=== PATIENT | female | born 1965 | race Caucasian/White ===

== ENCOUNTER 2019-12-25 08:59 | Outpatient (REF) | payer OTHER, SELFPAY ==
[2019-12-25 11:34] LABS: Free T4 (Free Thyroxine) 1.26 ng/dL (0.71-1.85)
== END 2019-12-25 09:00 | disposition home or self-care (01) ==
LOC: HO.10HDL 08:59
PROVIDERS: Visit Provider Internal Medicine Endocrinology, Diabetes & Metabolism
DX: E03.8 Other specified hypothyroidism (principal)
CPT/HCPCS: 84439; 84443

== ENCOUNTER → 2020-01-19 13:59 | Outpatient (BNVA) | payer OTHER, SELFPAY | PROVIDERS: PCP Internal Medicine; Referring Provider Internal Medicine; Visit Provider Internal Medicine Cardiovascular Disease | DX: R00.2 Palpitations (principal) | CPT/HCPCS: 93005; 99212 ==

== ENCOUNTER → 2020-01-26 09:30 | Outpatient (BNVA) | payer OTHER, SELFPAY | PROVIDERS: PCP Internal Medicine; Visit Provider Internal Medicine Cardiovascular Disease | DX: Z76.89 Persons encountering health services in other specified circumstances (principal) ==

== ENCOUNTER → 2020-01-26 | Outpatient (REF) | payer OTHER, SELFPAY ==
--- NOTE | 2020-01-26 13:30 | ECG_ITS ---
Hook-up date: 2020-01-26 10:37:00 Duration: 47:59:00 Test Indications: PALPITATIONS Medications: [id number] QRS complexes * Ventricular ectopics which represent % of total QRS comp. * Supraventricular ectopics which represent % of total QRS comp. * Paced QRS complexs which represent % of total QRS comp. VENTRICULAR ECTOPY * Isolated * Bigeminal Cycles * Couplets * Runs * Beats in Runs * Beats LONGEST at * BPM at :: -- * Beats FASTEST at * BPM at :: -- SUPRAVENTRICULAR ECTOPY * Isolated * Couplets * Runs * Beats in Runs * Beats LONGEST at * BPM at :: -- * Beats FASTEST at * BPM at :: -- HEART RATES 47 MIN at 05:08:13 2020-01-27 65 AVG 131 MAX at 09:20:52 2020-01-27 LONGEST RR 1.3040 secs at 03:40:13 2020-01-28 S-T LEVELS Channel 1 - 128 mm at 10:37:00 2020-01-26 - 128 mm at 10:37:00 2020-01-26 Channel 2 - 128 mm at 10:37:00 2020-01-26 - 128 mm at 10:37:00 2020-01-26 Channel 3 - 128 mm at 02:95:61 -- - 128 mm at 02:95:61 Basic rhythm Normal sinus rhythm No long pause or profound bradycardia No dangerous dysrhythm periods No diary submitted Referred By: Brennon Millard Overread By: ROCIO MURO MD
== END ==
LOC: HO.CARD
PROVIDERS: Visit Provider Internal Medicine Cardiovascular Disease
DX: R00.2 Palpitations (principal)
CPT/HCPCS: 93226

== ENCOUNTER 2020-01-28 07:45 | Outpatient (REF) | payer OTHER, SELFPAY ==
--- NOTE | 2020-01-28 07:49 | MM_ITS ---
EXAMINATION: MM SCREENING DIGITAL MAMMOGRAPHY, BILATERAL CLINICAL INFORMATION: Screening. Asymptomatic. The lifetime risk of breast cancer based on the Tyrer-Cuzick Model is 6%. COMPARISON: Mammography: 01/15/2019, 01/01/2018 TECHNIQUE: Digital mammography is performed in craniocaudal and mediolateral oblique views along with computer-aided detection (CAD). Additional bilateral exaggerated CC views are provided. FINDINGS: The breasts are heterogeneously dense, which may obscure small masses (ACR BI-RADS breast composition Category c). There are no significant masses, abnormal calcifications, or other abnormalities. There are scattered calcifications central and outer breasts again noted. The left CC synthesized view has some digital processing artifact, not present on tomography or other 2 views. The axilla and skin contours are unremarkable. MM/MM screening mammo BI IMPRESSION: No significant changes from prior exams. ASSESSMENT: BI-RADS 2: Benign RECOMMENDATION: Routine annual mammography screening. This patient's information was entered into a reminder system with a target due date for their next mammogram.
== END 2020-01-28 07:46 | disposition home or self-care (01) ==
LOC: HO.MAMMO 07:45
PROVIDERS: PCP Internal Medicine; Visit Provider Internal Medicine
DX: Z12.31 Encounter for screening mammogram for malignant neoplasm of breast (principal)
CPT/HCPCS: 77067

== ENCOUNTER 2020-02-16 08:46 | Outpatient (REF) | payer OTHER, SELFPAY ==
[2020-02-16 11:14] LABS: Free T4 (Free Thyroxine) 1.08 ng/dL (0.71-1.85); Thyroid Stimulating Hormone 0.39 uIU/mL (0.32-4.0)
== END 2020-02-16 08:47 | disposition home or self-care (01) ==
LOC: HO.10HDL 08:46
PROVIDERS: Visit Provider Internal Medicine Endocrinology, Diabetes & Metabolism
DX: E03.8 Other specified hypothyroidism (principal)
CPT/HCPCS: 36415; 84439; 84443

== ENCOUNTER 2020-02-27 11:55 | Outpatient (REF) | payer OTHER, SELFPAY | END 2020-02-27 11:56 | disposition home or self-care (01) | LOC: HO.LNP 11:55 | PROVIDERS: Visit Provider Nurse Practitioner Family | DX: Z20.822 Contact with and (suspected) exposure to COVID-19 (principal) | CPT/HCPCS: U0003 ==

== ENCOUNTER 2020-05-10 11:11 | Outpatient (REF) | payer OTHER, SELFPAY ==
--- NOTE | ~2020-05-10 | XR_ITS ---
EXAMINATION: XR CLAVICLE, LEFT CLINICAL INFORMATION: Hypertrophy bone, left shoulder COMPARISON: Left shoulder 07/22/2009 TECHNIQUE: Two views of the left clavicle. FINDINGS: The clavicle is intact. The bones and soft tissues are normal. No fracture. Acromioclavicular joint alignment is anatomic. XR/XR clavicle LT IMPRESSION: Normal left clavicle. No change from 07/23/2019.
== END 2020-05-10 11:12 | disposition home or self-care (01) ==
LOC: HO.HMGCX 11:11
PROVIDERS: PCP Internal Medicine; Visit Provider Nurse Practitioner Family
DX: M89.312 Hypertrophy of bone, left shoulder (principal)
CPT/HCPCS: 73000

== ENCOUNTER 2020-05-12 10:23 | Outpatient (REF) | payer OTHER, SELFPAY ==
--- NOTE | ~2020-05-12 | US_ITS ---
EXAMINATION: US SOFT TISSUE NECK CLINICAL INFORMATION: Enlargement of clavicle, bump on the clavicle. COMPARISON: None. TECHNIQUE: Ultrasound of the neck soft tissues is performed with high- frequency crespo-scale imaging and color Doppler. FINDINGS: Limited imaging through the left medial collar bone reveals no swelling, mass. There are no lymph nodes seen in the area of palpable lump or medial clavicular bone. US/US soft tiss head and/or neck IMPRESSION: No focal lesion or mass seen along the left medial collar bone. No abnormal lymph nodes seen either.
== END 2020-05-12 10:24 | disposition home or self-care (01) ==
LOC: HO.HMGCX 10:23
PROVIDERS: PCP Internal Medicine; Visit Provider Nurse Practitioner Family
DX: M89.312 Hypertrophy of bone, left shoulder (principal)
CPT/HCPCS: 76536

== ENCOUNTER → 2020-06-08 08:22 | Outpatient (BNVA) | payer OTHER, SELFPAY | PROVIDERS: PCP Internal Medicine; Referring Provider Internal Medicine; Visit Provider Internal Medicine Endocrinology, Diabetes & Metabolism | DX: E03.8 Other specified hypothyroidism (principal); E06.3 Autoimmune thyroiditis | CPT/HCPCS: 99212 ==

== ENCOUNTER 2020-09-10 07:54 | Outpatient (REF) | payer OTHER, SELFPAY ==
[2020-09-10 11:09] LABS: MANUAL DIFF FLAG NO
[2020-09-10 11:23] LABS: Basophils Percent Auto 0.8 % (0-2); Eosinophils Absolute Auto 0.1 X10*3/uL (0.0-0.4); Eosinophils Percent Auto 1.5 % (0-4); Hematocrit 39.1 % (37-47); Hemoglobin 12.7 g/dl (12.0-16.0); Imm Gran Abs Auto 0.02 X10*3/uL (0.00-0.03); Imm Gran Pct Auto 0.4 % (0.0-0.4); Lymphocytes Absolute Auto 1.7 X10*3/uL (1.2-4.9); Lymphocytes Percent Auto 32.6 % (20-40); Mean Corpuscular HGB Conc 32.5 g/dl (31.0-35.0); Mean Corpuscular Hemoglobin 30.1 pg (27.0-33.0); Mean Corpuscular Volume 92.7 fL (80-98); Mean Platelet Volume 10.9 fL (9.4-12.3); Monocytes Absolute Auto 0.4 X10*3/uL (0.1-1.2); Monocytes Percent Auto 8.3 % (2-11); Neutrophils Percent Auto 56.4 % (45-73); Platelet Count 275 X10*3/uL (160-400); Red Blood Count 4.22 X10*6/uL (4.20-5.50); Red Cell Distribution Width 12.6 % (11.0-16.0); White Blood Count 5.3 X10*3/uL (4.8-10.8)
[2020-09-10 11:34] LABS: Alanine Aminotransferase 24 U/L (0-31); Albumin Level 4.4 g/dL (3.5-5.0); Alkaline Phosphatase 82 U/L (39-117); Anion Gap 11 (12-20); Aspartate Amino Transferase 25 U/L (5-31); Bilirubin Total 0.8 mg/dL (0.0-1.0); Blood Urea Nitrogen 11 mg/dL (9-16); Calcium 9.4 mg/dL (8.4-10.2); Carbon Dioxide 28 mmol/L (22-29); Chloride 105 mmol/L (96-108); Estimated Glomerular Filt Rate > 60; Glucose Random 88 mg/dL (60-115); Sodium 139 mmol/L (135-145); Total Protein 7.1 g/dL (6.5-8.0)
[2020-09-10 11:58] LABS: TSH reflex Free T4 1.03 uIU/mL (0.32-4.0)
[2020-09-10 11:59] LABS: Free T4 (Free Thyroxine) 1.06 ng/dL (0.71-1.85); Thyroid Stimulating Hormone 1.02 uIU/mL (0.32-4.0)
== END 2020-09-10 07:55 | disposition home or self-care (01) ==
LOC: HO.HMGCLDS 07:54
PROVIDERS: Internal Medicine Endocrinology, Diabetes & Metabolism; PCP Internal Medicine; Visit Provider Internal Medicine
DX: E03.8 Other specified hypothyroidism (principal); M54.2 Cervicalgia; R22.1 Localized swelling, mass and lump, neck; E06.3 Autoimmune thyroiditis
CPT/HCPCS: 36415; 80053; 84439; 84443; 85025

== ENCOUNTER 2020-09-21 11:23 | Outpatient (REF) | payer OTHER, SELFPAY ==
--- NOTE | ~2020-09-21 | US_ITS ---
EXAMINATION: US THYROID CLINICAL INFORMATION: Hypothyroidism. COMPARISON: Ultrasound soft tissue head and/or neck 05/12/2020. TECHNIQUE: Linear transducer grayscale and color Doppler examination with attention to the region of the thyroid. FINDINGS: SIZE: Measurements of the thyroid lobes and nodules are given in sagittal, anteroposterior and transverse dimensions respectively. Right Thyroid Lobe: 2.8 x 1.6 x 1.1 cm, volume 2.6 mL. Parenchyma: The gland echotexture is heterogeneous. Thyroid vascularity is increased. Left Thyroid Lobe: 3.6 x 1.2 x 1.5 cm, volume 3.4 mL. Parenchyma: The gland echotexture is heterogeneous. Thyroid vascularity is increased. Isthmus: 0.2 cm in maximum AP dimension. Estimated total number of nodules greater than or equal to 1 cm: 0. Motor Equipment Commanding Officer nodules are described as follows: 1. Location: Left medial upper. Size: 0.29 x 0.22 x 0.39 cm, volume 0.01 mL. Nodule characteristics: Composition: Cystic(0). ACR TI-RADS total points: 0 ACR TI-RADS category: 1 NODES: No lymphadenopathy is seen in the tissue surrounding the thyroid gland. US/US thyroid IMPRESSION: Heterogeneous vascular nonenlarged thyroid gland with punctate cluster of calcification midpole medially right lobe. Subcentimeter nonsuspicious nodule left lobe. Recommend continued ultrasound follow-up. ACR TI-RADS RECOMMENDATION REFERENCE: Ultrasound-guided fine-needle aspiration, followup ultrasound, no further follow up. * TR1 (0 point) and TR 2 (2 points): No FNA or follow up * TR3 (3 points): FNA if more than or equal to 2.5 cm in maximum dimension, followup ultrasound in 1, 3 and 5 years if 1.5 to 2.4 cm in maximum dimension. * TR4 (4-6 points): FNA if more than or equal to 1.5 cm in maximum dimension, followup ultrasound in 1, 2, 3 and 5 years if 1 to 1.4 cm in maximum dimension. * TR5 (more than or equal to 7 points): FNA if more than or equal to 1 cm in maximum dimension, followup ultrasound every year for 5 years if 0.5 to 0.9 cm in maximum dimension. * TR3, TR4 or TR5 nodules that are below the size threshold for follow up receive no follow up.
== END 2020-09-21 11:24 | disposition home or self-care (01) ==
LOC: HO.HMGCX 11:23
PROVIDERS: PCP Internal Medicine; Visit Provider Internal Medicine
DX: E03.8 Other specified hypothyroidism (principal); M54.2 Cervicalgia; R22.1 Localized swelling, mass and lump, neck
CPT/HCPCS: 76536

== ENCOUNTER 2020-10-09 13:24 | Outpatient (REF) | payer OTHER, SELFPAY | END 2020-10-09 13:25 | disposition home or self-care (01) | LOC: HO.LNP 13:24 | PROVIDERS: Visit Provider Hospitalist | DX: Z20.822 Contact with and (suspected) exposure to COVID-19 (principal) | CPT/HCPCS: U0003; U0005 ==

== ENCOUNTER 2021-03-07 07:55 | Outpatient (REF) | payer OTHER, SELFPAY ==
--- NOTE | ~2021-03-07 | MM_ITS ---
EXAMINATION: MM SCREENING DIGITAL BREAST TOMOSYNTHESIS, BILATERAL CLINICAL INFORMATION: Screening. Asymptomatic. The lifetime risk of breast cancer based on the Tyrer-Cuzick Model is 6%. COMPARISON: Mammography: 01/28/2020, 01/15/2019, 01/01/2018 TECHNIQUE: Digital breast tomosynthesis is performed in both the craniocaudal and mediolateral oblique views along with computer-aided detection (CAD). Synthesized 2D images are generated from the tomosynthesis. Additional bilateral MLO views are provided. FINDINGS: The breasts are heterogeneously dense, which may obscure small masses (ACR BI-RADS breast composition Category c). There are no significant masses, abnormal calcifications, or other abnormalities. Parenchymal pattern is similar to prior studies. There is no developing density or architectural abnormality. The axilla and skin contours are unremarkable. No significant changes. MM/MM tomosynthesis screening BI IMPRESSION: No mammographic evidence of malignancy. ASSESSMENT: BI-RADS 1: Negative RECOMMENDATION: Routine annual mammography screening. This patient's information was entered into a reminder system with a target due date for their next mammogram.
== END 2021-03-07 07:56 | disposition home or self-care (01) ==
LOC: HO.MAMMO 07:55
PROVIDERS: PCP Internal Medicine; Visit Provider Internal Medicine
DX: Z12.31 Encounter for screening mammogram for malignant neoplasm of breast (principal)
CPT/HCPCS: 77063; 77067

== ENCOUNTER 2021-05-31 07:58 | Outpatient (REF) | payer OTHER, SELFPAY ==
[2021-05-31 09:49] LABS: Thyroid Stimulating Hormone 1.78 uIU/mL (0.32-4.0)
== END 2021-05-31 07:59 | disposition home or self-care (01) ==
LOC: HO.LAB 07:58
PROVIDERS: PCP Internal Medicine; Visit Provider Internal Medicine Endocrinology, Diabetes & Metabolism
DX: E03.8 Other specified hypothyroidism (principal); E06.3 Autoimmune thyroiditis
CPT/HCPCS: 36415; 84439; 84443; 99212

== ENCOUNTER 2021-08-08 09:50 | Outpatient (REF) | payer OTHER, SELFPAY ==
[2021-08-08 12:35] LABS: TSH reflex Free T4 0.79 uIU/mL (0.32-4.0)
[2021-08-08 12:42] LABS: Alanine Aminotransferase 23 U/L (0-31); Albumin Level 4.4 g/dL (3.5-5.0); Alkaline Phosphatase 94 U/L (39-117); Anion Gap 11 (12-20); Aspartate Amino Transferase 23 U/L (5-31); Bilirubin Total 0.4 mg/dL (0.0-1.0); Blood Urea Nitrogen 15 mg/dL (9-16); Calcium 9.3 mg/dL (8.4-10.2); Carbon Dioxide 28 mmol/L (22-29); Chloride 106 mmol/L (96-108); Estimated Glomerular Filt Rate > 60; Glucose Random 101 mg/dL (60-115); Potassium 4.9 mmol/L (3.3-5.1); Sodium 140 mmol/L (135-145); Total Protein 7.1 g/dL (6.5-8.0)
== END 2021-08-08 09:51 | disposition home or self-care (01) ==
LOC: HO.HMGCLDS 09:50
PROVIDERS: Visit Provider Internal Medicine
DX: E03.9 Hypothyroidism, unspecified (principal); Z91.09 Other allergy status, other than to drugs and biological substances
CPT/HCPCS: 36415; 80053; 84443

== ENCOUNTER 2021-09-22 12:08 | Outpatient (REF) | payer OTHER, SELFPAY ==
[2021-09-22 12:57] LABS: Influenza A PCR NEGATIVE (Negative); Influenza B PCR NEGATIVE (Negative); Resp Syncy Virus RNA Qual PCR NEGATIVE (Negative); SARS COV2 PCR INHOUSE NEGATIVE (Negative)
== END 2021-09-22 12:09 | disposition home or self-care (01) ==
LOC: HO.LNP 12:08
PROVIDERS: Visit Provider Internal Medicine
DX: Z20.822 Contact with and (suspected) exposure to COVID-19 (principal); R09.89 Other specified symptoms and signs involving the circulatory and respiratory systems
CPT/HCPCS: 0241U

== ENCOUNTER 2022-01-27 00:21 | Emergency (ER) | payer OTHER, SELFPAY ==
[2022-01-27 00:23] VITALS: BP 130/91; PULSE 70; RESP 18; TEMP 36.4; O2SAT 100; BMI 22.3
[2022-01-27 00:35] LABS: MANUAL DIFF FLAG NO
[2022-01-27 00:44] LABS: Basophils Percent Auto 0.6 % (0-2); Eosinophils Absolute Auto 0.1 X10*3/uL (0.0-0.4); Eosinophils Percent Auto 0.9 % (0-4); Hematocrit 37.3 % (37.0-47.0); Hemoglobin 12.6 g/dl (12.0-16.0); Imm Gran Abs Auto 0.01 X10*3/uL (0.00-0.03); Imm Gran Pct Auto 0.1 % (0.0-0.4); Lymphocytes Absolute Auto 2.8 X10*3/uL (1.2-4.9); Lymphocytes Percent Auto 41.5 % (20-40); Mean Corpuscular HGB Conc 33.8 g/dl (31.0-35.0); Mean Corpuscular Hemoglobin 30.8 pg (27.0-33.0); Mean Corpuscular Volume 91.2 fL (80.0-98.0); Mean Platelet Volume 10.8 fL (9.4-12.3); Monocytes Absolute Auto 0.4 X10*3/uL (0.1-1.2); Neutrophils Absolute Auto 3.4 x10*3/uL (2.0-8.3); Neutrophils Percent Auto 50.9 % (45-73); Platelet Count 226 X10*3/uL (160-400); Red Blood Count 4.09 X10*6/uL (4.20-5.50); Red Cell Distribution Width 12.1 % (11.0-16.0); White Blood Count 6.7 X10*3/uL (4.8-10.8)
--- NOTE | 2022-01-27 00:59 | ED_ITS ---
HPI - GI Bleed General Chief complaint: GI Bleed Stated complaint: rectal bleeding Time Seen by Provider: 01/27/22 00:50 Source: patient Mode of arrival: ambulatory Limitations: no limitations History of Present Illness HPI Narrative: rectal bleeding tonight,denies abdominal pain,denies vomiting,hx of hemorroid complaint: blood streaked stool Onset (ago): hour(s) (3) Pain Consistency: intermittent Severity: mild Relieving factors: none Exacerbating factors: none Related Data Previous Rx's Medication Instructions Recorded levothyroxine 100 mcg tablet 100 mcg PO .COMPLEX 30 days #30 07/12/21 tabs doxycycline monohydrate 100 mg 100 mg PO BID #14 caps 12/17/21 capsule mupirocin 2 % topical ointment 1 appl topical BID #15 grams 12/17/21 fluconazole 150 mg tablet 150 mg PO .COMPLEX 2 doses #2 tabs 12/27/21 Allergies Allergy/AdvReac Type Severity Reaction Status Date / Time No Known Allergies Allergy Unknown Verified 12/17/21 09:13 Review of Systems Constitutional: Constitutional: Reports no additional constitutional complaints Eyes: Eyes: Reports no additional eye complaints Respiratory: Respiratory: Reports no additional respiratory complaints [facility] Past Medical History Attestation statement: The following information was validated with the patient. [facility] Narrative: hypothyroidism Medical History Hypothyroidism Surgical History H/O dilation and curettage History of partial hysterectomy Family History Family History Father Alzheimer disease Mother Lung cancer Social History Social History Housing: House Alcohol intake: current Alcohol intake frequency: a few times a month Patient Tobacco Use Status: Former Tobacco user Tobacco use type: Cigarette Cigarettes Per Day: 1 Years Smoked: 20 years Smoked in Last 30 Days: No e-Cigarette/Vaping Use: Never Used Use of substances other than those prescribed or required for medical reasons: No Advance Directives: No Advance Directives Information Provided: No Patient : No service: No Current occupational status: employed Cognitive needs: No Hearing needs: No Vision needs: No Physical Exam Vital Signs: Vital Signs: Last Vital Signs Temp 97.6 F 01/27/22 00:23 Pulse 70 01/27/22 00:23 Resp 18 01/27/22 00:23 BP 130/91 H 01/27/22 00:23 Pulse Ox 100 01/27/22 00:23 O2 Del Method 01/27/22 00:23 BMI result Body Mass Index 22.3 Const: General: cooperative, healthy appearing and comfortable Orientation/consciousness: oriented to person, oriented to place, oriented to time and patient oriented x3 HEENT: Head: Yes normal to inspection General nose exam: Normal external nose present Face and sinus: Yes normal facial exam Mouth: Normal oral and palatal mucosa present Throat: Yes posterior oropharynx normal Neck: Neck: Yes normal visual inspection and Yes full ROM Chest: Chest palpation & inspection: normal inspection of the chest Resp: Effort & Inspection: normal respiratory effort and able to speak in complete sentences Auscultation: clear to auscultation bilaterally Cardio: Rate: regular rate Rhythm: regular rhythm GI: Inspection: Yes normal to inspection Palpation (GI): Soft to palpation, not firm, nontender and no guarding Auscultation: normal bowel sounds Rectal Exam - Female: normal sphincter tone and External hemorrhoid(s) present (large hemorrhoid ) Neuro: General: oriented to person, oriented to place, oriented to time and patient oriented x3 Course Reevaluation(s) Reevaluation #1: I did a rectal exam she has a large external hemorrhoid, the etiology of the bleeding most likely is the hemorrhoid, she has a normal H&H, I think she can be discharged home with follow-up with a cable television installer. I discussed this with the patient she is very comfortable with the plan. Shared decision making done she agree with the plan of care. Time: 01:07 Medical Decision Making Differential Diagnosis divericular bleeding.colon ca Admission/Observation Consideration of admission/observation: Escalation of care including admission/observation considered Lab Data MDM Lab Attestation statement: I reviewed the patient's lab results. Result Diagrams: 01/27/22 00:31 01/27/22 00:31 Labs: Lab Results 01/27/22 01/27/22 01/27/22 Range/Units 00:31 00:31 01:11 WBC 6.7 (4.8-10.8) X10*3/uL RBC 4.09 L (4.20-5.50) X10*6/uL Hgb 12.6 (12.0-16.0) g/dl Hct 37.3 (37.0-47.0) % MCV 91.2 (80.0-98.0) fL MCH 30.8 (27.0-33.0) pg MCHC 33.8 (31.0-35.0) g/dl RDW 12.1 (11.0-16.0) % Plt Count 226 (160-400) X10*3/uL MPV 10.8 (9.4-12.3) fL Immature Gran % (Auto) 0.1 (0.0-0.4) % Neut % (Auto) 50.9 (45-73) % Lymph % (Auto) 41.5 H (20-40) % [place] % (Auto) 6.0 (2-11) % Eos % (Auto) 0.9 (0-4) % Baso % (Auto) 0.6 (0-2) % Lymph # (Auto) 2.8 (1.2-4.9) X10*3/uL [place] # (Auto) 0.4 (0.1-1.2) X10*3/uL Eos # (Auto) 0.1 (0.0-0.4) X10*3/uL Baso # (Auto) 0.0 (0.0-0.2) X10*3/uL Abs Immat Gran (auto) 0.01 (0.00-0.03) X10*3/uL Absolute Neuts (auto) 3.4 (2.0-8.3) x10*3/uL Absolute Nucleated RBC 0.000 (0.0-0.012) X10*3/uL Nucleated RBC % (auto) 0.0 (0.0-0.2) /100WBC Sodium 137 (135-145) mmol/L Potassium 3.8 D (3.3-5.1) mmol/L Chloride 102 (96-108) mmol/L Carbon Dioxide 28 (22-29) mmol/L Anion Gap 11 L (12-20) BUN 12 (9-16) mg/dL Creatinine 0.66 (0.5-1.4) mg/dL Estim Creat Clear Calc 83.1 Estimated GFR > 60 Random Glucose 95 (60-115) mg/dL Calcium 9.5 (8.4-10.2) mg/dL Total Bilirubin 0.4 (0.0-1.0) mg/dL AST 25 (5-31) U/L ALT 24 (0-31) U/L Alkaline Phosphatase 98 (39-117) U/L Total Protein 7.1 (6.5-8.0) g/dL Albumin 4.5 (3.5-5.0) g/dL Stool Occult Blood NEGATIVE (NEGATIVE) Discharge Plan Discharge Clinical Impression: Rectal bleeding, Hematochezia, Hemorrhoids Patient Disposition: Still a Patient Instructions: Hemorrhoids (ED), Rectal Bleeding (ED) Additional Instructions: Follow-up with gastroenterology call 09:00 o'clock and make an appointment return to the emergency department if you worse a few feeling dizzy if you have further blood from the rectum Prescriptions: No Action levothyroxine 100 mcg tablet 100 mcg PO .COMPLEX 30 Days Qty: 30 5RF Rx Instructions: 100 mcg PO see below; Take 1 tablet Sun and 1/2 Tablet on Sunday fluconazole 150 mg tablet 150 mg PO .COMPLEX Qty: 2 0RF Rx Instructions: 150 mg orally take one tab today; repeat in 2 days if needed; doxycycline monohydrate 100 mg capsule 100 mg PO BID Qty: 14 0RF mupirocin 2 % ointment 1 appl topical BID Qty: 15 0RF Referrals: Kiley Shea MD [Physician] - 3 days Interventions: ED Discharge Assessment Last Done: 01/27/22 01:56 Discharge Date/Time: 01/27/22 01:57
[2022-01-27 01:10] LABS: Alanine Aminotransferase 24 U/L (0-31); Albumin Level 4.5 g/dL (3.5-5.0); Alkaline Phosphatase 98 U/L (39-117); Anion Gap 11 (12-20); Aspartate Amino Transferase 25 U/L (5-31); Blood Urea Nitrogen 12 mg/dL (9-16); Calcium 9.5 mg/dL (8.4-10.2); Carbon Dioxide 28 mmol/L (22-29); Chloride 102 mmol/L (96-108); Creatinine Clr Calc Pharmacy 83.1; Estimated Glomerular Filt Rate > 60; Glucose Random 95 mg/dL (60-115); Potassium 3.8 mmol/L (3.3-5.1); Sodium 137 mmol/L (135-145); Total Protein 7.1 g/dL (6.5-8.0)
[2022-01-27 01:16] LABS: Bilirubin Total 0.4 mg/dL (0.0-1.0)
[2022-01-27 01:27] LABS: OBS Int Ctl Valid YES; OBS1 NEGATIVE (NEGATIVE)
== END 2022-01-27 01:57 | disposition still patient (30) ==
PROVIDERS: Emergency Provider Emergency Medicine; PCP Internal Medicine
DX: K64.4 Residual hemorrhoidal skin tags (principal); K92.2 Gastrointestinal hemorrhage, unspecified; K92.1 Melena
CPT/HCPCS: 36415; 80053; 82272; 85025; 99283; 99284

== ENCOUNTER 2022-02-13 09:38 | Emergency (ER) | payer OTHER, SELFPAY ==
[2022-02-13 10:03] VITALS: BP 148/58; PULSE 75; RESP 16; TEMP 36.6; O2SAT 97; BMI 22.3
--- NOTE | 2022-02-13 10:37 | ED_ITS ---
HPI - URI/Sore Throat General Chief Complaint: Upper Respiratory Symptoms Stated Complaint: body aches sore throat Time Seen by Provider: 02/13/22 10:17 Source: patient Mode of arrival: ambulatory Limitations: no limitations History of Present Illness HPI Narrative: 57-year-old female here with sore throat, body aches, headache or 2 days. Patient denies difficulty breathing, chest pain, fevers, abdominal pain, v omiting or diarrhea. Patient reports she had COVID in early 2019. Patient had 2 COVID vaccinations. Patient for she was recently exposed to someone with strep throat Related Data Previous Rx's Medication Instructions Recorded doxycycline monohydrate 100 mg 100 mg PO BID #14 caps 12/17/21 capsule mupirocin 2 % topical ointment 1 appl topical BID #15 grams 12/17/21 fluconazole 150 mg tablet 150 mg PO .COMPLEX 2 doses #2 tabs 12/27/21 levothyroxine 100 mcg tablet 100 mcg PO .COMPLEX 30 days #30 02/09/22 tabs Allergies Allergy/AdvReac Type Severity Reaction Status Date / Time No Known Allergies Allergy Unknown Verified 12/17/21 09:13 Review of Systems Review of Systems: Yes all other systems are reviewed and are negative Constitutional: Constitutional: Reports no additional constitutional complaints, Reports body ache(s), Denies chills, Denies fever(s), Denies headache(s) and Denies weakness Eyes: Eyes: Reports no additional eye complaints and Denies change in vision ENT: Reports system reviewed and no additional complaints, except as documented, Denies dizziness, Denies headache(s), Denies nasal congestion, Denies nasal discharge, Denies neck pain and Reports sore throat Cardiovascular: Cardiovascular: Reports no additional cardiovascular complaints, Denies chest pain, Denies leg edema and Denies dyspnea Respiratory: Respiratory: Reports no additional respiratory complaints, Denies cough and Denies dyspnea Gastrointestinal: Gastrointestinal: Reports no additional gastrointestinal complaints, Denies abdominal pain, Denies diarrhea, Denies nausea and Denies vomiting Genitourinary: Genitourinary: Reports no additional female genitourinary complaints and Denies urinary incontinence Musculoskeletal: Musculoskeletal: Reports no additional musculoskeletal complaints, Denies back pain, Denies arthralgias, Denies joint swelling, Denies neck pain, Denies numbness and Denies tingling Integumentary/Breasts: Skin/Breast: Reports system reviewed and no additional complaints, except as docu and Denies rash Neurologic: Reports system reviewed and no additional complaints, except as documented, Denies Abnormal speech present, Denies dizziness, Denies headache(s), Denies numbness, Denies tingling and Denies weakness PMFSH Past Medical History Attestation statement: The following information was validated with the patient. Source: old records reviewed and nursing notes reviewed Medical History Hypothyroidism Surgical History H/O dilation and curettage History of partial hysterectomy Family History Family History Father Alzheimer disease Mother Lung cancer Social History Social History Housing: House Alcohol intake: never Patient Tobacco Use Status: Former Tobacco user Tobacco use type: Cigarette Cigarettes Per Day: 1 Years Smoked: 20 years Smoked in Last 30 Days: No e-Cigarette/Vaping Use: Never Used Use of substances other than those prescribed or required for medical reasons: No Advance Directives: No Advance Directives Information Provided: Yes service: No Current occupational status: employed Cognitive needs: No Hearing needs: No Vision needs: No Physical Exam Vital Signs: Vital Signs: Last Vital Signs Temp 97.9 F 02/13/22 10:03 Pulse 75 02/13/22 10:03 Resp 16 02/13/22 10:03 BP 148/58 H 02/13/22 10:03 Pulse Ox 97 02/13/22 10:03 O2 Del Method 02/13/22 10:03 BMI result Body Mass Index 22.3 Const: General: cooperative, healthy appearing, comfortable and no acute distress Orientation/consciousness: patient oriented x3 Limitations: no limitations HEENT: Head: Yes normal to inspection Ears: hearing grossly normal bilaterally and TM's normal bilaterally General nose exam: Normal external nose present Face and sinus: Yes normal facial exam Mouth: Normal oral and palatal mucosa present Throat: Yes posterior oropharynx normal, Yes tonsils normal and Yes uvula midline Eyes: General: appearance normal, both eyes and all related structures Pupils: Equal, round and reactive pupils present Neck: Neck: Yes normal visual inspection Chest: Chest palpation & inspection: normal inspection of the chest Resp: Effort & Inspection: normal respiratory effort Auscultation: clear to auscultation bilaterally Cardio: Rate: regular rate Rhythm: regular rhythm Peripheral pulses: Peripheral pulses 2+ throughout GI: Inspection: Yes normal to inspection Palpation (GI): Soft to palpation and nontender Auscultation: normal bowel sounds Back/Spine/Pelvis: Thoracic/Lumbar Spine: thoracic and lumbar spine normal to inspection Skin: General skin exam: no rashes or lesions noted Neuro: General: patient oriented x3, no focal motor deficits and normal sensation to monofilament Cranial nerves: Yes Equal, round and reactive pupils present Cognition (Neuro): normal cognition Speech: No Abnormal speech present Gait exam (Neuro): Normal gait present Motor exam (neuro): 5/5 motor strength present throughout Extrem: General: Yes normal to inspection Medical Decision Making Medical Decision Making [facility] Narrative: 57-year-old female here with sore throat and body aches, headache for 2 days Exam is benign. Vitals stable. Will send testing for strep, flu, COVID Differential Diagnosis Differential Diagnoses: The differential diagnosis associated with the presentation includes Strep pharyngitis-exam not consistent with Influenza, viral syndrome Admission/Observation Consideration of admission/observation: Escalation of care including admission/observation considered No hypoxia necessitating admission. Patient overall well appearing. Lungs clear. Plan for discharge home with supportive care Lab Data [facility] Lab Attestation statement: I reviewed the patient's lab results. Labs: Lab Results 02/13/22 02/13/22 02/13/22 Range/Units 10:21 10:21 10:21 COVID-19 (ANITA) Positive A (Negative) COVID-19 Clin Com See Note Influenza Type A (LANA) Negative (Negative) Influenza Type B (LANA) Negative (Negative) Influenza A & B Note See Note S. pyogenes GrpA [facility]NA Negative (Negative) Prescription Management I considered prescription management with: Antiviral COVID screen is positive. We discussed Paxlovid which is the current treatment available for COVID. We discussed that there is only and EUA use for this and it is not FDA approved. Offered patient but she declined treatment Discharge Plan Discharge Clinical Impression: COVID-19 Patient Disposition: Home, Self-Care Instructions: COVID-19 (Coronavirus Disease 2019) (ED) Additional Instructions: Quarantine for 5 days Alternate Motrin or Tylenol for pain or fever Increase fluids, rest Return for worsening symptoms COVID screen is positive. Strep and flu screen are negative We did discuss the medication Paxlovid. At this time you declined treatment with the medication. Prescriptions: No Action fluconazole 150 mg tablet 150 mg PO .COMPLEX Qty: 2 0RF Rx Instructions: 150 mg orally take one tab today; repeat in 2 days if needed; levothyroxine 100 mcg tablet 100 mcg PO .COMPLEX 30 Days Qty: 30 5RF Rx Instructions: 100 mcg PO see below; Take 1 tablet Sun and 1/2 Tablet on Sunday doxycycline monohydrate 100 mg capsule 100 mg PO BID Qty: 14 0RF mupirocin 2 % ointment 1 appl topical BID Qty: 15 0RF Referrals: Theresa Mack MD [Primary Care Provider] - 1 week Interventions: ED Discharge Assessment Last Done: 02/13/22 11:05 Discharge Date/Time: 02/13/22 11:06
[2022-02-13 10:44] LABS: IDNOW Serial# 6674DD1D
[2022-02-13 10:45] LABS: Strep A Nucleic Acid Negative (Negative)
[2022-02-13 10:46] LABS: COVID-19 Test Positive (Negative); IDNOW Serial# 16C4AD1C
[2022-02-13 10:51] LABS: IDNOW Serial# BCCEAD1C; Influenza A Negative (Negative); Influenza B2 Negative (Negative)
== END 2022-02-13 11:06 | disposition home or self-care (01) ==
PROVIDERS: Emergency Provider Student in an Organized Health Care Education/Training Program; PCP Internal Medicine
DX: U07.1 COVID-19 (principal); J02.9 Acute pharyngitis, unspecified; Z87.891 Personal history of nicotine dependence
CPT/HCPCS: 87502; 87635; 87651; 99283

== ENCOUNTER → 2022-03-07 09:09 | Outpatient (BNVA) | payer OTHER, SELFPAY | PROVIDERS: PCP Internal Medicine; Visit Provider Internal Medicine | DX: K92.1 Melena (principal) | CPT/HCPCS: 99202 ==

== ENCOUNTER 2022-03-21 07:48 | Outpatient (REF) | payer OTHER, SELFPAY ==
--- NOTE | ~2022-03-21 | MM_ITS ---
EXAMINATION: MM SCREENING DIGITAL BREAST TOMOSYNTHESIS, BILATERAL CLINICAL INFORMATION: Screening. Asymptomatic. The lifetime risk of breast cancer based on the Tyrer-Cuzick Model is 5.1%. COMPARISON: Mammography: March 07, 2021 and studies dating back to May 04, 2015 TECHNIQUE: Digital breast tomosynthesis is performed in both the craniocaudal and mediolateral oblique views along with computer-aided detection (CAD). Synthesized 2D images are generated from the tomosynthesis. FINDINGS: The breasts are extremely dense, which lowers the sensitivity of mammography (ACR BI-RADS breast composition Category d). There are no significant masses, abnormal calcifications, or other abnormalities. MM/MM tomosynthesis screening BI IMPRESSION: No significant changes ASSESSMENT: BI-RADS 1: Negative RECOMMENDATION: Routine annual mammography screening. This patient's information was entered into a reminder system with a target due date for their next mammogram.
== END 2022-03-21 07:49 | disposition home or self-care (01) ==
LOC: HO.MAMMO 07:48
PROVIDERS: PCP Internal Medicine; Visit Provider Internal Medicine
DX: Z12.31 Encounter for screening mammogram for malignant neoplasm of breast (principal)
CPT/HCPCS: 77063; 77067

== ENCOUNTER 2022-05-23 08:42 | Day surgery (SDC) | payer OTHER, SELFPAY ==
[2022-04-13 15:09] VITALS: BMI 23.0
--- NOTE | 2022-04-17 13:30 | HO.ANESPROP2 ---
HPI - Anesthesia Eval Consult details Narrative: 57yo F for Colonoscopy PMFSH Active Problems Active Problems: All Active Problems (Updated 04/13/22 @ 15:07 by Carrie Chavira RN) Palpitations (Acute) Acute sinusitis (Acute) Enlarged clavicle (Acute) Cellulitis (Acute) Other specified hypothyroidism (Acute) Neck pain on right side (Acute) Lump in neck (Acute) Exposure to COVID-19 virus (Acute) Environmental allergies (Acute) Encounter for general adult medical examination with abnormal findings (Acute) Breast screening (Acute) Osteoarthritis of hands, bilateral (Acute) URI (upper respiratory infection) (Acute) Cold sore (Acute) Paronychia (Acute) COVID-19 (Acute) Hematochezia (Acute) Hypothyroidism (Acute) Past Medical History Medical History (Updated 04/13/22 @ 15:07 by Carrie Chavira RN) History of COVID-19 Hypothyroidism Osteoarthritis Family History Family History Father Alzheimer disease Mother Lung cancer Surgical History Surgical History (Updated 04/13/22 @ 15:07 by Carrie Chavira RN) H/O dilation and curettage History of partial hysterectomy Hx of colonoscopy Social History Social History Housing: House Alcohol intake: never Patient Tobacco Use Status: Former Tobacco user Tobacco use type: Cigarette Cigarettes Per Day: 1 Years Smoked: 20 years e-Cigarette/Vaping Use: Never Used service: No Current occupational status: employed Cognitive needs: No Hearing needs: No Vision needs: No Meds Allergies Allergy/AdvReac Type Severity Reaction Status Date / Time No Known Allergies Allergy Unknown Verified 03/07/22 12:10 Exam Exam Date and Time: April 17, 2022 1330 Height,Weight and Vital Signs: Height 5 ft 4 in Weight 60.781 kg Pertinent Lab Results Pertinent Lab Results: Laboratory Tests 01/27/22 01/27/22 00:31 00:31 WBC 6.7 Hgb 12.6 Hct 37.3 Plt Count 226 Sodium 137 Potassium 3.8 D Chloride 102 Carbon Dioxide 28 BUN 12 Creatinine 0.66 Assessment and Plan Assessment Anesthesia Assessment: Chart Reviewed
[2022-05-17 19:05] VITALS: BMI 22.3
--- NOTE | 2022-05-22 12:44 | P.CONAN_ITS ---
HPI - Anesthesia Eval Consult details Narrative: 57yo F for Colonoscopy [facility] Active Problems Active Problems: All Active Problems (Updated 04/13/22 @ 15:07 by Carrie Chavira RN) Palpitations (Acute) Acute sinusitis (Acute) Enlarged clavicle (Acute) Cellulitis (Acute) Other specified hypothyroidism (Acute) Neck pain on right side (Acute) Lump in neck (Acute) Exposure to COVID-19 virus (Acute) Environmental allergies (Acute) Encounter for general adult medical examination with abnormal findings (Acute) Breast screening (Acute) Osteoarthritis of hands, bilateral (Acute) URI (upper respiratory infection) (Acute) Cold sore (Acute) Paronychia (Acute) COVID-19 (Acute) Hematochezia (Acute) Hypothyroidism (Acute) Past Medical History Medical History (Updated 04/13/22 @ 15:07 by Carrie Chavira RN) History of COVID-19 Hypothyroidism Osteoarthritis Family History Family History Father Alzheimer disease Mother Lung cancer Surgical History Surgical History (Updated 04/13/22 @ 15:07 by Carrie Chavira RN) H/O dilation and curettage History of partial hysterectomy Hx of colonoscopy Social History Social History Housing: House Are you a primary primary care coordinator to a significant other at home: No Do you presently have visiting nurse or other home services: No Alcohol intake: never Patient Tobacco Use Status: Former Tobacco user Tobacco use type: Cigarette Cigarettes Per Day: 1 Years Smoked: 20 years e-Cigarette/Vaping Use: Never Used service: No Current occupational status: employed Cognitive needs: No Hearing needs: No Vision needs: No Meds Allergies Allergy/AdvReac Type Severity Reaction Status Date / Time No Known Allergies Allergy Unknown Verified 03/07/22 12:10 Exam Exam Date and Time: May 22, 2022 1244 Height,Weight and Vital Signs: Height 5 ft 4 in Weight 58.967 kg Pertinent Lab Results Pertinent Lab Results: Laboratory Tests 01/27/22 01/27/22 00:31 00:31 WBC 6.7 Hgb 12.6 Hct 37.3 Plt Count 226 Sodium 137 Potassium 3.8 D Chloride 102 Carbon Dioxide 28 BUN 12 Creatinine 0.66 Assessment and Plan Assessment Anesthesia Assessment: Chart Reviewed
--- NOTE | 2022-05-23 08:47 | MHC.SHP ---
Pre-Procedural Eval Section A Date of Service: 05/23/22 Section B Chief Complaint: rectal bleeding Relevant Family History (Specify if Yes): No Relevant Social History: None Present Medications: see Short Stay Collaborative assessment Medical History: Significant History (hypothyroidism ) History of Previous Operations: Relevant previous surgery/procedure and date(s) (H/O dilation and curettage History of partial hysterectomy Hx of colonoscopy) Allergies: Allergies Allergy/AdvReac Type Severity Reaction Status Date / Time No Known Allergies Allergy Unknown Verified 03/07/22 12:10 Review of Systems Sugical H&P ROS: Negative: Constitution, Cardiovascular, Respiratory, Neurological, Psychiatric, Hem-Onc, Allergic/Immunologic, Gastrointestinal, Genitourinary, Musculoskeletal, Integumentary, Endocrine and Eyes/Ears/Nose/Throat Exam Surgical H&P Exam: Normal: HEENT, Normal: Heart, Normal: Lungs, Normal: Extremities, Normal: Abdomen, Normal: Skin and Normal: Neurological Plan Diagnosis/Plan: Unchanged I have reviewed the history and physical and performed a pertinent physical examination on my patient. No changes have occurred unless specified. Time Spent With Patient Time: Total time managing care of this patient today ____ minutes.
[2022-05-23 08:48] VITALS: BP 132/71; PULSE 64; RESP 20; TEMP 36.8; O2SAT 99
[2022-05-23] MEDS: Lactated Ringers 1,000 ML 100 ML IVCONT (09:14)
--- NOTE | 2022-05-23 09:18 | W.PM.OPN ---
Operative Note Operative Note Date of Service: 05/23/22 Narrative: Operative Information Procedure Description: Colonoscopy Indication: rectal bleeding Anesthesia: MAC COLONOSCOPY Instrument: Olympus variable stiffness pediatric scope 190L Colonoscopy Monitoring: Vital signs and clinical assessment, continuous EKG monitoring, Pulse oximetry, Carbon Dioxide monitoring and blood pressure monitoring were done throughout the procedure. Colon withdrawal time was 8 minutes. Procedure: The patient was placed in the left lateral decubitis position and pre-procedure medications were administered. After a digital rectal examination of the ano-rectum, the video colonoscope was inserted into the rectum and advanced through the colon to the cecum/TI. The colonoscope was slowly withdrawn in a retrograde panoramic fashion and the colon mucosa was carefully examined including a retroflexed view of the rectum. Findings and interventions are described below. Procedure Difficulty: moderate, tortuous colon Findings: Terminal Ileum-normal Cecum:normal Ascending Colon: normal Transverse Colon - few small diverticula seen Descending Colon:normal Sigmoid Colon: 8-9 mm sessile polyp removed with cold snare, mild diverticulosis seen Rectum: Retroflexion with small inflammed internal hemorrhoids, grade I Anorectum - normal Colon preparation: Sophia Bowel Preparation Scale Right colon; 3 Transverse colon: 3 Left colon; 3 (0 = Unprepared colon segment with mucosa not seen due to solid stool that cannot be cleared. 1 = Portion of mucosa of the colon segment seen, but other areas of the colon segment not well seen due to staining, residual stool and/or opaque liquid. 2 = Minor amount of residual staining, small fragments of stool and/or opaque liquid, but mucosa of colon segment seen well. 3 = Entire mucosa of colon segment seen well with no residual staining, small fragments of stool or opaque liquid) Impression and Post Procedure Diagnosis: polyp internal hemorrhoids--seems to be the cause of the rectal bleeding diverticular disease Plan: High fiber diet leaflet Avoid straining at stool, epsom salts and sitz bath, anusol supps or cream Repeat Colonoscopy in 5 years if adenomatous polyp, 10 yrs if hyperplastic or earlier if clinically indicated Above findings were reviewed with the patient and relevant handouts were provided if indicated.
[2022-05-23 09:49] VITALS: BP 102/55; PULSE 60; RESP 16; TEMP 36.2; O2SAT 97
[2022-05-23 10:04] VITALS: BP 111/70; PULSE 60; RESP 16; TEMP 36.4; O2SAT 100
== END 2022-05-23 10:30 | disposition home or self-care (01) ==
PROVIDERS: PCP Internal Medicine; Visit Provider Internal Medicine Gastroenterology
PROC: 0DJD8ZZ Inspection of Lower Intestinal Tract, Via Natural or Artificial Opening Endoscopic (ICD-10-PCS; CPT 45378; principal; 2022-05-23 09:50)
DX: K62.5 Hemorrhage of anus and rectum (principal); K63.5 Polyp of colon; K57.30 Diverticulosis of large intestine without perforation or abscess without bleeding; K64.0 First degree hemorrhoids; E03.9 Hypothyroidism, unspecified; M19.042 Primary osteoarthritis, left hand; M19.041 Primary osteoarthritis, right hand; Z79.899 Other long term (current) drug therapy; J30.2 Other seasonal allergic rhinitis; Z86.16 Personal history of COVID-19; Z87.891 Personal history of nicotine dependence
CPT/HCPCS: 45385; 88305

== ENCOUNTER → 2022-05-30 08:05 | Outpatient (BNVA) | payer OTHER, SELFPAY | PROVIDERS: PCP Internal Medicine; Visit Provider Internal Medicine Endocrinology, Diabetes & Metabolism | DX: E03.8 Other specified hypothyroidism (principal); E06.3 Autoimmune thyroiditis | CPT/HCPCS: 99212 ==

== ENCOUNTER 2022-05-30 08:47 | Outpatient (REF) | payer OTHER, SELFPAY ==
[2022-05-30 11:02] LABS: Free T4 (Free Thyroxine) 1.04 ng/dL (0.71-1.85); Thyroid Stimulating Hormone 1.03 uIU/mL (0.32-4.0)
== END 2022-05-30 08:48 | disposition home or self-care (01) ==
LOC: HO.10HDL 08:47
PROVIDERS: Visit Provider Internal Medicine Endocrinology, Diabetes & Metabolism
DX: E03.9 Hypothyroidism, unspecified (principal)
CPT/HCPCS: 36415; 84439; 84443

== ENCOUNTER 2022-10-19 09:13 | Outpatient (AMB) | payer OTHER, SELFPAY ==
[2022-10-19 09:18] VITALS: BP 120/70; BMI 23.2
--- NOTE | 2022-10-19 09:18 | A.OFFVIS_ITS ---
Intake Vital Signs 10/19/22 09:18 Height 5 ft 4 in Weight 135 lb BMI 23.2 BP 120/70 Intake Visit Reasons: vaginal burning Environmental Monitoring Specialist Required: No Information Interpreted: non-clinical & clinical Director Of Patient Financial Services: Director Of Patient Financial Services Present (Jojo) Allergies No Known Allergies Allergy (Unknown, Verified 10/19/22 09:24) Is last menstrual period known: No HPI HPI Comments History of Present Illness Details Presenting complaining of vulvovaginal burning especially after intercourse no vaginal discharge , no itching or vaginal odor PFSH Medical History History of COVID-19 Osteoarthritis Hypothyroidism Surgical History Hx of colonoscopy H/O dilation and curettage History of partial hysterectomy Family History Father Alzheimer disease Mother Lung cancer Social History Housing: House Are you a primary congregational care pastor to a significant other at home: No Do you presently have visiting nurse or other home services: No Alcohol intake: never Patient Tobacco Use Status: Former Tobacco user Tobacco use type: Cigarette Cigarettes Per Day: 1 Years Smoked: 20 years e-Cigarette/Vaping Use: Never Used service: No Current occupational status: employed Cognitive needs: No Hearing needs: No Vision needs: No Female Reproductive History Menstrual Age of Menarche: 14 control method: permanent sterilization Total pregnancies: 2 Full term: 2 Number of Living Children: 2 Date of last pap smear: 11/29/11 (negative) Review of Systems Const All systems reviewed & are unremarkable except as noted in HPI and below Card Reports as per HPI and Reports no additional complaints Resp Reports as per HPI and Reports no additional complaints GI Reports as per HPI and Reports no additional complaints Reports as per HPI Physical Exam Vital Signs: Last Vital Signs BP 120/70 10/19/22 09:18 BMI result Body Mass Index 23.2 Const General: cooperative, healthy appearing and comfortable General: Yes bladder normal to palpation External Female Exam: No lesion Speculum Exam - Vagina: normal appearance of the vagina, normal vaginal discharge and not erythematous Speculum Exam - Cervix: Cervix absent Bimanual exam- vagina & uterus: bladder normal to palpation and uterus absent Bimanual Exam- Adnexa, other: Other (No masses detected) Assessment & Plan Assessment & Plan (1) Atrophic vaginitis: Code(s): N95.2 - Postmenopausal atrophic vaginitis Plan: Discussed with the patient the finding on pelvic exam normal vulva, and the finding of atrophic vaginitis. Options of treatment were discussed with the patient including estrogen vaginal cream versus KY jelly. All pros and cons, risks and benefits of estrogen vaginal cream treatment were discussed with the patient, the patient would like to think about it and get back to us if symptoms get worse. All questions answered, the patient verbalized understanding Coding Level of Care Code Est Pt Level 3 (27918) Diagnoses Atrophic vaginitis N95.2
== END 2022-10-19 09:38 | disposition home or self-care (01) ==
PROVIDERS: PCP Internal Medicine; Visit Provider Obstetrics & Gynecology
DX: N95.2 Postmenopausal atrophic vaginitis (principal)
CPT/HCPCS: 99213

== ENCOUNTER → 2022-10-19 09:13 | Outpatient (BNVA) | payer OTHER, SELFPAY | PROVIDERS: PCP Internal Medicine; Visit Provider Obstetrics & Gynecology | DX: N95.2 Postmenopausal atrophic vaginitis (principal) | CPT/HCPCS: 99212 ==

== ENCOUNTER 2023-01-18 08:33 | Outpatient (AMB) | payer OTHER, SELFPAY ==
[2023-01-18 08:53] VITALS: BP 120/60; PULSE 62; TEMP 36.6; O2SAT 97; BMI 23.7
--- NOTE | 2023-01-18 08:53 | AM.OFFWIN_ITS ---
Intake Vital Signs 01/18/23 08:53 Height 5 ft 4 in Weight 138 lb 4 oz BMI 23.7 BP 120/60 Blood Pressure Location Rt brachial Position Sitting Pulse 62 Pulse Source Pulse Oximeter Temp 97.8 F Temp Source Temporal Artery Scan Pulse Oximetry (%) 97 Oxygen Delivery Method Room Air Intake Visit Reasons: EP pain in lft shoulder down arm [id number] Intake Note: pt is here for c/o pain in left shoulder pain/upper back pain, going on for a few months denies injury Patient Tobacco Use Status: Former Tobacco user Allergies No Known Allergies Allergy (Unknown, Verified 01/18/23 08:56) Do you need a note to return to daycare/school/sports/work: Yes HPI HPI Comments History of Present Illness Details This is a 58-year-old female with a past medical history of hypothyroidism presenting for evaluation of left-sided shoulder and neck pain that has been ongoing for the past 3 months. Patient denies any injury or trauma preceding the onset of her symptoms but states that she has had this pain before and was treated successfully with physical therapy. Patient describes the pain as an 8/10 throbbing sensation that radiates into her left arm causing tingling in her left triceps. Patient has taken Advil 400 mg twice daily intermittently over the past 6 weeks. 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 Patient denies any overt chest pain, shortness of breath or dyspnea on exertion. [facility] Medical History History of COVID-19 Osteoarthritis Hypothyroidism Surgical History Hx of colonoscopy H/O dilation and curettage History of partial hysterectomy Family History Father Alzheimer disease Mother Lung cancer Social History Housing: House Are you a primary child care cook to a significant other at home: No Do you presently have visiting nurse or other home services: No Alcohol intake: never Patient Tobacco Use Status: Former Tobacco user Tobacco use type: Cigarette Cigarettes Per Day: 1 Years Smoked: 20 years e-Cigarette/Vaping Use: Never Used service: No Current occupational status: employed Cognitive needs: No Hearing needs: No Vision needs: No Female Reproductive History Menstrual Age of Menarche: 14 Review of Systems Const All systems reviewed & are unremarkable except as noted in HPI and below ENT Reports neck pain Card Reports as per HPI Resp Reports as per HPI Musc Reports as per HPI, Reports back pain, Reports neck pain, Reports numbness (pr oximal left upper arm), Reports radiating pain into limb and Reports tingling Skin/Breast Reports system reviewed and no additional complaints, except as documented Neuro Reports numbness (proximal left upper arm) and Reports tingling Physical Exam Vital Signs: Last Vital Signs Temp 97.8 F 01/18/23 08:53 Pulse 62 01/18/23 08:53 BP 120/60 01/18/23 08:53 Pulse Ox 97 01/18/23 08:53 Oxygen Delivery Method Room Air 01/18/23 08:53 BMI result Body Mass Index 23.7 Const General: cooperative, healthy appearing, comfortable and no acute distress Nutritional Appearance: average body habitus Orientation/consciousness: patient oriented x3 Limitations: no limitations Neck Neck: Yes normal visual inspection, Yes full ROM, No anterior neck swelling and Yes tender (left SCM; no cervical paraspinous tenderness bilaterally) Lymphatic: no lymphadenopathy noted Resp Effort & Inspection: normal respiratory effort Auscultation: clear to auscultation bilaterally Cardio Rate: regular rate Rhythm: regular rhythm Back/Spine/Pelvis Cervical Spine: cervical ROM normal Skin General skin exam: no rashes or lesions noted Neuro General: patient oriented x3 Extrem General: Yes normal to inspection and Yes full ROM Right upper extremity: full ROM and shoulder/upper arm Details: normal to inspection and normal ROM; no tenderness and no swelling Psych Appearance: grossly normal Mental Status: mental status grossly normal Insight: Good insight present (Psych) Judgement: Good judgement present (Psych) Assessment & Plan Assessment & Plan (1) Left cervical radiculopathy: Code(s): M54.12 - Radiculopathy, cervical region (2) Strain of neck muscle: Code(s): S16.1XXA - Strain of muscle, fascia and tendon at neck level, initial encounter Plan Naprosyn and Robaxin will be prescribed; the patient will follow-up with her primary care provider in 10-14 days for re-evaluation of her symptoms and a possible referral for physical therapy evaluation. Medications: New naproxen (Naprosyn) 500 mg PO BID 20 tabs 0RF methocarbamol 750 mg PO Q8H 20 tabs 0RF Coding Level of Care Code Est Pt Level 3 (07514) Diagnoses Left cervical radiculopathy M54.12 Strain of neck muscle S16.1XXA Time Spent (min) 25
== END 2023-01-18 09:48 | disposition home or self-care (01) ==
PROVIDERS: PCP Internal Medicine; Visit Provider Physician Assistant
DX: M54.12 Radiculopathy, cervical region (principal); S16.1XXA Strain of muscle, fascia and tendon at neck level, initial encounter
CPT/HCPCS: 99213

== ENCOUNTER 2023-01-24 11:30 | Outpatient (AMB) | payer OTHER, SELFPAY ==
--- NOTE | 2023-01-24 11:33 | MHC.PC.OV ---
Vital Signs 01/24/23 11:34 Height 5 ft 4 in Weight 137 lb 8 oz BMI 23.6 BP 108/70 Blood Pressure Location Rt brachial Position Sitting Pulse 70 Pulse Source Pulse Oximeter Pulse Oximetry (%) 100 Oxygen Delivery Method Room Air Intake Visit Reasons: follow up from [facility] in Allergies No Known Allergies Allergy (Unknown, Verified 01/24/23 11:38) Medication List - Last Reconciled 01/24/23 by Theresa Mack MD fluticasone propionate 50 mcg/actuation (Allergy Relief (fluticasone)) 2 sprays intranasal DAILY levothyroxine 100 mcg PO see below; Take 1 tablet Sun- Sun and 1/2 Tablet on Sunday 30 days methocarbamol 750 mg PO Q8H naproxen (Naprosyn) 500 mg PO BID Tobacco use date assessed: 01/24/23 Dental Screening Dental Screen Date: 01/24/23 Did you have a dental visit in the last 12 months?: Yes Did you have a dental problem in the last 6 months where you did not have access to dental care?: No Was dental information given to patient?: Patient has dentist HPI follow up from [facility] in HPI Details 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 [facility] Medical History History of COVID-19 Osteoarthritis Hypothyroidism Surgical History Hx of colonoscopy H/O dilation and curettage History of partial hysterectomy Family History Father Alzheimer disease Mother Lung cancer Social History Housing: House Are you a primary primary care nurse to a significant other at home: No Do you presently have visiting nurse or other home services: No Alcohol intake: never Patient Tobacco Use Status: Former Tobacco user Tobacco use type: Cigarette Cigarettes Per Day: 1 Years Smoked: 20 years e-Cigarette/Vaping Use: Never Used service: No Current occupational status: employed Cognitive needs: No Hearing needs: No Vision needs: No Female Reproductive History Menstrual Age of Menarche: 14 Questionnaire Thrive Questionnaire Date Thrive assessed: 03/07/22 AUDIT C Alcohol Use Questionnaire (AUDIT-C) 1. How often do you have a drink containing alcohol?: Never 3. How often do you have six or more drinks on one occasion?: Never Total Score: 0 Score Reviewed/Action Taken: Yes RAJAT-7 AMB Questionnaire RAJAT-7 Date RAJAT - 7 assessed: 03/07/22 Source: Developed by Drs. Iván Fuentes, Lyndsay Dias, Francis Hickey and colleagues, with an educational samantha from [email or web address]. Review of Systems Const Denies chills and Denies fever(s) ENT Denies epistaxis and Denies nasal discharge Card Denies chest pain Resp Denies chest congestion, Denies cough and Denies hemoptysis GI Denies diarrhea and Denies nausea Skin/Breast Denies rash Neuro Reports no additional complaints Psych Reports no additional complaints Endo Reports no additional complaints Physical exam (Primary Care) Vital Signs: Last Vital Signs Pulse 70 01/24/23 11:34 BP 108/70 01/24/23 11:34 Pulse Ox 100 01/24/23 11:34 Oxygen Delivery Method Room Air 01/24/23 11:34 BMI result Body Mass Index 23.6 Tobacco/Smoking Status: Tobacco use Status Tobacco use date assessed 01/24/23 01/24/23 11:38 Patient Tobacco Use Status Former Tobacco user 01/24/23 11:35 Tobacco use type Cigarette 01/24/23 11:35 e-Cigarette/Vaping Use Never Used 01/24/23 11:35 Thrive Assessment: Date of Thrive Assessment Date Thrive assessed 03/07/22 01/24/23 11:35 Const General: cooperative, comfortable and no acute distress Orientation/consciousness: patient oriented x3 HENMT Head: Yes normocephalic Eyes General: appearance normal, both eyes and all related structures Neck Neck: Yes supple Resp Effort & Inspection: normal respiratory effort, no cough and no stridor Cardio Rhythm: regular rhythm Heart sounds: S1 normal heart sound present and S2 normal heart sound present Back/Spine/Pelvis Back/spine/pelvis image: 1. Site of pain, neck is supple, able to move shoulder with some discomfort in that area Skin General skin exam: turgor normal Neuro General: patient oriented x3, tone normal and moves all extremities Extrem Right lower extremity: no edema Left lower extremity: no edema Assessment and Plan Assessment & Plan (1) Strain of left trapezius muscle: Code(s): S46.812A - Strain of other muscles, fascia and tendons at shoulder and upper arm level, left arm, initial encounter Qualifiers: Encounter type: initial encounter Qualified Code(s): S46.812A - Strain of other muscles, fascia and tendons at shoulder and upper arm level, left arm, initial encounter Plan 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 Orders: Orders PT Evaluation and Treatment Today S46.812A - Strain of other muscles, fascia and tendons at shoulder and upper arm level, left arm, initial encounter Coding Level of Care Code Est Pt Level 3 (47685) Diagnoses Strain of left trapezius muscle, initial encounter S46.812A Encounter type: initial encounter
[2023-01-24 11:34] VITALS: BP 108/70; PULSE 70; O2SAT 100; BMI 23.6
== END 2023-01-24 12:36 | disposition home or self-care (01) ==
PROVIDERS: PCP Internal Medicine; Visit Provider Internal Medicine
DX: S46.812D Strain of other muscles, fascia and tendons at shoulder and upper arm level, left arm, subsequent encounter (principal)
CPT/HCPCS: 99213

== ENCOUNTER → 2023-05-01 07:45 | Outpatient (BNV) | payer OTHER, SELFPAY | PROVIDERS: PCP Internal Medicine; Visit Provider Radiology Diagnostic Radiology | DX: Z12.31 Encounter for screening mammogram for malignant neoplasm of breast (principal) | CPT/HCPCS: 77063; 77067 ==

== ENCOUNTER 2023-05-01 07:52 | Outpatient (REF) | payer OTHER, SELFPAY | END 2023-05-01 07:53 | disposition home or self-care (01) | LOC: HO.MAMMO 07:52 | PROVIDERS: PCP Internal Medicine; Visit Provider Internal Medicine | DX: Z12.31 Encounter for screening mammogram for malignant neoplasm of breast (principal) | CPT/HCPCS: 77063; 77067 ==

== ENCOUNTER 2023-06-08 21:12 | Emergency (ER) | payer OTHER, SELFPAY ==
[2023-06-08 21:30] VITALS: BP 114/79; PULSE 64; RESP 16; TEMP 36.6; O2SAT 97; BMI 22.7
[2023-06-08 22:32] LABS: Influenza A PCR NEGATIVE (Negative); Influenza B PCR NEGATIVE (Negative); Resp Syncy Virus RNA Qual PCR NEGATIVE (Negative); SARS COV2 PCR INHOUSE NEGATIVE (Negative)
== END 2023-06-09 00:07 | disposition left against medical advice (07) ==
PROVIDERS: Emergency Provider Emergency Medicine; PCP Internal Medicine
DX: R09.81 Nasal congestion (principal)
CPT/HCPCS: 0241U; 99281; 99283

== ENCOUNTER 2023-06-09 05:39 | Emergency (ER) | payer OTHER, SELFPAY ==
[2023-06-09 05:43] VITALS: BP 122/73; PULSE 66; RESP 16; TEMP 36.2; O2SAT 100; BMI 22.9
--- NOTE | 2023-06-09 06:49 | ED_ITS ---
HPI - URI/Sore Throat General Chief Complaint: Upper Respiratory Symptoms Stated Complaint: ?Sinus infection/ LWT earlier Time Seen by Provider: 06/09/23 06:32 Source: patient Mode of arrival: ambulatory Limitations: no limitations History of Present Illness HPI Narrative: 58 yo female with history of sinusitis, history of hypothyroidism, osteoarthritis who presents to the ER for evaluation of 4 days of increased nasal congestion, headaches, sinus pressure. She also recently developed postnasal drip and an associated sore throat and dry cough. She started taking Flonase and Claritin with no improvement in her symptoms. She states her symptoms feel similar to when she has had acute sinusitis in the past. She is reports sinus pain at the top of her nose and under her eyes. She has yellow and green nasal discharge. No fevers. No known sick contacts. She reports bilateral ear fullness, no hearing loss or drainage. MD elicited complaint: nasal congestion and sinus pain Pertinent past history: sinusitis Onset (ago): day(s) (4) Consistency: progressively worsening Severity: moderate Description of mucous: yellow and green Able to tolerate fluids by mouth: Yes Exacerbating factors: supine positioning Relieving factors: nothing Associated symptoms: headache, rhinorrhea, nasal congestion, sore throat and cough Treatments prior to arrival: none Related Data Previous Rx's ?Medication ?Instructions ?Recorded levothyroxine 100 mcg tablet 100 mcg PO .COMPLEX 30 days #90 06/19/22 tabs fluticasone propionate 50 2 spray intranasal DAILY #16 grams 09/19/22 mcg/actuation nasal spray,suspension (Allergy Relief (fluticasone)) methocarbamol 750 mg tablet 750 mg PO Q8H #20 tabs 01/18/23 naproxen 500 mg tablet (Naprosyn) 500 mg PO BID #20 tabs 01/18/23 amoxicillin 875 mg-potassium 1 tab PO BID #20 tabs 06/09/23 clavulanate 125 mg tablet Allergies Allergy/AdvReac Type Severity Reaction Status Date / Time No Known Allergies Allergy Unknown Verified 06/09/23 05:46 Review of Systems Review of Systems: Yes all other systems are reviewed and are negative PMFSH Past Medical History Medical History History of COVID-19 Osteoarthritis Hypothyroidism Surgical History Hx of colonoscopy H/O dilation and curettage History of partial hysterectomy Family History Family History Father Alzheimer disease Mother Lung cancer Social History Social History Housing: House Are you a primary resident care manager rn to a significant other at home: No Do you presently have visiting nurse or other home services: No Alcohol intake: never Patient Tobacco Use Status: Former Tobacco user Tobacco use type: Cigarette Cigarettes Per Day: 1 Years Smoked: 20 years e-Cigarette/Vaping Use: Never Used Advance Directives: No Advance Directives Information Provided: Yes Do you have a plan to hurt others: No Plan service: No Current occupational status: employed Cognitive needs: No Hearing needs: No Vision needs: No Physical Exam Vital Signs: Vital Signs: Last Vital Signs Temp 97.1 F 06/09/23 05:43 Pulse 66 06/09/23 05:43 Resp 16 06/09/23 05:43 BP 122/73 06/09/23 05:43 Pulse Ox 100 06/09/23 05:43 O2 Del Method Room Air 06/09/23 05:43 BMI result Body Mass Index 22.9 Appearance: Alert. Oriented X3. No acute distress. Head: normocephalic, atraumatic. Eyes: Pupils equal, round and reactive to light. No scleral injection. ENT: Pharynx w/ mild generalized erythema. No tonsillar swelling or exudate. sinus tenderness in the ethmoid region. erythematous nasal turbinates. Neck: Normal inspection. Neck supple. no cervical lymphadenopathy CVS: Normal heart rate and rhythm. Pulses normal. Respiratory: No respiratory distress. Breath sounds normal. Skin: Skin warm and dry. Normal skin color. Normal skin turgor. No rashes. Extremities: No lower extremity edema. No joint swelling. Neuro/psych: Oriented X 3. grossly normal, nonfocal. Normal speech and cognition. Medical Decision Making Medical Decision Making MDM Narrative: 58 yo female with history of recurrent sinusitis presenting with sinus pressur e/pain, nasal congestion, headache w/ sore throat, cough and ear pressure x4 days. Symptoms are worsening. VS are stable on arrival. She is nontoxic appearing. Exam and clinical presentation are c/w actue sinusitis. No sick contact. Low suspicion for COVID or Flu. Symptoms are localized to the sinuses and upper respiratory tract. Could be viral however patient is traveling tomorrow and is worried about bacterial source and needing abx. comfortable starting empiric abx. discussed symptomatic management as well for flying. stable for d/c home. Differential Diagnosis Differential Diagnoses: The differential diagnosis associated with the presentation includes strep, covid, flu, rsv, other viral syndrome, sinusitis, bronchitis, pneumonia, seasonal allergies External Record Review External record reviewed: Outpatient record, Prior outpatient labs and Prior outpatient radiology Tests considered The following testing was considered but not selected: considered viral PCR and strep swab Prescription Management I considered prescription management with: Pain Medication and Antibiotic Chronic Conditions Patient?s care impacted by: Other (recurrent sinusitis, seasonal allergies) Critical Care Time Critical Care Time Critical Care Time: No Discharge Plan Discharge Clinical Impression: Sinusitis Patient Disposition: Home, Self-Care Instructions: Sinusitis (ED) Additional Instructions: Take the prescribed antibiotics as directed, complete the entire course and do not miss any doses Continue Flonase, Claritin and nasal saline spray Recommend Sudafed for decongestion - you have to ask the pharmacist and sign for it. Take it in the morning, it may cause insomnia if you take it at night Drink plenty of fluids If you develop new or worsening symptoms call 911 or come back to the ER for further evaluation. Prescriptions: New amoxicillin-pot clavulanate 875-125 mg tablet 1 tab PO BID Qty: 20 0RF No Action levothyroxine 100 mcg tablet 100 mcg PO .COMPLEX 30 Days Qty: 90 4RF Rx Instructions: 100 mcg PO see below; Take 1 tablet Sun- Sun and 1/2 Tablet on Sunday fluticasone propionate [Allergy Relief (fluticasone)] 50 mcg/actuation spray,suspension 2 spray intranasal DAILY Qty: 16 1RF Rx Instructions: administer into each nostril naproxen [Naprosyn] 500 mg tablet 500 mg PO BID Qty: 20 0RF methocarbamol 750 mg tablet 750 mg PO Q8H Qty: 20 0RF Discharge Date/Time: 06/09/23 06:59 Print Language: Wolof
== END 2023-06-09 06:59 | disposition home or self-care (01) ==
PROVIDERS: Emergency Provider Emergency Medicine; PCP Internal Medicine
DX: J32.9 Chronic sinusitis, unspecified (principal)
CPT/HCPCS: 99281

== ENCOUNTER 2023-06-18 07:36 | Outpatient (AMB) | payer OTHER, SELFPAY ==
--- NOTE | 2023-06-18 07:38 | A.OFFVIS_ITS ---
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 No complaints. Last Pap was negative in 2011 was negative, the patient is status post hysterectomy for fibroids in Last Mammogram was BI-RADS 1 in 05/05 Last Colonoscopy was in 06/04, the recommendation was to repeat in 10 years [facility] Medical History (Updated 06/18/23 @ 07:46 by Yohannes De La Torre MD) History of COVID-19 Osteoarthritis Hypothyroidism Surgical History (Updated 06/18/23 @ 07:46 by Yohannes De La Torre MD) History of hysterectomy Hx of colonoscopy H/O dilation and curettage Family History Father Alzheimer disease Mother Lung cancer Social History Household Members: Spouse Housing: House Are you a primary critical care specialist to a significant other at home: No Do you presently have visiting nurse or other home services: No Alcohol intake: current Alcohol intake frequency: a few times a month Patient Tobacco Use Status: Former Tobacco user Tobacco use type: Cigarette Cigarettes Per Day: 1 Years Smoked: 20 years e-Cigarette/Vaping Use: Never Used service: No Current occupational status: unemployed Sexual orientation: Straight/Heterosexual Gender identity: Female Cognitive needs: No Hearing needs: No Vision needs: No Female Reproductive History Menstrual Age of Menarche: 14 Menopause type: surgical Total pregnancies: 3 Number of Living Children: 2 Ab spontaneous: 1 Date of last pap smear: 11/29/11 Date of Mammogram: 05/01/23 Review of Systems Const All systems reviewed & are unremarkable except as noted in HPI and below Card Reports as per HPI and Reports no additional complaints Resp Reports as per HPI and Reports no additional complaints GI Reports as per HPI and Reports no additional complaints Reports as per HPI Physical Exam Vital Signs: BMI result Body Mass Index 22.7 Const General: cooperative, healthy appearing and comfortable General: Yes bladder normal to palpation External Female Exam: No lesion Speculum Exam - Vagina: normal appearance of the vagina, normal vaginal discharge and not erythematous Speculum Exam - Cervix: Cervix absent Bimanual exam- vagina & uterus: bladder normal to palpation and uterus absent Bimanual Exam- Adnexa, other: Other (No masses detected) Assessment & Plan Assessment & Plan (1) Well woman exam: Code(s): Z01.419 - Encounter for gynecological examination (general) (routine) without abnormal findings Category: Medical Plan: Co testing not indicated since the patient is status post hysterectomy for benign disease with no history of abnormal Pap smears. Counseled the patient about the recommended dietary allowance of 1200 mg of Calcium & 600 IU of vitamin D. Instructions given to patient to schedule next screening Mammogram in 05/06. The patient was instructed to perform monthly self-breast exams and schedule annual exam in a year. All questions answered and the patient verbalized understanding. Coding Level of Care Code Est Pt Prev Care 40-64y(52092) Diagnoses Well woman exam Z01.419
[2023-06-18 07:39] VITALS: BMI 22.7
== END 2023-06-18 08:14 | disposition home or self-care (01) ==
PROVIDERS: PCP Internal Medicine; Visit Provider Obstetrics & Gynecology
DX: Z01.419 Encounter for gynecological examination (general) (routine) without abnormal findings (principal)
CPT/HCPCS: 99396

== ENCOUNTER → 2023-06-18 07:36 | Outpatient (BNVA) | payer OTHER, SELFPAY | PROVIDERS: PCP Internal Medicine; Visit Provider Obstetrics & Gynecology | DX: Z01.419 Encounter for gynecological examination (general) (routine) without abnormal findings (principal) | CPT/HCPCS: 99396 ==

== ENCOUNTER 2023-07-06 08:30 | Outpatient (AMB) | payer OTHER, SELFPAY ==
--- NOTE | 2023-07-06 08:32 | A.OFFPC_ITS ---
Vital Signs 3 07/06/23 08:34 Height 5 ft 4 in Weight 130 lb 8 oz BMI 22.4 BP 110/68 Blood Pressure Location Rt brachial Position Sitting Pulse 72 Pulse Source Pulse Oximeter Pulse Oximetry (%) 98 Oxygen Delivery Method Room Air Intake Visit Reasons: PE Allergies No Known Allergies Allergy (Unknown, Verified 07/06/23 08:34) Medication List - Last Reconciled 07/06/23 by Theresa Mack MD fluticasone propionate 50 mcg/actuation (Allergy Relief (fluticasone)) 2 sprays intranasal DAILY levothyroxine 100 mcg PO see below; Take 1 tablet Sun- Sun and 1/2 Tablet on Sunday 30 days Tobacco use date assessed: 07/06/23 Dental Screening Dental Screen Date: 07/06/23 Did you have a dental visit in the last 12 months?: Yes Did you have a dental problem in the last 6 months where you did not have access to dental care?: No Was dental information given to patient?: Patient has dentist HPI PE 2 HPI0 Details Patient is a 58-year-old female came in today for physical exam Colonoscopy: At age 56, next 1 will be 10 years , and age 66 Mammogram: Up-to-date Pap smear: Patient have a history of hysterectomy because of fibroids She had appointment with Dr. De La Torre [facility] [place] this month for checkup Hypothyroidism: Patient is on levothyroxine 100 mcg, refills through PCP office Lab order placed to be done fasting Patient worked out and is complaining of pain left shoulder off and on around rotator cuff We discussed that in detail I would recommend not to do the exercises which is aggravating the problem PFSH Medical History History of COVID-19 Osteoarthritis Hypothyroidism Surgical History History of hysterectomy Hx of colonoscopy H/O dilation and curettage Family History Father Alzheimer disease Mother Lung cancer Social History Household Members: Spouse Housing: House Are you a primary primary care physician to a significant other at home: No Do you presently have visiting nurse or other home services: No Alcohol intake: current Alcohol intake frequency: a few times a month Patient Tobacco Use Status: Former Tobacco user Tobacco use type: Cigarette Cigarettes Per Day: 1 Years Smoked: 20 years e-Cigarette/Vaping Use: Never Used service: No Current occupational status: unemployed Sexual orientation: Straight/Heterosexual Gender identity: Female Cognitive needs: No Hearing needs: No Vision needs: No Female Reproductive History Menstrual Age of Menarche: 14 Questionnaire PHQ-9 Over the last 2 weeks, how often have you been bothered by any of the following problems? 1. Little interest or pleasure in doing things: not at all 2. Feeling down, depressed, or hopeless: not at all 3. Trouble falling or staying asleep, or sleeping too much: not at all 4. Feeling tired or having little energy: not at all 5. Poor appetite or overeating: not at all 6. Feeling bad about yourself - or that you are a failure or have let yourself or your family down: not at all 7. Trouble concentrating on things, such as reading the newspaper or watching television: not at all 8. Moving or speaking so slowly that other people could have noticed. Or the opposite - being so fidgety or restless that you have been moving around a lot more than usual: not at all 9. Thoughts that you would be better off or of hurting yourself in some way: not at all Total score: 0 Depression Screening Interpretation: Negative Depression Screening Done: Yes 95823 - PHQ-9 Billing: Yes Source: Developed by Drs. Iván Fuentes, Lyndsay Dias, Francis Hickey and colleagues, with an educational samantha from [employer]. Thrive Questionnaire Date Thrive assessed: 07/06/23 I am a: Patient What is your living situation today?: I have a steady place to live Within the past 12 months, did the food you bought not last and you didn't have the money to get more?: Never true Within the past 12 months, did you worry whether your food would run out before you got money to buy more?: Never true Do you have trouble paying for medicines?: No Do you have trouble getting transportation to medical appointments?: No Do you have trouble paying your heating and electricity bill?: No Do you have trouble taking care of your child, family member or friend?: No Do you have trouble with day-to-day activities such as bathing, preparing meals, shopping, managing finances, etc.?: No Are you currently unemployed and looking for a job?: No Are you interested in more education?: No Please select the resources that you would like help with: None Currently or been in a relationship where the following occur: I choose not to answer this question THRIVE Score: 0 AUDIT C Alcohol Use Questionnaire (AUDIT-C) 1. How often do you have a drink containing alcohol?: 2-4 times a month 2. How many drinks containing alcohol do you have on a typical day when you are drinking?: 1 or 2 3. How often do you have six or more drinks on one occasion?: Never Total Score: 2 Score Reviewed/Action Taken: No RAJAT-7 AMB Questionnaire RAJAT-7 Date RAJAT - 7 assessed: 07/06/23 Feeling nervous, anxious, or on edge: 0 = Not at all Not being able to stop or control worryin = Not at all Worrying too much about different things: 0 = Not at all Trouble relaxin = Not at all Being so restless that it is hard to sit still: 0 = Not at all Becoming easily annoyed or irritable: 0 = Not at all Feeling afraid as if something awful might happen: 0 = Not at all Total RAJAT-7 score (0-4 normal; 5-9 mild; 10-14 moderate; 15-21 severe): 0 Source: Developed by Drs. Iván Fuentes, Lyndsay Dias, Francis Hickey and colleagues, with an educational samantha from [employer]. RAJAT-7 Assessment Billing RAJAT-7 Assessment Tool: RAJAT-7 Assessment 83085 Review of Systems Const Denies chills, Denies fever(s) and Denies headache(s) Eyes Denies blurry vision ENT Denies headache(s), Denies nasal discharge, Denies nasal obstruction, Denies odynophagia and Denies sinus pain Card Denies chest pain at rest and Denies chest pain with activity Resp Denies cough and Denies hemoptysis GI Denies diarrhea, Denies odynophagia, Denies vomiting and Denies hematemesis Reports as per HPI Musc Denies abnormal gait Skin/Breast Reports as per HPI Neuro Denies Neuro-related abnormal movements, Denies Abnormal speech present, Denies abnormal gait, Denies headache(s) and Denies Sensory deficit (Neuro) Psych Denies mood swings and Denies paranoia Endo Reports as per HPI Danny/Lymph Reports as per HPI Aller/Immun Reports as per HPI Physical exam (Primary Care) Vital Signs: Last Vital Signs Pulse 72 07/06/23 08:34 BP 110/68 07/06/23 08:34 Pulse Ox 98 07/06/23 08:34 Oxygen Delivery Method Room Air 07/06/23 08:34 BMI result Body Mass Index 22.4 Tobacco/Smoking Status: Tobacco use Status Tobacco use date assessed 07/06/23 07/06/23 08:37 Patient Tobacco Use Status Former Tobacco user 07/06/23 08:32 Tobacco use type Cigarette 07/06/23 08:32 e-Cigarette/Vaping Use Never Used 07/06/23 08:32 PHQ-9: PHQ-9 Score PHQ-9: Total score 0 07/06/23 08:58 Depression Screening Interpretation: Negative Thrive Assessment: Date of Thrive Assessment Date Thrive assessed 07/06/23 07/06/23 08:58 Currently or been in a relationship where the following occur: I choose not to answer this question Const General: cooperative, comfortable and no acute distress Orientation/consciousness: patient oriented x3 HENMT Head: Yes normocephalic and Yes atraumatic Eyes General: appearance normal, both eyes and all related structures Pupils: Equal, round and reactive pupils present EOM: EOMs intact bilaterally Neck Neck: Yes supple and No lymphadenopathy Thyroid: Thyroid normal Lymphatic: no lymphadenopathy noted Resp Effort & Inspection: normal respiratory effort and able to speak in complete sentences Auscultation: clear to auscultation bilaterally Cardio Heart sounds: S1 normal heart sound present and S2 normal heart sound present GI Palpation (GI): Soft to palpation and nontender Auscultation: normal bowel sounds General: Yes no CVA tenderness Back/Spine/Pelvis Back: no CVA tenderness Skin General skin exam: elasticity normal and turgor normal Neuro General: patient oriented x3 and gait normal Cranial nerves: Yes Equal, round and reactive pupils present Speech: No Abnormal speech present Sensory Exam: No Sensory deficit (Neuro) Coordination: tandem gait normal and Romberg test negative Extrem General: Yes normal exam except as noted and No edema Shoulder/upper arm images: 2 1. No pain at this time Assessment and Plan Assessment & Plan (1) Other specified hypothyroidism: Code(s): E03.8 - Other specified hypothyroidism (2) Adult general medical examination: Code(s): Z00.00 - Encounter for general adult medical examination without abnormal findings (3) Osteoarthritis of hands, bilateral: Code(s): M19.041 - Primary osteoarthritis, right hand; M19.042 - Primary osteoarthritis, left hand Qualifiers: Osteoarthritis type: primary Qualified Code(s): M19.041 - Primary osteoarthritis, right hand; M19.042 - Primary osteoarthritis, left hand (4) Allergic rhinitis: Code(s): J30.9 - Allergic rhinitis, unspecified Qualifiers: Allergic rhinitis seasonality: unspecified Allergic rhinitis trigger: o ther Qualified Code(s): J30.89 - Other allergic rhinitis Plan Patient is a 58-year-old female came in today for physical exam Colonoscopy: At age 56, next 1 will be 10 years , and age 66 Mammogram: Up-to-date Pap smear: Patient have a history of hysterectomy because of fibroids She had appointment with Dr. De La Torre [facility] [place] this month for checkup Hypothyroidism: Patient is on levothyroxine 100 mcg, refills through PCP office Lab order placed to be done fasting Patient worked out and is complaining of pain left shoulder off and on around rotator cuff We discussed that in detail I would recommend not to do the exercises which is aggravating the problem Orders: Orders 2 Lipid Panel Today E03.8 - Other specified hypothyroidism, M19.041 - Primary osteoarthritis, right hand, M19.042 - Primary osteoarthritis, left hand, Z00.00 - Encounter for general adult medical examination without abnormal findings Complete Blood Count Auto Diff Today E03.8 - Other specified hypothyroidism, M19.041 - Primary osteoarthritis, right hand, M19.042 - Primary osteoarthritis, left hand, Z00.00 - Encounter for general adult medical examination without abnormal findings Comprehensive Alexis. Panel Fast Today E03.8 - Other specified hypothyroidism, M19.041 - Primary osteoarthritis, right hand, M19.042 - Primary osteoarthritis, left hand, Z00.00 - Encounter for general adult medical examination without abnormal findings TSH reflex Free T4 Today E03.8 - Other specified hypothyroidism, M19.041 - Primary osteoarthritis, right hand, M19.042 - Primary osteoarthritis, left hand, Z00.00 - Encounter for general adult medical examination without abnormal findings Medications: Refilled 2 fluticasone propionate 50 mcg/actuation (Allergy Relief (fluticasone)) administer into each nostril 2 sprays intranasal DAILY 16 grams 6RF levothyroxine 100 mcg PO see below; Take 1 tablet Sun- Sun and 1/2 Tablet on Sunday 90 tabs 1RF 30 days levothyroxine 100 mcg PO see below; Take 1 tablet Mon- Sat and 1/2 Tablet on Sunday 30 days 90 tabs 1RF fluticasone propionate 50 mcg/actuation (Allergy Relief (fluticasone)) administer into each nostril 2 sprays intranasal DAILY 16 grams 6RF Coding Level of Care Code Est Pt Prev Care 40-64y(97290) Diagnoses Other specified hypothyroidism E03.8 Adult general medical examination Z00.00 Primary osteoarthritis of both hands M19.041; M19.042 Osteoarthritis type: primary Allergic rhinitis due to other allergic trigger, unspecified seasonality J30.89 Allergic rhinitis seasonality: unspecified Allergic rhinitis trigger: other Additional Codes RAJAT-7 Assessment Billing - RAJAT-7 Assessment Tool: RAJAT-7 Assessment 73909 ([id number])
[2023-07-06 08:34] VITALS: BP 110/68; PULSE 72; O2SAT 98; BMI 22.4
== END 2023-07-06 08:54 | disposition home or self-care (01) ==
PROVIDERS: PCP Internal Medicine; Visit Provider Internal Medicine
DX: Z00.00 Encounter for general adult medical examination without abnormal findings (principal); E03.8 Other specified hypothyroidism; M19.041 Primary osteoarthritis, right hand; M19.042 Primary osteoarthritis, left hand; J30.89 Other allergic rhinitis
CPT/HCPCS: 99396

== ENCOUNTER 2023-07-12 08:37 | Outpatient (REF) | payer OTHER, SELFPAY ==
[2023-07-12 10:22] LABS: MANUAL DIFF FLAG NO
[2023-07-12 10:37] LABS: Eosinophils Absolute Auto 0.1 X10*3/uL (0.0-0.4); Eosinophils Percent Auto 1.2 % (0-4); Hematocrit 38.8 % (37.0-47.0); Hemoglobin 12.8 g/dl (12.0-16.0); Lymphocytes Absolute Auto 1.6 X10*3/uL (1.2-4.9); Lymphocytes Percent Auto 40.1 % (20-40); Mean Corpuscular Hemoglobin 30.5 pg (27.0-33.0); Mean Corpuscular Volume 92.6 fL (80.0-98.0); Mean Platelet Volume 11.3 fL (9.4-12.3); Monocytes Absolute Auto 0.3 X10*3/uL (0.1-1.2); Monocytes Percent Auto 7.4 % (2-11); Neutrophils Percent Auto 50.3 % (45-73); Platelet Count 214 X10*3/uL (160-400); Red Blood Count 4.19 X10*6/uL (4.20-5.50); Red Cell Distribution Width 12.2 % (11.0-16.0)
[2023-07-12 10:55] LABS: Alanine Aminotransferase 22 U/L (0-31); Albumin Level 4.3 g/dL (3.5-5.0); Alkaline Phosphatase 91 U/L (39-117); Anion Gap 11 (12-20); Aspartate Amino Transferase 23 U/L (5-31); Bilirubin Total 0.6 mg/dL (0.0-1.0); Blood Urea Nitrogen 10 mg/dL (9-16); Calcium 9.2 mg/dL (8.4-10.2); Carbon Dioxide 28 mmol/L (22-29); Chloride 106 mmol/L (96-108); Cholesterol 205 mg/dL (<200); Estimated Glomerular Filt Rate > 60; Glucose Fasting 97 mg/dL (60-99); HDL Cholesterol 87 mg/dL (>40); LDL Cholesterol Calculated 110 mg/dL (<100); Potassium 3.7 mmol/L (3.3-5.1); Sodium 141 mmol/L (135-145); Triglycerides 42 mg/dL (<150)
[2023-07-12 11:14] LABS: TSH reflex Free T4 1.09 uIU/mL (0.32-4.0)
== END 2023-07-12 08:38 | disposition home or self-care (01) ==
LOC: HO.HMGCLDS 08:37
PROVIDERS: PCP Internal Medicine; Visit Provider Internal Medicine
DX: Z00.00 Encounter for general adult medical examination without abnormal findings (principal); E03.8 Other specified hypothyroidism; M19.041 Primary osteoarthritis, right hand; M19.042 Primary osteoarthritis, left hand
CPT/HCPCS: 36415; 80053; 80061; 84443; 85025

== ENCOUNTER 2024-02-26 08:49 | Outpatient (REF) | payer OTHER, SELFPAY ==
--- NOTE | ~2024-02-26 | XR_ITS ---
CLINICAL HISTORY: S46.812A - Strain of other muscles, fascia and tendons at shoulder and u... 3 view left shoulder Comparison: None Findings: Bones intact. No dislocations. Glenohumeral joint space loss with subchondral sclerosis but no significant osteophyte formation. No erosions. No radiopaque foreign body. IMPRESSION: 1. Glenohumeral degenerative change. No acute fracture. This document has been electronically signed by: Lillie Hughes MD on 02/27/2024 05:45:50
--- NOTE | ~2024-02-26 | XR_ITS ---
CLINICAL HISTORY: S46.812A - Strain of other muscles, fascia and tendons at shoulder and u... 2 views cervical spine Comparison: None Findings: No prevertebral soft tissue swelling. No acute fractures or dislocation. Disc height loss at C5-6 causing straightening of the cervical lordosis. Reactive endplate changes and osteophyte formation. IMPRESSION: Degenerative change at C5-6. Consider MRI to better characterize canal and neural foraminal narrowing. This document has been electronically signed by: Lillie Hughes MD on 02/27/2024 06:16:05
[2024-02-26 13:09] LABS: MANUAL DIFF FLAG NO
[2024-02-26 13:21] LABS: Basophils Percent Auto 0.8 % (0-2); Eosinophils Absolute Auto 0.1 X10*3/uL (0.0-0.4); Eosinophils Percent Auto 1.4 % (0-4); Hematocrit 38.3 % (37.0-47.0); Hemoglobin 12.6 g/dl (12.0-16.0); Imm Gran Abs Auto 0.01 X10*3/uL (0.00-0.03); Imm Gran Pct Auto 0.3 % (0.0-0.4); Lymphocytes Absolute Auto 1.4 X10*3/uL (1.2-4.9); Lymphocytes Percent Auto 38.4 % (20-40); Mean Corpuscular HGB Conc 32.9 g/dl (31.0-35.0); Mean Corpuscular Hemoglobin 30.8 pg (27.0-33.0); Mean Corpuscular Volume 93.6 fL (80.0-98.0); Mean Platelet Volume 10.9 fL (9.4-12.3); Monocytes Absolute Auto 0.3 X10*3/uL (0.1-1.2); Monocytes Percent Auto 7.6 % (2-11); Neutrophils Absolute Auto 1.9 x10*3/uL (2.0-8.3); Neutrophils Percent Auto 51.5 % (45-73); Platelet Count 232 X10*3/uL (160-400); Red Blood Count 4.09 X10*6/uL (4.20-5.50); Red Cell Distribution Width 12.2 % (11.0-16.0); White Blood Count 3.7 X10*3/uL (4.8-10.8)
[2024-02-26 13:54] LABS: Albumin Level 4.3 g/dL (3.5-5.0); Alkaline Phosphatase 91 U/L (39-117); Anion Gap 7 (12-20); Aspartate Amino Transferase 33 U/L (5-31); Bilirubin Total 0.4 mg/dL (0.0-1.0); Blood Urea Nitrogen 13 mg/dL (9-16); Calcium 8.7 mg/dL (8.4-10.2); Carbon Dioxide 30 mmol/L (22-29); Chloride 109 mmol/L (96-108); Estimated Glomerular Filt Rate > 60; Glucose Random 94 mg/dL (60-115); Potassium 4.1 mmol/L (3.3-5.1); Sodium 142 mmol/L (135-145); Total Protein 6.9 g/dL (6.5-8.0)
[2024-02-26 13:56] LABS: Ferritin 66 ng/mL (10-250); TSH reflex Free T4 1.64 uIU/mL (0.32-4.0)
[2024-02-26 14:11] LABS: Folate > 20.0 ng/mL (> or = 4.0); Vitamin B12 422 pg/mL (200-900)
[2024-02-26 14:17] LABS: Alanine Aminotransferase 31 U/L (0-31)
[2024-02-27 11:03] LABS: LDL Cholesterol Direct 103 mg/dL (<100)
[2024-03-03 15:24] LABS: Vitamin D 25-OH, D2 6 ng/mL; Vitamin D 25-OH, D3 30 ng/mL; Vitamin D 25-OH, Total 36 ng/mL (30-100)
== END 2024-02-26 08:50 | disposition home or self-care (01) ==
LOC: HO.HMGCX 08:49
PROVIDERS: PCP Internal Medicine; Visit Provider Internal Medicine
DX: E03.8 Other specified hypothyroidism (principal); L65.9 Nonscarring hair loss, unspecified; S46.812A Strain of other muscles, fascia and tendons at shoulder and upper arm level, left arm, initial encounter; M54.12 Radiculopathy, cervical region; J30.89 Other allergic rhinitis; G89.29 Other chronic pain; M25.512 Pain in left shoulder; Z91.09 Other allergy status, other than to drugs and biological substances
CPT/HCPCS: 36415; 72040; 73030; 80053; 82306; 82607; 82728; 82746; 83721; 84443; 85025; 96127; 99212

== ENCOUNTER 2024-02-26 08:49 | Outpatient (AMB) | payer OTHER, SELFPAY ==
[2024-02-26 08:52] VITALS: BP 124/68; PULSE 86; O2SAT 96; BMI 22.2
--- NOTE | 2024-02-26 08:52 | A.OFFPC_ITS ---
Vital Signs 02/26/24 08:52 Height 5 ft 4 in Weight 129 lb 6 oz BMI 22.2 BP 124/68 Blood Pressure Location Rt brachial Position Sitting Pulse 86 Pulse Source Pulse Oximeter Pulse Oximetry (%) 96 Oxygen Delivery Method Room Air Intake Visit Reasons: 6M F/U reschedule from 01/14 Allergies No Known Allergies Allergy (Unknown, Verified 02/26/24 08:53) Medication List - Last Reconciled 02/26/24 by Theresa Mack MD fluticasone propionate 50 mcg/actuation (Allergy Relief (fluticasone)) 2 sprays intranasal DAILY levothyroxine 100 mcg PO see below; Take 1 tablet Sun- Sun and 1/2 Tablet on Sunday 30 days Tobacco use date assessed: 02/26/24 Dental Screening Dental Screen Date: 02/26/24 Did you have a dental visit in the last 12 months?: Yes Did you have a dental problem in the last 6 months where you did not have access to dental care?: No Was dental information given to patient?: Patient has dentist HPI 6M F/U reschedule from 01/14 HPI Details - The patient is a 59-year-old female pr esenting with concerns related to thyroid management, hair condition, and musculoskeletal pain, specifically in the left shoulder and cervical area. - The thyroid disorder is under routine follow-up, with no current issues reported at this visit. - The patient has significant hair thinn ing and brittleness, which may be linked to thyroid health or hormonal changes post-menopause. - Menopausal history involves a hysterec richard performed in 2000 due to fibroids, and subsequent unilateral oophorectomy in 2012 for a potentially cancerous lesion, indicating a complex gynecological history impacting current symptoms. - A history of cervical radiculopathy, w hich improves with physical exercise but is worsened by repetitive arm movements at work, is noted. - The patient has notable left shoulder pain which is chronic affecting daily movement and comfort, exacerbated by certain sleeping positions. - Arthritic changes have been observed i n various joints; especially small joints of hands, these are suspect, given the osteoarthritic symptoms, with considerations of familial arthritic conditions. Plan For thyroid disorder, I will continue monitoring the patient's current status and manage as usual. To address concerns about hair thinning and brittleness, I will recommend laboratory tests to assess for nutritional deficiencies, specifically examining vitamin and iron levels, and suggest avoiding excessive chemical treatments. To address musculoskeletal issues, including potential rotator cuff involvement and cervical pain, imaging such as an x-ray is advised, alongside ibuprofen for possible arthritis-related pain. I emphasize safe exercise practices as they have shown to relieve symptoms in this case. Avoidance of over-exertion is imperative, especially in work-related activities that exacerbate symptoms. Patient Instructions - Continue taking thyroid medication as advised and follow up for labs to check vitamin and iron levels. - Use only minimal hair treatments and a void harsh chemicals on hair. - Take ibuprofen as needed for pain reli ef, per prescribed instructions. - Continue safe and moderate exercise, n oting any exacerbations of pain from over-exertion. - Monitor symptoms, and contact [facility] re provider if problems such as hair loss or pain worsen. - Confirm and attend scheduled July ow-up appointment. Review of Systems - Skin: Reports hair thinning and increa sed brittleness. - Musculoskeletal: Reports left shoulder pain and cervical discomfort; denies recent trauma to area. - Neurological: Denies new neurological symptoms aside from prior cervical radiculopathy. - General: No fever no chills - Neurological: No headaches no dizziness - Ear nose throat: No sore throat no hearing difficulty no ear pain - Cardiovascular: No syncope, no chest pain, no palpitations - Gastrointestinal: No nausea vomiting or diarrhea - Endocrine: No polyuria polydipsia no heat intolerance - Genitourinary: No dysuria , no blood in urine Physical Exam General: No acute distress HEENT: No acute findings Neck: Supple Respiratory system: Able to talk in full sentences, no audible wheeze cardiovascular: S1-S2 regular in rate and rhythm Gastrointestinal: No pain Extremities: Left shoulder pain, possibly related to rotator cuff and trapezius muscle stress [employer]: Alert awake oriented x3 motor sensory intact Skin: Normal turgor, hair noted to be brittle and falling out [facility] Medical History History of COVID-19 Osteoarthritis Hypothyroidism Surgical History History of hysterectomy Hx of colonoscopy H/O dilation and curettage Family History Father Alzheimer disease Mother Lung cancer Social History Household Members: Spouse Housing: House Are you a primary cardiac care unit nurse to a significant other at home: No Do you presently have visiting nurse or other home services: No Alcohol intake: current Alcohol intake frequency: a few times a month Patient Tobacco Use Status: Former Tobacco user Tobacco use type: Cigarette Cigarettes Per Day: 1 Years Smoked: 20 years e-Cigarette/Vaping Use: Never Used service: No Current occupational status: unemployed Sexual orientation: Straight/Heterosexual Gender identity: Female Cognitive needs: No Hearing needs: No Vision needs: No Female Reproductive History Menstrual Age of Menarche: 14 Questionnaire PHQ-9 Over the last 2 weeks, how often have you been bothered by any of the following problems? 1. Little interest or pleasure in doing things: not at all 2. Feeling down, depressed, or hopeless: not at all 3. Trouble falling or staying asleep, or sleeping too much: not at all 4. Feeling tired or having little energy: not at all 5. Poor appetite or overeating: not at all 6. Feeling bad about yourself - or that you are a failure or have let yourself or your family down: not at all 7. Trouble concentrating on things, such as reading the newspaper or watching television: not at all 8. Moving or speaking so slowly that other people could have noticed. Or the opposite - being so fidgety or restless that you have been moving around a lot more than usual: not at all 9. Thoughts that you would be better off or of hurting yourself in some way: not at all Total score: 0 Depression Screening Interpretation: Negative Depression Screening Done: Yes [id number] - PHQ-9 Billing: Yes Source: Developed by Drs. Iván Fuentes, Lyndsay Dias, Francis Hickey and colleagues, with an educational samantha from [employer]. Thrive Questionnaire Date Thrive assessed: 02/26/24 I am a: Patient What is your living situation today?: I choose not to answer this question Within the past 12 months, did the food you bought not last and you didn't have the money to get more?: Never true Within the past 12 months, did you worry whether your food would run out before you got money to buy more?: Never true Do you have trouble paying for medicines?: No Do you have trouble getting transportation to medical appointments?: No Do you have trouble paying your heating and electricity bill?: No Do you have trouble taking care of your child, family member or friend?: No Do you have trouble with day-to-day activities such as bathing, preparing meals, shopping, managing finances, etc.?: No Are you currently unemployed and looking for a job?: No Are you interested in more education?: No Please select the resources that you would like help with: None Currently or been in a relationship where the following occur: No concerns reported THRIVE Score: 0 AUDIT C Alcohol Use Questionnaire (AUDIT-C) 1. How often do you have a drink containing alcohol?: 2-4 times a month 2. How many drinks containing alcohol do you have on a typical day when you are drinking?: 1 or 2 3. How often do you have six or more drinks on one occasion?: Less than monthly Total Score: 3 Score Reviewed/Action Taken: Yes RAJAT-7 AMB Questionnaire RAJAT-7 Date RAJAT - 7 assessed: 02/26/24 Feeling nervous, anxious, or on edge: 0 = Not at all Not being able to stop or control worryin = Not at all Worrying too much about different things: 0 = Not at all Trouble relaxin = Not at all Being so restless that it is hard to sit still: 0 = Not at all Becoming easily annoyed or irritable: 0 = Not at all Feeling afraid as if something awful might happen: 0 = Not at all Total RAJAT-7 score (0-4 normal; 5-9 mild; 10-14 moderate; 15-21 severe): 0 Source: Developed by Drs. Iván Fuentes, Lyndsay Dias, Francis Hickey and colleagues, with an educational samantha from [employer]. RAJAT-7 Assessment Billing RAJAT-7 Assessment Tool: RAJAT-7 Assessment 02736 Physical exam (Primary Care) Vital Signs: Last Vital Signs Pulse 86 02/26/24 08:52 BP 124/68 02/26/24 08:52 Pulse Ox 96 02/26/24 08:52 Oxygen Delivery Method Room Air 02/26/24 08:52 BMI result Body Mass Index 22.2 Tobacco/Smoking Status: Tobacco use Status Tobacco use date assessed 02/26/24 02/26/24 08:54 Patient Tobacco Use Status Former Tobacco user 02/26/24 08:54 Tobacco use type Cigarette 02/26/24 08:54 e-Cigarette/Vaping Use Never Used 02/26/24 08:54 PHQ-9: PHQ-9 Score PHQ-9: Total score 0 02/26/24 08:59 Depression Screening Interpretation: Negative Thrive Assessment: Date of Thrive Assessment Date Thrive assessed 02/26/24 02/26/24 08:59 Currently or been in a relationship where the following occur: No concerns reported Coding Level of Care Code Est Pt Level 4 (86334) Complex EM visit Add On G2211 Diagnoses Other specified hypothyroidism E03.8 Falling hair L65.9 Environmental allergies Z91.09 Strain of left trapezius muscle, initial encounter S46.812A Encounter type: initial encounter Left cervical radiculopathy M54.12 Allergic rhinitis due to other allergic trigger, unspecified seasonality J30.89 Allergic rhinitis seasonality: unspecified Allergic rhinitis trigger: other Chronic left shoulder pain M25.512; G89.29 Chronicity: chronic Additional Codes RAJAT-7 Assessment Billing - RAJAT-7 Assessment Tool: RAJAT-7 Assessment 27268 ([id number]) PHQ-9 - 04059 - PHQ-9 Billing: Yes ([id number]) Assessment & Plan Assessment & Plan (1) Other specified hypothyroidism: Code(s): E03.8 - Other specified hypothyroidism Category: Medical (2) Falling hair: Code(s): L65.9 - Nonscarring hair loss, unspecified Category: Medical (3) Environmental allergies: Code(s): Z91.09 - Other allergy status, other than to drugs and biological substances Category: Medical (4) Strain of left trapezius muscle: Code(s): S46.812A - Strain of other muscles, fascia and tendons at shoulder and upper arm level, left arm, initial encounter Category: Medical Qualifiers: Encounter type: initial encounter Qualified Code(s): S46.812A - Strain of other muscles, fascia and tendons at shoulder and upper arm level, left arm, initial encounter (5) Left cervical radiculopathy: Code(s): M54.12 - Radiculopathy, cervical region Category: Medical (6) Allergic rhinitis: Code(s): J30.9 - Allergic rhinitis, unspecified Category: Medical Qualifiers: Allergic rhinitis seasonality: unspecified Allergic rhinitis trigger: other Qualified Code(s): J30.89 - Other allergic rhinitis (7) Shoulder pain, left: Code(s): M25.512 - Pain in left shoulder Category: Medical Qualifiers: Chronicity: chronic Qualified Code(s): M25.512 - Pain in left shoulder; G89.29 - Other chronic pain Plan - The patient is a 59-year-old female presenting with concerns related to thyroid management, hair condition, and musculoskeletal pain, specifically in the left shoulder and cervical area. - The thyroid disorder is under routine follow-up, with no current issues reported at this visit. - The patient has significant hair thinning and brittleness, which may be linked to thyroid health or hormonal changes post-menopause. - Menopausal history involves a hysterectomy performed in 2000 due to fibroids, and subsequent unilateral oophorectomy in 2012 for a potentially cancerous lesion, indicating a complex gynecological history impacting current symptoms. - A history of cervical radiculopathy, which improves with physical exercise but is worsened by repetitive arm movements at work, is noted. - The patient has notable left shoulder pain which is chronic affecting daily movement and comfort, exacerbated by certain sleeping positions. - Arthritic changes have been observed in various joints; especially small joints of hands, these are suspect, given the osteoarthritic symptoms, with considerations of familial arthritic conditions. Plan For thyroid disorder, I will continue monitoring the patient's current status and manage as usual. To address concerns about hair thinning and brittleness, I will recommend laboratory tests to assess for nutritional deficiencies, specifically examining vitamin and iron levels, and suggest avoiding excessive chemical treatments. To address musculoskeletal issues, including potential rotator cuff involvement and cervical pain, imaging such as an x-ray is advised, alongside ibuprofen for possible arthritis-related pain. I emphasize safe exercise practices as they have shown to relieve symptoms in this case. Avoidance of over-exertion is imperative, especially in work-related activities that exacerbate symptoms. Patient Instructions - Continue taking thyroid medication as advised and follow up for labs to check vitamin and iron levels. - Use only minimal hair treatments and avoid harsh chemicals on hair. - Take ibuprofen as needed for pain relief, per prescribed instructions. - Continue safe and moderate exercise, noting any exacerbations of pain from over-exertion. - Monitor symptoms, and contact healthcare provider if problems such as hair loss or pain worsen. - Confirm and attend scheduled July follow-up appointment. Orders: Orders Comprehensive Met. Panel Today E03.8 - Other specified hypothyroidism, J30.89 - Other allergic rhinitis, L65.9 - Nonscarring hair loss, unspecified, M54.12 - Radiculopathy, cervical region, Z91.09 - Other allergy status, other than to drugs and biological substances Vitamin B12 Today E03.8 - Other specified hypothyroidism, J30.89 - Other allergic rhinitis, L65.9 - Nonscarring hair loss, unspecified, M54.12 - Radiculopathy, cervical region, Z91.09 - Other allergy status, other than to drugs and biological substances TSH reflex Free T4 Today E03.8 - Other specified hypothyroidism, J30.89 - Other allergic rhinitis, L65.9 - Nonscarring hair loss, unspecified, M54.12 - Radicul opathy, cervical region, Z91.09 - Other allergy status, other than to drugs and biological substances Complete Blood Count Auto Diff Today E03.8 - Other specified hypothyroidism, J30.89 - Other allergic rhinitis, L65.9 - Nonscarring hair loss, unspecified, M54.12 - Radiculopathy, cervical region, Z91.09 - Other allergy status, other than to drugs and biological substances LDL Cholesterol Direct Today E03.8 - Other specified hypothyroidism, J30.89 - Other allergic rhinitis, L65.9 - Nonscarring hair loss, unspecified, M54.12 - Radiculopathy, cervical region, Z91.09 - Other allergy status, other than to drugs and biological substances Vitamin D 25-OH (D2 and D3) Today E03.8 - Other specified hypothyroidism, J30.8 9 - Other allergic rhinitis, L65.9 - Nonscarring hair loss, unspecified, M54.12 - Radiculopathy, cervical region, Z91.09 - Other allergy status, other than to drugs and biological substances Ferritin Today E03.8 - Other specified hypothyroidism, J30.89 - Other allergic rhinitis, L65.9 - Nonscarring hair loss, unspecified, M54.12 - Radiculopathy, cervical region, Z91.09 - Other allergy status, other than to drugs and biological substances Folate Today E03.8 - Other specified hypothyroidism, J30.89 - Other allergic rhinitis, L65.9 - Nonscarring hair loss, unspecified, M54.12 - Radiculopathy, cervical region, Z91.09 - Other allergy status, other than to drugs and biological substances XR cervical spine 2V Today M25.512 - Pain in left shoulder, M54.12 - Radiculopathy, cervical region, S46.812A - Strain of other muscles, fascia and tendons at shoulder and upper arm level, left arm, initial encounter XR shoulder LT min 2V Today M25.512 - Pain in left shoulder, M54.12 - Radiculopathy, cervical region, S46.812A - Strain of other muscles, fascia and tendons at shoulder and upper arm level, left arm, initial encounter
== END 2024-02-26 10:01 | disposition home or self-care (01) ==
PROVIDERS: PCP Internal Medicine; Visit Provider Internal Medicine
DX: E03.8 Other specified hypothyroidism (principal); L65.9 Nonscarring hair loss, unspecified; Z91.09 Other allergy status, other than to drugs and biological substances; S46.812A Strain of other muscles, fascia and tendons at shoulder and upper arm level, left arm, initial encounter; M54.12 Radiculopathy, cervical region; J30.89 Other allergic rhinitis; M25.512 Pain in left shoulder; G89.29 Other chronic pain

== ENCOUNTER → 2024-02-26 09:22 | Outpatient (BNV) | payer OTHER, SELFPAY | PROVIDERS: PCP Internal Medicine; Visit Provider Radiology Diagnostic Radiology | DX: M19.012 Primary osteoarthritis, left shoulder (principal); M50.322 Other cervical disc degeneration at C5-C6 level | CPT/HCPCS: 72040; 73030 ==

== ENCOUNTER 2024-02-28 08:23 | Outpatient (AMB) | payer OTHER, SELFPAY ==
--- NOTE | 2024-02-28 08:27 | MHC.PC.OV ---
Intake Visit Reasons: Discuss x-ray report Allergies No Known Allergies Allergy (Unknown, Verified 02/28/24 08:28) Medication List - Last Reconciled 02/28/24 by Theresa Mack MD fluticasone propionate 50 mcg/actuation (Allergy Relief (fluticasone)) 2 sprays intranasal DAILY levothyroxine 100 mcg PO see below; Take 1 tablet Sun- Sun and 1/2 Tablet on Sunday 30 days Tobacco use date assessed: 02/28/24 Dental Screening Dental Screen Date: 02/28/24 Did you have a dental visit in the last 12 months?: Yes Did you have a dental problem in the last 6 months where you did not have access to dental care?: No Was dental information given to patient?: Patient has dentist HPI Discuss x-ray report HPI Details Telehealth Attestation This documentation accurately reflects the information discussed during the telehealth consultation held via telephone, in compliance with telehealth guidelines. This is a tele health medical visit - The patient is a 59-year-old female presenting with neck and shoulder pain. - Shoulder pain localized around the shoulder blade area with associated glenohumeral joint osteoarthritis identified on shoulder X-ray. - Describes the shoulder pain as soreness, achiness, and stiffness; the pain is currently manageable. - Neck issues identified as arthritic changes at C5-C6 confirmed by radiographic studies; however, the patient reports no current neck pain or weakness. - Denies any significant progression in neck symptoms and reports the absence of weakness on the left side. Plan I reviewed the findings of glenohumeral joint osteoarthritis and cervical spondylosis with the patient. The patient was advised that the current management plan, given the absence of debilitating symptoms, involves referral to a painter and decorator apprentice to explore conservative management strategies. An MRI of the cervical spine will be considered contingent upon worsening symptoms or potential surgical intervention in the future. The plan includes monitoring symptoms and pursuing medical intervention as clinically indicated by specialist evaluation. [facility] Medical History History of COVID-19 Osteoarthritis Hypothyroidism Surgical History History of hysterectomy Hx of colonoscopy H/O dilation and curettage Family History Father Alzheimer disease Mother Lung cancer Social History Household Members: Spouse Housing: House Are you a primary medicare compliance auditor to a significant other at home: No Do you presently have visiting nurse or other home services: No Alcohol intake: current Alcohol intake frequency: a few times a month Patient Tobacco Use Status: Former Tobacco user Tobacco use type: Cigarette Cigarettes Per Day: 1 Years Smoked: 20 years e-Cigarette/Vaping Use: Never Used service: No Current occupational status: unemployed Sexual orientation: Straight/Heterosexual Gender identity: Female Cognitive needs: No Hearing needs: No Vision needs: No Female Reproductive History Menstrual Age of Menarche: 14 Questionnaire Thrive Questionnaire Date Thrive assessed: 02/26/24 AUDIT C Alcohol Use Questionnaire (AUDIT-C) 1. How often do you have a drink containing alcohol?: 2-4 times a month 2. How many drinks containing alcohol do you have on a typical day when you are drinking?: 1 or 2 3. How often do you have six or more drinks on one occasion?: Less than monthly Total Score: 3 Score Reviewed/Action Taken: Yes RAJAT-7 AMB Questionnaire RAJAT-7 Date RAJAT - 7 assessed: 02/26/24 Source: Developed by Drs. Iván Fuentes, Lyndsay Dias, Francis Hickey and colleagues, with an educational samantha from [employer]. Review of Systems Const Denies chills and Denies fever(s) ENT Denies epistaxis and Denies nasal discharge Card Denies chest pain Resp Denies chest congestion, Denies cough and Denies hemoptysis GI Denies diarrhea and Denies nausea Skin/Breast Denies rash Neuro Reports no additional complaints Psych Reports no additional complaints Endo Reports no additional complaints Physical exam (Primary Care) Tobacco/Smoking Status: Tobacco use Status Tobacco use date assessed 02/28/24 02/28/24 08:28 Patient Tobacco Use Status Former Tobacco user 02/28/24 08:28 Tobacco use type Cigarette 02/28/24 08:28 e-Cigarette/Vaping Use Never Used 02/28/24 08:28 Thrive Assessment: Date of Thrive Assessment Date Thrive assessed 02/26/24 02/28/24 08:28 Telehealth Telehealth Telehealth Platform: [facility] Location of provider rendering services: practice address Location of patient: address on file Patient Identification confirmed using: Name, : Yes Telehealth method: voice only Patient verbally consented to treatment: Yes Patient verbally consented to billing insurance company: Yes Patient informed of any privacy concerns related to visit: Yes Coding Level of Care Code Tele Est Pt Level 3 (00839) Diagnoses Chronic left shoulder pain M25.512; G89.29 Chronicity: chronic Glenohumeral arthritis M19.019 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 Spinal osteoarthritis complication: without myelopathy or radiculopathy Assessment & Plan Assessment & Plan (1) Shoulder pain, left: Code(s): M25.512 - Pain in left shoulder Category: Medical Qualifiers: Chronicity: chronic Qualified Code(s): M25.512 - Pain in left shoulder; G89.29 - Other chronic pain (2) Glenohumeral arthritis: Code(s): M19.019 - Primary osteoarthritis, unspecified shoulder Category: Medical (3) DJD (degenerative joint disease), cervical: Code(s): M47.812 - Spondylosis without myelopathy or radiculopathy, cervical region Category: Medical Qualifiers: Spinal osteoarthritis complication: without myelopathy or radiculopathy Qualified Code(s): M47.812 - Spondylosis without myelopathy or radiculopathy, cervical region Plan - The patient is a 59-year-old female presenting with neck and shoulder pain. - Shoulder pain localized around the shoulder blade area with associated glenohumeral joint osteoarthritis identified on shoulder X-ray. - Describes the shoulder pain as soreness, achiness, and stiffness; the pain is currently manageable. - Neck issues identified as arthritic changes at C5-C6 confirmed by radiographic studies; however, the patient reports no current neck pain or weakness. - Denies any significant progression in neck symptoms and reports the absence of weakness on the left side. Plan I reviewed the findings of glenohumeral joint osteoarthritis and cervical spondylosis with the patient. The patient was advised that the current management plan, given the absence of debilitating symptoms, involves referral to a painter and decorator apprentice to explore conservative management strategies. An MRI of the cervical spine will be considered contingent upon worsening symptoms or potential surgical intervention in the future. The plan includes monitoring symptoms and pursuing medical intervention as clinically indicated by specialist evaluation. Orders: Referrals Pain Management Referral G89.29 - Other chronic pain, M19.019 - Primary osteoarthritis, unspecified shoulder, M25.512 - Pain in left shoulder, M47.812 - Spondylosis without myelopathy or radiculopathy, cervical region
== END 2024-02-28 09:05 | disposition home or self-care (01) ==
LOC: HO.HMCC 08:23
PROVIDERS: PCP Internal Medicine; Visit Provider Internal Medicine
DX: M25.512 Pain in left shoulder (principal); G89.29 Other chronic pain; M19.019 Primary osteoarthritis, unspecified shoulder; M47.812 Spondylosis without myelopathy or radiculopathy, cervical region

== ENCOUNTER 2024-03-03 11:32 | Outpatient (AMB) | payer OTHER, SELFPAY ==
[2024-03-03 11:41] VITALS: BP 151/86; PULSE 76; O2SAT 99; BMI 22.1
--- NOTE | 2024-03-03 11:41 | MHC.OFFVIS ---
Vital Signs 03/03/24 11:41 Height 5 ft 4 in Weight 129 lb BMI 22.1 BP 151/86 H Blood Pressure Location Rt brachial Position Sitting Pulse 76 Pulse Source Pulse Oximeter Pulse Oximetry (%) 99 Oxygen Delivery Method Room Air Intake Visit Reasons: Pain in left shoulder Fructose Loader Required: No Allergies No Known Allergies Allergy (Unknown, Verified 03/03/24 11:42) Medication List - Last Reconciled 03/03/24 by Kylie Chinchilla, LACE STRIPPER fluticasone propionate 50 mcg/actuation (Allergy Relief (fluticasone)) 2 sprays intranasal DAILY levothyroxine 100 mcg PO see below; Take 1 tablet Sun- Sun and 1/2 Tablet on Sunday 30 days HPI Comments Details: Karol is very pleasant 59 years old female who presents in my office with complains on pain in the left shoulder on the posterior surface of the shoulder in the area of the shoulder blade. She reports that she is suffering from this problem for 1 year. She does not know the cause of this pain. She reports her pain in terms of tissue damage today is throbbing, shooting, stabbing, sharp, pinching, pulling, tingling, hurting, tiring, sickening sensation. She can not sleep normally because of her pain she is able to do activities of daily living she can take care of herself but she can not function normally. 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 She reports that heat application make her pain better. Also takes Aleve 200 mg 2 pills twice a day to help her pain. She never had physical therapy. She had x-ray of the shoulder results of which dictated as below. She never had any injections. Her past medical history is significant for hypothyroidism she is taking levothyroxine. Her past surgical history significant for hysterectomy in 2000 ovariectomy in 2012 and couple of D& C's. Social history: Working individual, stopped smoking cigarettes 7 years ago, drinks 1-2 glasses of alcohol every 2 weeks, drink 1 cup of coffee a day and denies recreational drugs. [facility], LAT[facility] Medical History History of COVID-19 Osteoarthritis Hypothyroidism Surgical History History of hysterectomy Hx of colonoscopy H/O dilation and curettage Family History Father Alzheimer disease Mother Lung cancer Social History Household Members: Spouse Housing: House Are you a primary special needs caregiver to a significant other at home: No Do you presently have visiting nurse or other home services: No Alcohol intake: current Alcohol intake frequency: a few times a month Patient Tobacco Use Status: Former Tobacco user Tobacco use type: Cigarette Cigarettes Per Day: 1 Years Smoked: 20 years e-Cigarette/Vaping Use: Never Used service: No Current occupational status: unemployed Sexual orientation: Straight/Heterosexual Gender identity: Female Cognitive needs: No Hearing needs: No Vision needs: No Female Reproductive History Menstrual Age of Menarche: 14 Review of Systems Const Denies chills and Denies fever(s) ENT Reports Normal hearing present, Denies epistaxis and Denies nasal discharge Card Denies chest pain Resp Denies chest congestion, Denies cough and Denies hemoptysis GI Denies diarrhea and Denies nausea Skin/Breast Denies rash Neuro Reports no additional complaints, Reports Normal hearing present, Denies Abnormal speech present, Denies confusion and Denies Sensory deficit (Neuro) Psych Reports no additional complaints and Denies confusion Endo Reports no additional complaints Physical Exam Vital Signs: Last Vital Signs Pulse 76 03/03/24 11:41 BP 151/86 H 03/03/24 11:41 Pulse Ox 99 03/03/24 11:41 Oxygen Delivery Method Room Air 03/03/24 11:41 BMI result Body Mass Index 22.1 Const General: no acute distress; No confusion Nutritional Appearance: well nourished and thin Orientation/consciousness: patient oriented x3 and No confusion Limitations: no limitations Eyes General: appearance normal, both eyes and all related structures Pupils: Equal, round and reactive pupils present EOM: EOMs intact bilaterally Neck Neck: Yes full ROM Chest Chest palpation & inspection: normal inspection of the chest Resp Effort & Inspection: normal respiratory effort, able to speak in complete sentences, normal respiratory pattern, no audible wheezes and no cough Cardio Jugular venous distension: no JVD GI Inspection: Yes normal to inspection Neuro General: patient oriented x3, gait normal and No confusion Cranial nerves: Yes CN's II-XII intact bilaterally, Yes Equal, round and reactive pupils present, Yes Normal hearing present and Yes Ability to bilaterally elevate shoulders present Speech: No Abnormal speech present Gait exam (Neuro): Normal gait present Motor exam (neuro): 5/5 motor strength present throughout Sensory Exam: No Sensory deficit (Neuro) Extrem Other: Full range of motion of the left shoulder however the range of motion is painful. General: No pedal edema Psych Speech and movement: Normal speech and movement present Affect: normal affect Attitude: cooperative Thought process: Normal thought process present Thought content: Normal thought content present Insight: Good insight present (Psych) Judgement: Good judgement present (Psych) Results Reviewed Results Reviewed: 02/27/2024 x-ray left shoulder. 3 view left shoulder Comparison: None Findings: Bones intact. No dislocations. Glenohumeral joint space loss with subchondral sclerosis but no significant osteophyte formation. No erosions. No radiopaque foreign body. IMPRESSION: 1. Glenohumeral degenerative change. No acute fracture. Assessment & Plan Assessment & Plan (1) Shoulder pain, left: Code(s): M25.512 - Pain in left shoulder Category: Medical Qualifiers: Chronicity: chronic Qualified Code(s): M25.512 - Pain in left shoulder; G89.29 - Other chronic pain (2) Glenohumeral arthritis: Code(s): M19.019 - Primary osteoarthritis, unspecified shoulder Category: Medical Plan Several options were given to the patient today. Risks and benefits of steroids injections were explained to the patient. Risks and benefits of PRP were explained to the patient. Physical therapy was explained to the patient. Patient wants to try physical therapy alone. If this will not be helpful for her pain PRP versus steroid injections could be tried. Also sprint PNS in posterior suprascapular nerve positioned could be tried as well. To do this procedure we need to do diagnostic suprascapular nerve block on the left. This will be working patient will be a good candidate for sprint PNS however patient was explained about mobility and activities limitations and it's impact on her job. Orders: Orders PT Evaluation and Treatment Today G89.29 - Other chronic pain, M19.019 - Primary osteoarthritis, unspecified shoulder, M25.512 - Pain in left shoulder Coding Level of Care Code New Pt Level 3 (72512) Diagnoses Chronic left shoulder pain M25.512; G89.29 Chronicity: chronic Glenohumeral arthritis M19.019
== END 2024-03-03 12:01 | disposition home or self-care (01) ==
PROVIDERS: PCP Internal Medicine; Referring Provider Internal Medicine; Visit Provider Anesthesiology
DX: M25.512 Pain in left shoulder (principal); G89.29 Other chronic pain; M19.019 Primary osteoarthritis, unspecified shoulder
CPT/HCPCS: 99203

== ENCOUNTER → 2024-03-03 11:32 | Outpatient (BNVA) | payer OTHER, SELFPAY | PROVIDERS: PCP Internal Medicine; Referring Provider Internal Medicine; Visit Provider Anesthesiology | DX: M25.512 Pain in left shoulder (principal); M19.019 Primary osteoarthritis, unspecified shoulder; G89.29 Other chronic pain | CPT/HCPCS: 99202 ==

== ENCOUNTER 2024-05-08 08:21 | Outpatient (AMB) | payer OTHER, SELFPAY ==
--- NOTE | 2024-05-08 08:23 | AM.OFFWIN_ITS ---
Intake Vital Signs 05/08/24 08:24 Weight 130 lb BP 128/70 Blood Pressure Location Rt brachial Position Sitting Pulse 65 Pulse Source Pulse Oximeter Pulse Oximetry (%) 98 Oxygen Delivery Method Room Air Intake Visit Reasons: EP ? sinus infection Intake Note: Patient here for sinus infection, sneezing, swollen glands, ear popping and headache that started yesterday. Patient Tobacco Use Status: Former Tobacco user Allergies No Known Allergies Allergy (Unknown, Verified 05/08/24 08:25) Do you need a note to return to daycare/school/sports/work: No HPI HPI Comments History of Present Illness Details History - The patient is a 59-year-old female pr esenting with recurrent sinusitis. - History indicates frequent sinus infec tions, with the current recurrence featuring postnasal drip, sneezing, and headaches x 2days. - She reports experiencing the sensation of popping in the ears and attributes her cough to postnasal drip. - Absence of significant respiratory sym ptoms such as shortness of breath, wheezing, or fever is noted. 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 - Past treatments include amoxicillin us e for prior episodes and recent saline spray for symptomatic relief. Physical Exam General: Cooperative, healthy appearing, comfortable and no acute distress Orientation/consciousness: Patient oriented x3 Limitations: No limitations Head: Normal to inspection Ears: Hearing grossly normal bilaterally, external ears normal and TM's normal bilaterally with scant fluid Nose: Normal external nose present, Normal nares present and No nasal discharge present Face and sinus: Normal facial exam and sinuses tender Mouth: Normal oral and palatal mucosa present and moist mucous membranes Throat: Yes tonsils normal, Yes uvula midline. Posterior oropharynx erythema Eyes: Appearance normal, both eyes and all related structures Neck: Normal visual inspection Respiratory: Normal respiratory effort, able to speak in complete sentences, no respiratory distress, not tachypneic, no tripod positioning and no use of accessory muscles Skin: No rashes or lesions noted Neuro: Patient oriented x3 Extremities: Normal to inspection and Yes no clubbing, cyanosis or edema PFSH Medical History History of COVID-19 Osteoarthritis Hypothyroidism Surgical History History of hysterectomy Hx of colonoscopy H/O dilation and curettage Family History Father Alzheimer disease Mother Lung cancer Social History Household Members: Spouse Housing: House Are you a primary care transitions nurse to a significant other at home: No Do you presently have visiting nurse or other home services: No Alcohol intake: current Alcohol intake frequency: a few times a month Patient Tobacco Use Status: Former Tobacco user Tobacco use type: Cigarette Cigarettes Per Day: 1 Years Smoked: 20 years e-Cigarette/Vaping Use: Never Used service: No Current occupational status: unemployed Sexual orientation: Straight/Heterosexual Gender identity: Female Cognitive needs: No Hearing needs: No Vision needs: No Female Reproductive History Menstrual Age of Menarche: 14 Review of Systems Const All systems reviewed & are unremarkable except as noted in HPI and below Physical Exam Vital Signs: Last Vital Signs Pulse 65 05/08/24 08:24 BP 128/70 05/08/24 08:24 Pulse Ox 98 05/08/24 08:24 Oxygen Delivery Method Room Air 05/08/24 08:24 Assessment & Plan Assessment & Plan (1) Acute bacterial sinusitis: Code(s): J01.90 - Acute sinusitis, unspecified; B96.89 - Other specified bacterial agents as the cause of diseases classified elsewhere Plan: VSS, pt well appearing and PE remarkable for sinus ttp. The patient has been diagnosed with acute sinusitis based on the clinical presentation and history. Amoxicillin will be prescribed to target a potential bacterial cause, accompanied by Flonase to reduce mucosal inflammation and promote drainage. The patient should administer Flonase twice daily and saline spray to maintain nasal hydration. Benadryl may be used at bedtime if needed for congestion management. 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 Patient was informed and verbally consented to the use of an ambient scribe for clinic note documentation during this visit Medications: New amoxicillin 875 mg PO Q12H 14 tabs 0RF Coding Level of Care Code Est Pt Level 3 (49279) Diagnoses Acute bacterial sinusitis J01.90; B96.89
[2024-05-08 08:24] VITALS: BP 128/70; PULSE 65; O2SAT 98
--- OUTSIDE RECORDS SUMMARY | 2024-05-08 08:44 | XMS_ITS | Encounter Summary ---
Author Organization [employer] Address [address] [place] [address] [address] [place] [address] Care Team Providers Care Pressroom Foreman Name Role Phone Unavailable Primary Care Provider Unavailabl e Reason for Visit * Reason Comments Routine Cleaning Dental Exam Encounter Details Date Type Department Care Team ([facility] st Contact Info) Description 05/05/2024 8:00 AM EDT Office Visit [facility] [address] [place] [address] Ivania Rodriguez Full coverage crown needed for root canal-treated tooth (Primary Dx); Full coverage crown needed for tooth at risk for fracture Social History Tobacco Use Types Packs/Day Years Used Date Smoking Tobacco: Never Passive Smoke Exposure: Never Smokeless Tobacco: Never Alcohol Use Standard Drinks/Week Comments Yes 2 (1 standard drink = 0.6 oz pur e alcohol) Comments Unknown Sex and Gender Information Value Date Recorded Sex Assigned at Female 12/12/2021 10:16 AM EDT Legal Sex Female 10:16 AM EDT Gender Identity Female 03/22/2022 12:50 PM EST Sexual Orientation Straight 04/24/2022 8: 14 AM EDT documented as of this encounter Last Filed Vital Signs Vital Sign Reading Time Taken Comments Blood Pressure 118/76 05/05/2024 8:08 AM EDT Pulse - - Temperature - - Respiratory Rate - - Oxygen Saturation - - Inhaled Oxygen Concentration - - Weight - - Height - - Body Mass Index - - documented in this encounter Progress Notes * Ivania Rodriguez - 05/05/2024 8:00 AM EDT Patient ID: Karol Quarles is a 59 y.o. female. Time Out: Timeout Date: 05/05/24, Timeout Time: 808 Location: [facility] Tooth: Maxilla and Mandible Procedure: Exam and Prophylaxis Verified the above with patient, physician assistant psychiatry, and provider. Confirmed via patient's chart, intraorally and by radiographs. Urogynecology Physician: not applicable Medical Hx: Vitals: Blood pressure 118/76. Medications, Med Hx reviewed with patient and updated in chart. Treatment Provided Dental procedures in this visit D1110 - PROPHYLAXIS - ADULT (Completed) Service provider: Ivania Al provider: Amarjit Lawrence DMD D9450 - CASE PRESENTATION, DETAILED AND EXTENSIVE TREATMENT PLANNING (Completed) Service provider: Ivania Rodriguez [place] provider: Amarjit Lawrence DMD D1330 - ORAL HYGIENE INSTRUCTIONS (Completed) Service provider: Ivania Al provider: Amarjit Lawrence DMD Instruments Used: Ultrasonic Scalers, Hand Scalers, and Prophy angle Fluoride: N/A Oral Cancer Screening: No lesions Head/Neck Exam: No Lesions Calculus: Light and Localized Plaque: Light and Generalized Stain: Light and Localized Bleeding: None Gingiva: Healthy and Recession- localized OH: Good Perio Chart: Not Completed- Completed on 10/02/2023. Dental exam done by Dr. Lawrence. Oral hygiene instructions provided to patient including brushing technique and flossing. Recommendations: [place] two times daily, modified putnam technique, Floss daily, Electric toothbrush, Soft bristle toothbrush, [place] Tongue, Anti-sensitivity toothpaste Recall Frequency: 6 mo NV: [place] Prep #10 Hygienist: Ivania Rodriguez RDH * Amarjit Lawrence DMD - 05/05/2024 8:00 AM EDT Dental procedures in this visit D1110 - PROPHYLAXIS - ADULT (Completed) Service provider: Ivania Al provider: Amarjit Lawrence DMD D9450 - CASE PRESENTATION, DETAILED AND EXTENSIVE TREATMENT PLANNING (Completed) Service provider: Ivania Al provider: Amarjit Lawrence DMD D1330 - ORAL HYGIENE INSTRUCTIONS (Completed) Service provider: Ivania Al provider: Amarjit Lawrence DMD D0120 - PERIODIC ORAL EVALUATION - ESTABLISHED PATIENT (Completed) Service provider: Amarjit Lawrence DMD Billing provider: Amarjit Lawrence DMD Patient ID: Karol Quarles is a 59 y.o. female. Time Out: Timeout Date: 05/05/24, Timeout Time: 0809 Location: [facility] Tooth: all Procedure: Exam Verified the above with patient, physician assistant psychiatry, and provider. Confirmed via patient's chart, intraorally and by radiographs. Urogynecology Physician: not applicable Chief Complaint Patient presents with Routine Cleaning Dental Exam Medical Hx: Vitals: Blood pressure 118/76. Past Medical History: Diagnosis Date Disease of thyroid gland Medications: Outpatient Encounter Medications as of 05/05/2024 Medication Sig Dispense Refill ibuprofen 800 MG tablet Take 1 tablet by mouth every 8 (eight) hours. levothyroxine (Synthroid, Levoxyl) 100 MCG tablet Take 1 tablet by mouth at bed time. fluticasone (Flonase Allergy Relief) 50 MCG/ACT nasal spray spray 1 spray by intranasal route everyday in each nostril (Patient not taking: Reported on 05/05/2024) naproxen (Naprosyn) 500 MG tablet Take 500 mg by mouth 2 times daily. (Patient not taking: Reportedon 05/05/2024) No facility-administered encounter medications on file as of 05/05/2024. Objective HPI: pt notes she fractured #10 recently. Denies pain at this time Soft Tissue Exam No findings documented this visit Head and Neck Exam: all structures examined Details: no swellings, ulcerations or lymphadenopathies OCS: negative Dental Exam No changes in planned treatment Note staining on existing buccal uatsdin #4 - advise polishing to see if it removes. If not, new micah advised #10 - crown planned, mesial fracture. Recommend starting here #30 previously planned for crown due to large uatsdin size and fracture lines Informed pt of findings who expressed understanding, all questions answered. Radiographic Interpretation: Associated radiographs for today's visit were reviewed and finding(s) were discussed with the patient. Findings include: see above Hard Tissue Exam: Fractured restorations/teeth Perio Dx: Localized Chronic Periodontitis Stage: I Grade: B Reference tooth chart for additional findings. Oral Cancer Risk: Low Risk Oral Hygiene Instructions: [place] two times daily, modified putnam technique, Floss daily, Electric toothbrush, Soft bristle toothbrush, [place] Tongue Caries Risk Assessment: Medium- one risk factor Assessment/Plan #10 crown (check #8-D and maltese #4 buccal) #30 crown Maintenance and recare Patient tolerated procedure well, all questions answered and expressed understanding. Dismissed in good condition. NV: #10 crown prep (check #8-D and maltese #4 buccal) Clinic Coordinator: Ivania Rodriguez Dentist: Amarjit Lawrence DMD documented in this encounter Plan of Treatment Scheduled Orders Name Type Priority Associated Diagnoses Orde r Schedule 10 10 CROWN PREP Dental Routine 1 Occurr ences starting 05/05/2024 documented as of this encounter Procedures Procedure Name Priority Date/Time Associated Diagnosis Comments PROPHYLAXIS - ADULT Routine 05/05/2024 8 :00 AM EDT Full coverage crown needed for root canal-treated tooth Full coverage crown needed for tooth at risk for fracture PERIODIC ORAL EVALUATION - ESTABLISHED PATIENT Routine 05/05/2024 8:00 AM EDT Full coverage crown needed for root canal-treated tooth Full coverage crown needed for tooth at risk for fracture ORAL HYGIENE INSTRUCTIONS Routine 05/05/2024 8:00 AM EDT Full coverage crown needed for root canal-treated tooth Full coverage crown needed for tooth at risk for fracture CASE PRESENTATION, DETAILED AND EXTENSIVE TREATMENT PLANNING Routine 05/05/2024 8:00 AM EDT Full coverage crown needed for root canal-treated tooth Full coverage crown needed for tooth at risk for fracture documented in this encounter Visit Diagnoses Diagnosis Full coverage crown needed for root canal-treated tooth- Primary Full coverage crown needed for tooth at risk for fracture documented in this encounter
--- OUTSIDE RECORDS SUMMARY | 2024-05-08 08:44 | XMS_ITS | Encounter Summary ---
Author Organization [employer] Address [address] [place] [address] [address] [place] [address] Care Team Providers Care Director Of Retail Analytics Name Role Phone Unavailable Primary Care Provider Unavailabl e Encounter Details Date Type Department Care Team (Latest Contact Info) Description 09/10/2018 Abstract [facility] CONVERSIONS Dental, Provider, DDS Social History Tobacco Use Types Packs/Day Years Used Date Smoking Tobacco: Never Assessed Comments Unknown Sex and Gender Information Value Date Recorded Sex Assigned at Female 12/12/2021 10:16 AM EDT Legal Sex Female 10:16 AM EDT Gender Identity Female 03/22/2022 12:50 PM EST Sexual Orientation Straight 04/24/2022 8: 14 AM EDT documented as of this encounter Plan of Treatment Not on file documented as of this encounter Visit Diagnoses Not on filedocumented in this encounter
--- OUTSIDE RECORDS SUMMARY | 2024-05-08 08:44 | XMS_ITS | Clinical Summary ---
Author Organization [employer] Address [address] [place] [address] [address] [place] [address] Care Team Providers Care Parts Inspector Name Role Phone Unavailable Primary Care Provider Unavailabl e Allergies No known active allergies Medications fluticasone (Flonase Allergy Relief) 50 MCG/ACT nasal spray spray 1 spray by intranasal route every day in each nostril 6 Active ibuprofen 800 MG tablet Take 1 tablet by mouth every 8 (eight) hours. 5 Active levothyroxine (Synthroid, Levoxyl) 100 MCG tablet Take 1 tablet by mouth at bed time. 9 Active naproxen (Naprosyn) 500 MG tablet Take 500 mg by mouth 2 times daily. 3 Active Active Problems Problem Noted Date Diagnosed Date Hypothyroidism 03/18/2010 Encounters Date Type Department Care Team Description 05/05/2024 8:00 AM EDT Office Visit [facility]ULT [facility] [address] [place] [address] Ivania Rodriguez Full coverage crown needed for root canal-treated tooth (Primary Dx); Full coverage crown needed for tooth at risk for fracture 02/28/2024 Orders Only [facility] [address] [place] [address] Amarjit Lawrence DMD from Last 3 Months Social History Tobacco Use Types Packs/Day Years Used Date Smoking Tobacco: Never Passive Smoke Exposure: Never Smokeless Tobacco: Never Tobacco Cessation:Counseling Given: Not Answered Alcohol Use Standard Drinks/Week Comments Yes 2 (1 standard drink = 0.6 oz pur e alcohol) Comments Unknown Sex and Gender Information Value Date Recorded Sex Assigned at Female 12/12/2021 10:16 AM EDT Legal Sex Female 10:16 AM EDT Gender Identity Female 03/22/2022 12:50 PM EST Sexual Orientation Straight 04/24/2022 8: 14 AM EDT Last Filed Vital Signs Vital Sign Reading Time Taken Comments Blood Pressure 118/76 05/05/2024 8:08 AM EDT Pulse 65 10/02/2023 8:09 AM EDT Temperature - - Respiratory Rate - - Oxygen Saturation - - Inhaled Oxygen Concentration - - Weight - - Height - - Body Mass Index - - Plan of Treatment Health Maintenance Due Date Last Done Comments CT Colonography 1967 Colonoscopy 1967 Colorectal Cancer Screening 1967 Depression Screening 1967 FIT DNA/Cologuard 1967 FIT 1967 FOBT 1967 HIV Screening 1967 SDOH Screening 1967 Sigmoidoscopy 1967 Alcohol/Substance Use Screening 1979 Hepatitis C Screening 1985 Hepatitis B Vaccines (1 of 3 - 19+ 3-dose series) 1986 Pap Smear 01/11/1988 Cervical Cancer Screening 1997 HPV/Cotest 1997 Mammogram 2007 Pneumococcal Vaccine: 50+ Years (1 of 1 - PCV) 2017 Zoster Vaccines (1 of 2) 2017 COVID-19 Vaccine (3 - season) 2023 12/13/2020, 11/22/2020 Influenza Vaccine (#1) 2023 Dental X-Ray: Bitewings 10/02/2024 10/02/19, 01/22/2023, 04/24/2022 Dental Oral Exam 11/06/2024 05/05/2024, , 01/22/2023, Additional history exists Dental Prophylaxis 11/06/2024 05/05/2024, 0 10/02/2023, 01/22/2023, Additional history exists Tobacco Screening 05/05/2025 05/05/2024 DTaP/Tdap/Td Vaccines (2 - Td or Tdap) 07/06/2025 07/07/2015 Dental X-Ray: Full Mouth 10/02/2026 10/02/2023 RSV Patients and Patients Aged 60 years or older (1 - 1-dose 75+ series) 2042 HIB Vaccines Aged Out No longer eligi ble based on patient's age to complete this topic HPV Vaccines Aged Out No longer eligi ble based on patient's age to complete this topic Hepatitis A Vaccines Aged Out No long er eligible based on patient's age to complete this topic IPV Vaccines Aged Out No longer eligi ble based on patient's age to complete this topic Meningococcal Vaccine Aged Out No tray margareth eligible based on patient's age to complete this topic RSV under 20 months Aged Out No longe r eligible based on patient's age to complete this topic Rotavirus Vaccines Aged Out No longer eligible based on patient's age to complete this topic Procedures Procedure Name Priority Date/Time Associated Diagnosis Comments PERIODIC ORAL EVALUATION - ESTABLISHED PATIENT Routine [...] needed for tooth at risk for fracture PROPHYLAXIS - ADULT Routine 05/05/2024 8 :00 AM EDT Full coverage crown needed for root canal-treated tooth Full coverage crown needed for tooth at risk for fracture INTRAORAL - COMPLETE SERIES OF RADIOGRAPHIC IMAGES Routine 10/02/2023 8:00 AM EDT Full coverage crown needed for root canal-treated tooth from Last 3 Months or Most Recently Relevant to Health Maintenance Insurance [facility] MEDICAID STAND ADULT
--- OUTSIDE RECORDS SUMMARY | 2024-05-08 08:44 | XMS_ITS | Encounter Summary ---
Author Organization [employer] Address [address] [place] [address] [address] [place] [address] Care Team Providers Care Therapist Rrt Name Role Phone Unavailable Primary Care Provider Unavailabl e Encounter Details Date Type Department Care Team (Latest Contact Info) Description 03/05/2020 Abstract [facility] CONVERSIONS Dental, Provider, DDS Social History Tobacco [...]
== END 2024-05-08 08:40 | disposition home or self-care (01) ==
PROVIDERS: PCP Internal Medicine; Visit Provider Physician Assistant
DX: J01.90 Acute sinusitis, unspecified (principal); B96.89 Other specified bacterial agents as the cause of diseases classified elsewhere

== ENCOUNTER → 2024-05-08 08:21 | Outpatient (BNVA) | payer OTHER, SELFPAY | PROVIDERS: PCP Internal Medicine; Visit Provider Physician Assistant | DX: J01.90 Acute sinusitis, unspecified (principal); B96.89 Other specified bacterial agents as the cause of diseases classified elsewhere | CPT/HCPCS: 99212 ==

== ENCOUNTER 2024-07-29 10:32 | Outpatient (AMB) | payer OTHER, SELFPAY ==
--- NOTE | 2024-07-29 10:34 | A.OFFPC_ITS ---
Vital Signs 07/29/24 10:35 Height 5 ft 4 in Weight 127 lb 8 oz BMI 21.9 BP 114/70 Blood Pressure Location Rt brachial Position Sitting Pulse 58 Pulse Source Palpation Temp 98.0 F Temp Source Oral Intake Visit Reasons: PE Allergies No Known Allergies Allergy (Unknown, Verified 07/29/24 10:37) Medication List - Last Reconciled 07/29/24 by Theersa Mack MD fluticasone propionate 50 mcg/actuation (Allergy Relief (fluticasone)) 2 sprays intranasal DAILY levothyroxine 100 mcg PO see below; Take 1 tablet Sun- Sun and 1/2 Tablet on Sunday 30 days Tobacco use date assessed: 07/29/24 Dental Screening Dental Screen Date: 07/29/24 Did you have a dental visit in the last 12 months?: Yes Did you have a dental problem in the last 6 months where you did not have access to dental care?: No Was dental information given to patient?: Patient has dentist HPI PE HPI Details Physical exam - The patient is a 59-year-old female pr esenting for a wellness examination. - She reports ongoing management of hypo thyroidism, treated with levothyroxine. - The patient describes experiencing yudy al allergy symptoms, for which she uses Flonase nasal spray, with positive control of symptoms. - The patient experiences osteoarthritis in the left shoulder, with occasional mild symptoms. 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 - No recent significant changes in sympt oms were noted, and she expresses overall good health with minor aches attributed to aging. Medical History: - Hypothyroidism - Allergic Rhinitis - Hyperplastic Mucosal Polyps - Osteoarthritis of the Left Shoulder Surgical History: - Colonoscopy at age 56 Social History: - No current tobacco use. - No indication of alcohol or other subs tance use mentioned. - Discussed regular self-care in managin g allergies. Health Maintenance - Recent laboratory tests from Februaryicated normal hemoglobin, electrolytes, kidney function, and blood sugar levels. Liver enzymes were stable. - Cholesterol: LDL measured at 103 mg/dL . - Vitamin B12 and Vitamin D levels are w ithin normal limits. - Mammogram scheduled for September 08, wit h an OBGYN appointment on September 22. - Previous colonoscopy in 2022 returned diagnosis of hyperplastic mucosal polyps; next colonoscopy recommended in 7 to 10 years. [place] [facility] - Dr. Wolf (OBGYN) - Dr. Shea (Advertising Traffic Manager) Medications - Levothyroxine: 100 mcg, one tablet Sun to Sunday and half on Sunday, for hypothyroidism. - Flonase nasal spray, for allergic rhin itis. Diagnostic results - February lab results: Normal hemoglobin , electrolytes, kidney function, and blood glucose. Stable liver enzymes. - Cholesterol: LDL at 103. - Colonoscopy in 2022: Hyperplastic muco [place] polyps. Patient Instructions - Continue current management with Flona se and inquire about refills as needed. - Transition to [id number]-fdkat-vji use of F lonase if nasal bleeding occurs. - Return for a physical examination in . - Schedule and attend mammogram appointm ent on September 08. Review of Systems - General: No fever no chills - Neurological: No headaches no dizzin ess - Ear nose throat: No sore throat no hearing difficulty no ear pain - Cardiovascular: No syncope, no chest pain, no palpitations - Gastrointestinal: No nausea vomiting or diarrhea - Endocrine: No polyuria polydipsia no heat intolerance - Genitourinary: No dysuria - Skin: No new complaints Physical Exam General: Cooperative, healthy appearing, comfortable, no acute distress Orientation: Patient oriented x3 Limitations: None Head: Normal to inspection Ears: Within normal limit visually Nose: Normal external nose present Face and sinus: Normal facial exam Eyes: Appearance normal, extraocular movement intact pupils reactive Neck: Normal visual inspection and supple Respiratory: Normal respiratory effort and able to speak in complete sentences. Clear to auscultation, no stridor Cardiovascular: S1 and S2 RRR GI: Normal to inspection. Soft to palpation and nontender Skin: Turgor normal, no acute findings. Neuro: Patient oriented x3, motor sensory intact, balance intact, tandem pass Extremities: Normal to inspection. Range of motion intact [facility] Medical History History of COVID-19 Osteoarthritis Hypothyroidism Surgical History History of hysterectomy Hx of colonoscopy H/O dilation and curettage Family History Father Alzheimer disease Mother Lung cancer Social History Household Members: Spouse Housing: House Are you a primary client care manager to a significant other at home: No Do you presently have visiting nurse or other home services: No Alcohol intake: current Alcohol intake frequency: a few times a month Patient Tobacco Use Status: Former Tobacco user Tobacco use type: Cigarette Cigarettes Per Day: 1 Years Smoked: 20 years e-Cigarette/Vaping Use: Never Used service: No Current occupational status: unemployed Sexual orientation: Straight/Heterosexual Gender identity: Female Cognitive needs: No Hearing needs: No Vision needs: No Female Reproductive History Menstrual Age of Menarche: 14 Questionnaire Thrive Questionnaire Date Thrive assessed: 02/26/24 I am a: Patient What is your living situation today?: I have a steady place to live Within the past 12 months, did the food you bought not last and you didn't have the money to get more?: Never true Within the past 12 months, did you worry whether your food would run out before you got money to buy more?: Never true Do you have trouble paying for medicines?: No Do you have trouble getting transportation to medical appointments?: No Do you have trouble paying your heating and electricity bill?: No Do you have trouble taking care of your child, family member or friend?: No Do you have trouble with day-to-day activities such as bathing, preparing meals, shopping, managing finances, etc.?: No Are you currently unemployed and looking for a job?: No Are you interested in more education?: No Please select the resources that you would like help with: None Currently or been in a relationship where the following occur: No concerns reported THRIVE Score: 0 RAJAT-7 AMB Questionnaire RAJAT-7 Date RAJAT - 7 assessed: 02/26/24 Source: Developed by Drs. Iván Fuentes, Lyndsay Dias, Francis Hickey and colleagues, with an educational samantha from [employer]. Physical exam (Primary Care) Vital Signs: Last Vital Signs Temp 98.0 F 07/29/24 10:35 Pulse 58 07/29/24 10:35 BP 114/70 07/29/24 10:35 BMI result Body Mass Index 21.9 Tobacco/Smoking Status: Tobacco use Status Tobacco use date assessed 07/29/24 07/29/24 10:42 Patient Tobacco Use Status Former Tobacco user 07/29/24 10:42 Tobacco use type Cigarette 07/29/24 10:42 e-Cigarette/Vaping Use Never Used 07/29/24 10:42 Thrive Assessment: Date of Thrive Assessment Date Thrive assessed 02/26/24 07/29/24 10:42 Currently or been in a relationship where the following occur: No concerns reported Coding Level of Care Code Est Pt Level 3 (60621) Est Pt Prev Care 40-64y(16928) Diagnoses Encounter for general adult medical examination with abnormal findings Z00.01 Other specified hypothyroidism E03.8 Environmental allergies Z91.09 Allergic rhinitis due to other allergic trigger, unspecified seasonality J30.89 Allergic rhinitis seasonality: unspecified Allergic rhinitis trigger: other Assessment & Plan Assessment & Plan (1) Encounter for general adult medical examination with abnormal findings: Code(s): Z00.01 - Encounter for general adult medical examination with abnormal findings Category: Medical (2) Other specified hypothyroidism: Code(s): E03.8 - Other specified hypothyroidism Category: Medical (3) Environmental allergies: Code(s): Z91.09 - Other allergy status, other than to drugs and biological substances Category: Medical (4) Allergic rhinitis: Code(s): J30.9 - Allergic rhinitis, unspecified Category: Medical Qualifiers: Allergic rhinitis seasonality: unspecified Allergic rhinitis trigger: other Qualified Code(s): J30.89 - Other allergic rhinitis Plan Physical exam - The patient is a 59-year-old female presenting for a wellness examination. - She reports ongoing management of hypothyroidism, treated with levothyroxine. - The patient describes experiencing nasal allergy symptoms, for which she uses Flonase nasal spray, with positive control of symptoms. - The patient experiences osteoarthritis in the left shoulder, with occasional mild symptoms. 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 - No recent significant changes in symptoms were noted, and she expresses overall good health with minor aches attributed to aging. Medical History: - Hypothyroidism - Allergic Rhinitis - Hyperplastic Mucosal Polyps - Osteoarthritis of the Left Shoulder Surgical History: - Colonoscopy at age 56 Social History: - No current tobacco use. - No indication of alcohol or other substance use mentioned. - Discussed regular self-care in managing allergies. Health Maintenance - Recent laboratory tests from February indicated normal hemoglobin, electrolytes, kidney function, and blood sugar levels. Liver enzymes were stable. - Cholesterol: LDL measured at 103 mg/dL. - Vitamin B12 and Vitamin D levels are within normal limits. - Mammogram scheduled for September 08, with an OBGYN appointment on September 22. - Previous colonoscopy in 2022 returned diagnosis of hyperplastic mucosal poly ps; next colonoscopy recommended in 7 to 10 years. [place] [facility] - Dr. Wolf (OBGYN) - Dr. Shea (Advertising Traffic Manager) Medications - Levothyroxine: 100 mcg, one tablet Sunday to Sunday and half on Sunday, for hypothyroidism. - Flonase nasal spray, for allergic rhinitis. Diagnostic results - February lab results: Normal hemoglobin, electrolytes, kidney function, and blood glucose. Stable liver enzymes. - Cholesterol: LDL at 103. - Colonoscopy in 2022: Hyperplastic mucosal polyps. Patient Instructions - Continue current management with Flonase and inquire about refills as needed. - Transition to exdfu-puqsw-goa use of Flonase if nasal bleeding occurs. - Return for a physical examination in one year. - Schedule and attend mammogram appointment on September 08. Orders: Orders Comprehensive [place]. Panel Fast Today E03.8 - Other specified hypothyroidism, J30.89 - Other allergic rhinitis, Z00.01 - Encounter for general adult medical examination with abnormal findings, Z91.09 - Other allergy status, other than to drugs and biological substances Lipid Panel Today E03.8 - Other specified hypothyroidism, J30.89 - Other allergic rhinitis, Z00.01 - Encounter for general adult medical examination with abnormal findings, Z91.09 - Other allergy status, other than to drugs and biological substances Complete Blood Count Auto Diff Today E03.8 - Other specified hypothyroidism, J30.89 - Other allergic rhinitis, Z00.01 - Encounter for general adult medical examination with abnormal findings, Z91.09 - Other allergy status, other than to drugs and biological substances TSH reflex Free T4 Today E03.8 - Other specified hypothyroidism, J30.89 - Other allergic rhinitis, Z00.01 - Encounter for general adult medical examination with abnormal findings, Z91.09 - Other allergy status, other than to drugs and biological substances Medications: Refilled levothyroxine 100 mcg PO see below; Take 1 tablet Sun- Sun and 1/2 Tablet on Sunday 30 days 90 tabs 3RF
[2024-07-29 10:35] VITALS: BP 114/70; PULSE 58; TEMP 36.7; BMI 21.9
--- OUTSIDE RECORDS SUMMARY | 2024-07-29 12:03 | XMS_ITS | Encounter Summary ---
Author Organization [employer] Address [address] [place] [address] [address] [place] [address] Care Team Providers Care Pug Mill Operator Helper Name Role Phone Unavailable Primary Care Provider Unavailabl e Encounter Details Date Type Department Care Team (Latest Contact Info) Description 09/10/2018 Abstract [facility] CONVERSIONS Dental, Provider, DDS Social History Tobacco [...]
== END 2024-07-29 10:55 | disposition home or self-care (01) ==
LOC: HO.HMCC 10:34
PROVIDERS: PCP Internal Medicine; Visit Provider Internal Medicine
DX: Z00.00 Encounter for general adult medical examination without abnormal findings (principal); E03.8 Other specified hypothyroidism; Z91.09 Other allergy status, other than to drugs and biological substances; J30.89 Other allergic rhinitis

== ENCOUNTER → 2024-07-29 10:32 | Outpatient (BNVA) | payer OTHER, SELFPAY | PROVIDERS: PCP Internal Medicine; Visit Provider Internal Medicine | DX: Z00.01 Encounter for general adult medical examination with abnormal findings (principal); E03.8 Other specified hypothyroidism; J30.89 Other allergic rhinitis; Z91.09 Other allergy status, other than to drugs and biological substances | CPT/HCPCS: 99396 ==

== ENCOUNTER → 2024-09-08 09:00 | Outpatient (BNV) | payer OTHER, SELFPAY | PROVIDERS: PCP Internal Medicine; Visit Provider Internal Medicine | DX: Z12.31 Encounter for screening mammogram for malignant neoplasm of breast (principal) | CPT/HCPCS: 77063; 77067 ==

== ENCOUNTER 2024-09-08 09:01 | Outpatient (REF) | payer OTHER, SELFPAY ==
--- OUTSIDE RECORDS SUMMARY | 2024-09-08 09:36 | XMS_ITS | Encounter Summary ---
Author Organization [employer] Address [address] [place] [address] [address] [place] [address] Care Team Providers Care Salon Stylist Name Role Phone Unavailable Primary Care Provider Unavailabl e Encounter Details Date Type Department Care Team (Latest Contact Info) Description 09/10/2018 Abstract [facility] CONVERSIONS Dental, Provider, DDS Social History Tobacco [...]
== END 2024-09-08 09:02 | disposition home or self-care (01) ==
LOC: HO.MAMMO 09:01
PROVIDERS: PCP Internal Medicine; Visit Provider Internal Medicine
DX: Z12.31 Encounter for screening mammogram for malignant neoplasm of breast (principal)
CPT/HCPCS: 77063; 77067

== ENCOUNTER 2024-09-23 08:00 | Outpatient (REF) | payer OTHER, SELFPAY ==
--- NOTE | ~2024-09-23 | MM_ITS ---
EXAMINATION: MM DIAGNOSTIC DIGITAL BREAST TOMOSYNTHESIS, RIGHT CLINICAL INFORMATION: Callback from screening for right breast asymmetry in the lateral breast on posterior depth on the CC view. COMPARISON: September 08, 2024 TECHNIQUE: Digital breast tomosynthesis is performed in craniocaudal view along with computer-aided detection (CAD). Synthesized 2D images are generated from the tomosynthesis. Spot compression tomosynthesis images were also obtained. FINDINGS: BREAST COMPOSITION: The breasts are heterogeneously dense, which may obscure small masses (ACR BI-RADS breast composition Category c). RIGHT BREAST: Previously suggested asymmetry in the lateral breast on the CC view does not persist on today's additional images and most likely represented overlapping fibroglandular breast tissue. MM/MM tomosynthesis added views R IMPRESSION: RIGHT BREAST: Negative, no mammographic evidence of malignancy. Normal interval follow-up is recommended in 12 months. ASSESSMENT: BI-RADS 1 - Negative RECOMMENDATION: 1 year F/U Results were provided to the patient at time of visit by the technologist. This patient's information was entered into a reminder system with a target due date for their next mammogram. Electronically signed by: Jovani Devi MD 09/23/2024 09:23 AM EDT
--- OUTSIDE RECORDS SUMMARY | 2024-09-23 08:03 | XMS_ITS | Encounter Summary ---
Author Organization [employer] Address [address] [place] [address] [address] [place] [address] Care Team Providers Care Marriage Therapist Name Role Phone Unavailable Primary Care Provider Unavailabl e Encounter Details Date Type Department Care Team (Latest Contact Info) Description 09/10/2018 Abstract [facility] CONVERSIONS Dental, Provider, DDS Social History [...]
== END 2024-09-23 08:01 | disposition home or self-care (01) ==
LOC: HO.MAMMO 08:00
PROVIDERS: PCP Internal Medicine; Visit Provider Internal Medicine
DX: N64.89 Other specified disorders of breast (principal)
CPT/HCPCS: 77061; 77065

== ENCOUNTER → 2024-09-23 08:00 | Outpatient (BNV) | payer OTHER, SELFPAY | PROVIDERS: PCP Internal Medicine; Visit Provider Radiology Body Imaging | DX: R92.8 Other abnormal and inconclusive findings on diagnostic imaging of breast (principal) | CPT/HCPCS: 77061; 77065 ==

== ENCOUNTER 2024-10-06 15:13 | Emergency (ER) | payer OTHER, SELFPAY ==
--- NOTE | ~2024-10-06 | CT_ITS ---
CLINICAL HISTORY: head injury, pain CT cervical spine without contrast Comparison: CR - XR CERVICAL SPINE 2V - 02/26/24 09:30 EST Findings: Straightening of the cervical lordosis. Otherwise alignment is maintained with no subluxation. Vertebral body height is maintained. No acute fracture in the cervical spine. Craniocervical junction is intact. Degenerative changes at the C5-6 level with no significant canal stenosis and minimal stenosis of bilateral neural foramina. 7 mm round well-defined lucent lesion in C6 vertebral body on the right which is nonspecific. Prevertebral soft tissues within normal limits. Small mucous retention cyst/polyp in right maxillary sinus. No acute findings on limited view of the intracranial contents. No consolidation or effusion at the lung apices. IMPRESSION: 1. No acute findings. 2. Degenerative changes at C5-6 with minimal bilateral foraminal stenosis. This document has been electronically signed by: Joselyn Alejo MD on 10/06/2024 18:20:04
--- NOTE | ~2024-10-06 | CT_ITS ---
CLINICAL HISTORY: head injury, pain CT head without contrast Comparison: None provided Findings: No intra-axial mass, midline shift, hydrocephalus, or acute hemorrhage. No significant atrophy-like change or white matter disease. Small mucous retention cyst/polyp in right maxillary sinus. Otherwise sinuses and mastoid air cells are clear. The orbits are within normal limits. There is no acute skull fracture. IMPRESSION: 1. No acute intracranial findings. This document has been electronically signed by: Joselyn Alejo MD on 10/06/2024 18:25:06
--- NOTE | 2024-10-06 15:48 | ED_ITS ---
HPI - General Adult General Chief complaint: Headache Stated complaint: right hand injury; head injury; migraine Time Seen by Provider: 10/06/24 18:49 Source: patient Mode of arrival: ambulatory Limitations: no limitations History of Present Illness ED Provider: Bonny Snell PA-C HPI narrative: Patient is a 59 year old assigned female at with a history of hypothyroidism and DJD presenting to the emergency department today with a lump on her forehead and intermittent headaches since a head trauma in January of 2024. Patient states that she hit her head on something at the gym in January 2024 and ever since she has had a lump on her forehead and intermittent headaches. Patient states that her PCP advised her to come to the ER for imaging. Patient denies any other complaints at this time. Patient is adamant that her headaches / possible migraines started immediately after her headstrike in January of 2024. Related Data Previous Rx's ?Medication ?Instructions ?Recorded levothyroxine 100 mcg tablet 100 mcg PO .COMPLEX 30 da ys #90 07/29/24 tabs fluticasone propionate 50 2 spray intranasal DAILY #16 grams 09/24/24 mcg/actuation nasal spray,suspension (Allergy Relief (fluticasone)) Allergies Allergy/AdvReac Type Severity Reaction Status Date / Time No Known Allergies Allergy Unknown Verified 10/06/24 15:52 Review of Systems 2 Constitutional: Constitutional: Reports as per HPI Eyes: Eyes: Reports as per HPI ENT: Reports as per HPI Cardiovascular: Cardiovascular: Reports as per HPI Respiratory: Respiratory: Reports as per HPI Gastrointestinal: Gastrointestinal: Reports as per HPI Genitourinary: Genitourinary: Reports as per HPI Musculoskeletal: Musculoskeletal: Reports as per HPI Integumentary/Breasts: Skin/Breast: Reports as per HPI Neurologic: Reports as per HPI Psychiatric: Psychiatric: Reports as per HPI Endocrine: Endocrine: Reports as per HPI Hematologic/Lymphatic: Hematologic/Lymphatic: Reports as per HPI Allergic/Immunologic: Allergic/Immunologic: Reports as per HPI PMF Past Medical History Attestation statement: The following information was validated with the patient. Source: old records reviewed and nursing notes reviewed Medical History History of COVID-19 Osteoarthritis Hypothyroidism Surgical History History of hysterectomy Hx of colonoscopy H/O dilation and curettage Family History Family History Father Alzheimer disease Mother Lung cancer Social History Social History Household Members: Spouse Housing: House Are you a primary companion caregiver to a significant other at home: No Do you presently have visiting nurse or other home services: No Alcohol intake: current Alcohol intake frequency: a few times a month Patient Tobacco Use Status: Former Tobacco user Tobacco use type: Cigarette Cigarettes Per Day: 1 Years Smoked: 20 years e-Cigarette/Vaping Use: Never Used Advance Directives: No Advance Directives Information Provided: Yes Do you have a plan to hurt others: No Plan Patient : No service: No Current occupational status: unemployed Sexual orientation: Straight/Heterosexual Gender identity: Female Cognitive needs: No Hearing needs: No Vision needs: No Physical Exam ED Vital Signs: Vital Signs - 24 hr 10/06/24 15:50 10/06/24 18:46 Temperature 97.6 F 97.7 F Pulse Rate 70 68 Respiratory Rate 16 16 Blood Pressure 174/80 H 146/83 H Pulse Oximetry 99 99 Oxygen Delivery Method Room Air Room Air BMI result Body Mass Index 21.6 Const General: cooperative, no acute distress, alert and awake Nutritional Appearance: well nourished Orientation/consciousness: patient oriented x3 [facility] Head images: 2 1. small lipoma Ears: hearing grossly normal bilaterally and external ears normal General nose exam: Normal external nose present, no nasal discharge noted and no epistaxis Face and sinus: Yes normal facial exam, No abrasion and No laceration Mouth: Normal oral and palatal mucosa present, no drooling and no muffled voice Eyes General: appearance normal, both eyes and all related structures Periorbital: periorbital findings normal Eyelids: Yes eyelids normal Conjunctivae: conjunctivae normal Pupils: Equal, round and reactive pupils present EOM: EOMs intact bilaterally Neck Neck: Yes normal visual inspection and Yes full ROM Resp Effort & Inspection: normal respiratory effort and able to speak in complete sentences Neuro General: patient oriented x3, moves all extremities and CN's II-XI intact bilaterally Cranial nerves: Yes Equal, round and reactive pupils present Cognition (Neuro): normal cognition Extrem General: Yes normal to inspection, Yes full ROM and Yes capillary refill normal Psych Appearance: grossly normal Mental Status: mental status grossly normal Affect: normal affect Attitude: cooperative Thought process: Normal thought process present Thought content: Normal thought content present Insight: Good insight present (Psych) Course Course Course Narrative: Rapid medical examination performed in triage by Bonny Snell PA-C. Patient is a 59 year old assigned female at presenting to the emergency department with a headache from a head strike in January 2024. Patient states that she has had a lump since then and her PCP recommended she come in for a head scan now. Detailed physical exam and review of systems are deferred to the community relations director. Imaging ordered. Patient placed back in the waiting room pending room availability and results. Medical Decision Making Medical Decision Making MDM Narrative: Patient is a 59 year old assigned female at with a history of hypothyroidism and DJD presenting to the emergency department today with a lump on her forehead and intermittent headaches / migraines since a head trauma in January of 2024. Patient's physical exam was as noted in the physical exam portion of this note. Patient's CT head and c-spine showed no acute process. I explained my physical exam findings as well as all test results to the patient. I answered all questions asked by the patient. I had an extensive conversation with the patient regarding her headaches / migraines and the presence of a traumatic lipoma in her forehead. I explained that it is entirely possible she is having post traumatic head injury migraines / headaches. I explained that while yes, she has a traumatic lipoma, it is not possible to know if that is the cause of her headaches / migraines. I recommended she follow up with the general surgery office to discuss removal of the lipoma as the patient mentioned it is an eye sore and bothers her. The patient expressed concern regarding insurance covering the removal of the lipoma and I explained to her that I do not have any way of knowing if they will or will not but cannot provide any evidence or opinion that the lipoma is the cause of her migraines / headaches rather than the traumatic incident itself. I explained to the patient that for a proper migraine work up - she would have to see a neurologist and should be referred to one (if she so chooses) through her primary care provider. Patient verbalized understanding and agreement with discharge. Differential Diagnosis Differential Diagnoses: The differential diagnosis associated with the presentation includes Traumatic lipoma Headache Migraine Post traumatic head injury migraines Post traumatic head injury headache Admission/Observation Consideration of admission/observation: Escalation of care including admission/observation considered Patient would have been admitted to the hospital had her work up had any findings where hospital admission was appropriate and her clinical presentation warranted hospital admission. Independent Interpretation I performed an independent interpretation of an: CT Scan Interpretation: My interpretation is in agreement with the radiologist's impression of these imaging studies. L Report Number: [id number]: Total DLP = 0.00 mGy-cm CLINICAL HISTORY: head injury, pain CT head without contrast Comparison: None provided Findings: No intra-axial mass, midline shift, hydrocephalus, or acute hemorrhage. No significant atrophy-like change or white matter disease. Small mucous retention cyst/polyp in right maxillary sinus. Otherwise sinuses and mastoid air cells are clear. The orbits are within normal limits. There is no acute skull fracture. IMPRESSION: 1. No acute intracranial findings. This document has been electronically signed by: Joselyn Alejo MD on 10/06/2024 18:25:06 Dictated By: Joselyn Alejo MD Signed By: Electronically signed by Joselyn Alejo MD 10/06/24 1826 Report Number: [id number]: Total DLP = 867.00 mGy-cm CLINICAL HISTORY: head injury, pain CT cervical spine without contrast Comparison: CR - XR CERVICAL SPINE 2V - 02/26/24 09:30 EST Findings: Straightening of the cervical lordosis. Otherwise alignment is maintained with no subluxation. Vertebral body height is maintained. No acute fracture in the cervical spine. Craniocervical junction is intact. Degenerative changes at the C5-6 level with no significant canal stenosis and minimal stenosis of bilateral neural foramina. 7 mm round well-defined lucent lesion in C6 vertebral body on the right which is nonspecific. Prevertebral soft tissues within normal limits. Small mucous retention cyst/polyp in right maxillary sinus. No acute findings on limited view of the intracranial contents. No consolidation or effusion at the lung apices. IMPRESSION: 1. No acute findings. 2. Degenerative changes at C5-6 with minimal bilateral foraminal stenosis. This document has been electronically signed by: Joselyn Alejo MD on 10/06/2024 18:20:04 Dictated By: Joselyn Alejo MD Signed By: Electronically signed by Joselyn Alejo MD 10/06/24 0255 Radiology Impression Discussion of test interpretation with radiology: I have reviewed the radiologist's reading. Discharge Plan Discharge Clinical Impression: Lipoma, Head injury, Headache Patient Disposition: Home, Self-Care Instructions: Head Injury (DC), Lipoma (ED), Soft Tissue Mass (ED) Additional Instructions: Your head and c-spine CT scans were unremarkable. You have a traumatic lipoma (soft tissue mass / fatty mass) in your forehead that will have to be removed by either a general surgeon or plastic surgeon. IF you are prescribed home medications and/or you are taking over the counter medications at home - it is very important you continue to do so as prescribed / directed unless told otherwise. Follow up with your primary care provider. Return to the emergency department immediately if your symptoms worsen or if you develop any numbness, tingling, dizziness, shortness of breath, difficulty breathing, chest pain, blurry vision, loss of vision, nausea, vomiting, abdominal pain, fever, chills, back pain, or any other complaints. Please see the information below about our Patient Portal. If you are not yet enrolled in the [facility] Patient Portal, you will receive an enrollment email invitation following your visit to any [facility] setting. You may also self-enroll in the Patient Portal by visiting our website: [email or web address] The following information is required to access the Patient Portal: - Your [facility] Medical Record Number - Your personal home email address (must match what is in your electronic medical record, Registration staff can assist with this) - Name - Date of Capabilities of the Patient Portal: - Message some providers - View upcoming appointments - Access your health summary, medical history, and visit history - View current conditions and allergies - View procedure and lab results - View your medications, including guidelines, side effects, and precautions - Complete pre-appointment questionnaires requested by your provider - Ready summary reports of your office visits and procedures To access the Patient Portal Mobile [employer], follow these directions: - Search [employer] in the [employer] Store or Google TheTake Store - Download the Lopez - Search for [facility] - Enter your login/password Prescriptions: No Action fluticasone propionate [Allergy Relief (fluticasone)] 50 mcg/actuation spray,suspension 2 spray intranasal DAILY Qty: 16 6RF Rx Instructions: administer into each nostril levothyroxine 100 mcg tablet 100 mcg PO .COMPLEX 30 Days Qty: 90 3RF Rx Instructions: 100 mcg PO see below; Take 1 tablet Sun and 1/2 Tablet on Sunday Referrals: [facility] General Surgeons [Provider Group, General Surgery] Referral Note: Call to establish and follow up with a general surgeon for possible traumatic lipoma removal. Theresa Mack MD [Primary Care Provider, Internal Medicine] Interventions: ED Discharge Assessment Last Done: 10/06/24 19:32 Discharge Date/Time: 10/06/24 19:33 Print Language: Citizen Of [place]
[2024-10-06 15:50] VITALS: BP 174/80; PULSE 70; RESP 16; TEMP 36.4; O2SAT 99; BMI 21.6
[2024-10-06 18:46] VITALS: BP 146/83; PULSE 68; RESP 16; TEMP 36.5; O2SAT 99
[2024-10-06 19:32] VITALS: BP 146/83; PULSE 68; RESP 16; TEMP 36.5; O2SAT 99
== END 2024-10-06 19:33 | disposition home or self-care (01) ==
PROVIDERS: Emergency Provider Emergency Medicine; PCP Internal Medicine
DX: S09.90XA Unspecified injury of head, initial encounter (principal); R51.9 Headache, unspecified; D17.0 Benign lipomatous neoplasm of skin and subcutaneous tissue of head, face and neck; M54.2 Cervicalgia; X58.XXXA Exposure to other specified factors, initial encounter; Y93.9 Activity, unspecified; Y92.9 Unspecified place or not applicable; Y99.8 Other external cause status; Z87.891 Personal history of nicotine dependence
CPT/HCPCS: 70450; 72125; 99284

== ENCOUNTER → 2024-10-06 15:50 | Outpatient (BNV) | payer OTHER, SELFPAY | PROVIDERS: Emergency Provider Emergency Medicine; PCP Internal Medicine; Visit Provider Specialist | DX: S09.90XA Unspecified injury of head, initial encounter (principal); M54.2 Cervicalgia | CPT/HCPCS: 70450; 72125 ==

== ENCOUNTER 2024-10-28 10:11 | Outpatient (AMB) | payer OTHER, SELFPAY ==
--- NOTE | 2024-10-28 10:16 | A.OFFPC_ITS ---
Vital Signs 10/28/24 10:18 Height 5 ft 4 in Weight 126 lb BMI 21.6 BP 126/80 Blood Pressure Location Lt brachial Position Sitting Pulse 70 Pulse Source Pulse Oximeter Pulse Oximetry (%) 99 Intake Visit Reasons: follow up migraine Allergies No Known Allergies Allergy (Unknown, Verified 10/28/24 10:22) Medication List - Last Reconciled 10/28/24 by Theresa Mack MD fluticasone propionate 50 mcg/actuation (Allergy Relief (fluticasone)) 2 sprays intranasal DAILY levothyroxine 100 mcg PO see below; Take 1 tablet Sun- Sun and 1/2 Tablet on Sunday 30 days Tobacco use date assessed: 07/29/24 Dental Screening Dental Screen Date: 07/29/24 HPI follow up migraine HPI Details History of Present Illness The patient is a 59-year-old female presenting with a migraine headache. Migraine Headache: - The patient reports experiencing these headaches frequently and feeling like they are persistent. - Nausea is occasionally associated with the headaches. - The headache is localized on one side of the head and involves the frontal region. - The neck pain is associated with the h eadaches forehead bump : - The patient describes hitting her head severely at gym months ago, when she fell, but had no loss of consciousness. - The patient visited the emergency room for a concern about a bump on her head, recently and a CT scan conducted on October 06 showed no intracranial abnormalities. - Current management includes over-the-c ounter medication such as Advil, Tylenol, and occasional use of her 's Motrin 800, though these are not effective. 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 - Regularly attends the gym for physical activity. Diagnostic Results: - Labs (from February): - Hemoglobin with in normal limits - Metabolic profile indicated stable rosa ctrolytes, kidney function, and liver enzymes - LDL at 103 - Thyroid test within normal range - Imaging: - CT scan of the head conduct ed on October 06 showed no intracranial abnormalities. - CT scan of the neck revealed presence of osteoarthritis. Problem List - Migraine headache - Osteoarthritis of the neck - Osteoma post head injury - Thyroid dysfunction Patient Instructions - Begin amitriptyline medication at [facility] t with half a tablet; increase to a full tablet if needed. - Return for blood tests tomorrow марина beasley after fasting. - Make an appointment for a follow-up vi sit in three weeks. - Consult with a surgeon regarding the h ead bump for a potential removal procedure. Review of Systems - General: No fever no chills - Neurological: No headaches no dizziness - Ear nose throat: No sore throat no hearing difficulty no ear pain - Cardiovascular: No syncope, no chest pain, no palpitations - Gastrointestinal: No nausea vomiting or diarrhea - Endocrine: No polyuria polydipsia no heat intolerance - Genitourinary: No dysuria , no blood in urine Physical Exam General: No acute distress HEENT: No acute findings, most likely osteoma present on the forehead, TORREY, EOMI Neck: Supple Respiratory system: Able to talk in full sentences, no audible wheeze Cardiovascular: S1-S2 regular in rate and rhythm Gastrointestinal: No pain Extremities: No new findings 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 motor 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 intact Skin: Normal turgor [facility] Medical History History of COVID-19 Osteoarthritis Hypothyroidism Surgical History History of hysterectomy Hx of colonoscopy H/O dilation and curettage Family History Father Alzheimer disease Mother Lung cancer Social History Household Members: Spouse Housing: House Are you a primary child care specialist to a significant other at home: No Do you presently have visiting nurse or other home services: No Alcohol intake: current Alcohol intake frequency: a few times a month Patient Tobacco Use Status: Former Tobacco user Tobacco use type: Cigarette Cigarettes Per Day: 1 Years Smoked: 20 years e-Cigarette/Vaping Use: Never Used service: No Current occupational status: unemployed Sexual orientation: Straight/Heterosexual Gender identity: Female Cognitive needs: No Hearing needs: No Vision needs: No Female Reproductive History Menstrual Age of Menarche: 14 Questionnaire PHQ-9 Over the last 2 weeks, how often have you been bothered by any of the following problems? 1. Little interest or pleasure in doing things: not at all 2. Feeling down, depressed, or hopeless: not at all 3. Trouble falling or staying asleep, or sleeping too much: not at all 4. Feeling tired or having little energy: not at all 5. Poor appetite or overeating: not at all 6. Feeling bad about yourself - or that you are a failure or have let yourself or your family down: not at all 7. Trouble concentrating on things, such as reading the newspaper or watching television: not at all 8. Moving or speaking so slowly that other people could have noticed. Or the opposite - being so fidgety or restless that you have been moving around a lot more than usual: not at all 9. Thoughts that you would be better off or of hurting yourself in some way: not at all Total score: 0 Depression Screening Interpretation: Negative Depression Screening Done: Yes 23932 - PHQ-9 Billing: Yes Source: Developed by Drs. Iván Fuentes, Lyndsay Dias, Francis Hickey and colleagues, with an educational samantha from [employer]. Thrive Questionnaire Date Thrive assessed: 02/26/24 I am a: Patient What is your living situation today?: I have a steady place to live Within the past 12 months, did the food you bought not last and you didn't have the money to get more?: Never true Within the past 12 months, did you worry whether your food would run out before you got money to buy more?: Never true Do you have trouble paying for medicines?: No Do you have trouble getting transportation to medical appointments?: No Do you have trouble paying your heating and electricity bill?: No Do you have trouble taking care of your child, family member or friend?: No Do you have trouble with day-to-day activities such as bathing, preparing meals, shopping, managing finances, etc.?: No Are you currently unemployed and looking for a job?: No Are you interested in more education?: No Please select the resources that you would like help with: None Currently or been in a relationship where the following occur: No concerns reported THRIVE Score: 0 AUDIT C Alcohol Use Questionnaire (AUDIT-C) 1. How often do you have a drink containing alcohol?: 2-4 times a month 2. How many drinks containing alcohol do you have on a typical day when you are drinking?: 1 or 2 3. How often do you have six or more drinks on one occasion?: Less than monthly Total Score: 3 RAJAT-7 AMB Questionnaire RAJAT-7 Date RAJAT - 7 assessed: 02/26/24 Feeling nervous, anxious, or on edge: 0 = Not at all Not being able to stop or control worryin = Not at all Worrying too much about different things: 0 = Not at all Trouble relaxin = Not at all Being so restless that it is hard to sit still: 0 = Not at all Becoming easily annoyed or irritable: 0 = Not at all Feeling afraid as if something awful might happen: 0 = Not at all Total RAJAT-7 score (0-4 normal; 5-9 mild; 10-14 moderate; 15-21 severe): 0 Source: Developed by Drs. Iván Fuentes, Lyndsay Dias, Francis Hickey and colleagues, with an educational samantha from [employer]. RAJAT-7 Assessment Billing RAJAT-7 Assessment Tool: RAJAT-7 Assessment 76061 Physical exam (Primary Care) Vital Signs: Last Vital Signs Pulse 70 10/28/24 10:18 BP 126/80 10/28/24 10:18 Pulse Ox 99 10/28/24 10:18 BMI result Body Mass Index 21.6 Tobacco/Smoking Status: Tobacco use Status Tobacco use date assessed 07/29/24 10/28/24 10:18 Patient Tobacco Use Status Former Tobacco user 10/28/24 10:18 Tobacco use type Cigarette 10/28/24 10:18 e-Cigarette/Vaping Use Never Used 10/28/24 10:18 PHQ-9: PHQ-9 Score PHQ-9: Total score 0 10/28/24 11:42 Depression Screening Interpretation: Negative Thrive Assessment: Date of Thrive Assessment Date Thrive assessed 02/26/24 10/28/24 10:18 Currently or been in a relationship where the following occur: No concerns reported Coding Level of Care Code Est Pt Level 4 (00563) Diagnoses Headache syndrome G44.89 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 Other specified hypothyroidism E03.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 Spinal osteoarthritis complication: without myelopathy or radiculopathy Additional Codes PHQ-9 - 72637 - PHQ-9 Billing: Yes ([id number]) RAJAT-7 Assessment Billing - RAJAT-7 Assessment Tool: RAJAT-7 Assessment 18052 ([id number]) Assessment & Plan Assessment & Plan (1) Headache syndrome: Code(s): G44.89 - Other headache syndrome Category: Medical (2) Osteoma of skull: Code(s): D16.4 - Benign neoplasm of bones of skull and face Category: Medical (3) Other specified hypothyroidism: Code(s): E03.8 - Other specified hypothyroidism Category: Medical (4) DJD (degenerative joint disease), cervical: Code(s): M47.812 - Spondylosis without myelopathy or radiculopathy, cervical region Category: Medical Qualifiers: Spinal osteoarthritis complication: without myelopathy or radiculopathy Qualified Code(s): M47.812 - Spondylosis without myelopathy or radiculopathy, cervical region Plan History of Present Illness The patient is a 59-year-old female presenting with a migraine headache. Migraine Headache: - The patient reports experiencing these headaches frequently and feeling like they are persistent. - Nausea is occasionally associated with the headaches. - The headache is localized on one side of the head and involves the frontal region. - The neck pain is associated with the headaches forehead bump : - The patient describes hitting her head severely at gym months ago, when she fell, but had no loss of consciousness. - The patient visited the emergency room for a concern about a bump on her head, recently and a CT scan conducted on October 06 showed no intracranial abnormalities. - Current management includes [id number] medication such as Advil, Tylenol, and occasional use of her 's Motrin 800, though these are not effective. 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 - Regularly attends the gym for physical activity. Diagnostic Results: - Labs (from February): - Hemoglobin within normal limits - Metabolic profile indicated stable electrolytes, kidney function, and liver enzymes - LDL at 103 - Thyroid test within normal range - Imaging: - CT scan of the head conducted on October 06 showed no intracranial abnormalities. - CT scan of the neck revealed presence of osteoarthritis. Problem List - Migraine headache - Osteoarthritis of the neck - Osteoma post head injury - Thyroid dysfunction Patient Instructions - Begin amitriptyline medication at night with half a tablet; increase to a full tablet if needed. - Return for blood tests tomorrow morning after fasting. - Make an appointment for a follow-up visit in three weeks. - Consult with a surgeon regarding the head bump for a potential removal procedure. r Medications: New amitriptyline 25 mg PO BEDTIME 30 tabs 0RF 30 days
[2024-10-28 10:18] VITALS: BP 126/80; PULSE 70; O2SAT 99; BMI 21.6
== END 2024-10-28 12:59 | disposition home or self-care (01) ==
LOC: HO.HMCC 10:12
PROVIDERS: PCP Internal Medicine; Visit Provider Internal Medicine
DX: G44.89 Other headache syndrome (principal); D16.4 Benign neoplasm of bones of skull and face; E03.8 Other specified hypothyroidism; M47.812 Spondylosis without myelopathy or radiculopathy, cervical region

== ENCOUNTER → 2024-10-28 10:11 | Outpatient (BNVA) | payer OTHER, SELFPAY | PROVIDERS: PCP Internal Medicine; Visit Provider Internal Medicine | DX: M54.2 Cervicalgia (principal); G44.89 Other headache syndrome; D16.4 Benign neoplasm of bones of skull and face; E03.8 Other specified hypothyroidism; M47.812 Spondylosis without myelopathy or radiculopathy, cervical region | CPT/HCPCS: 96127; 99212 ==

== ENCOUNTER 2024-12-04 10:58 | Outpatient (REF) | payer OTHER, SELFPAY ==
[2024-12-04 13:08] LABS: MANUAL DIFF FLAG NO
[2024-12-04 13:22] LABS: Hematocrit 36.4 % (37.0-47.0); Hemoglobin 12.0 g/dl (12.0-16.0); Imm Gran Abs Auto 0.00 X10*3/uL (0.00-0.03); Imm Gran Pct Auto 0.0 % (0.0-0.4); Lymphocytes Absolute Auto 1.4 X10*3/uL (1.2-4.9); Mean Corpuscular HGB Conc 33.0 g/dl (31.0-35.0); Mean Corpuscular Hemoglobin 30.5 pg (27.0-33.0); Mean Corpuscular Volume 92.6 fL (80.0-98.0); NRBC Abs Auto 0.000 X10*3/uL (0.0-0.012); NRBC Pct Auto 0.0 /100WBC (0.0-0.2); Platelet Count 237 X10*3/uL (160-400); Red Blood Count 3.93 X10*6/uL (4.20-5.50); White Blood Count 3.9 X10*3/uL (4.8-10.8)
[2024-12-04 13:39] LABS: Alanine Aminotransferase 33 U/L (0-31); Albumin Level 4.4 g/dL (3.5-5.0); Alkaline Phosphatase 83 U/L (39-117); Anion Gap 11 (12-20); Aspartate Amino Transferase 30 U/L (5-31); Blood Urea Nitrogen 9 mg/dL (9-16); Calcium 8.9 mg/dL (8.4-10.2); Carbon Dioxide 28 mmol/L (22-29); Chloride 109 mmol/L (96-108); Cholesterol 195 mg/dL (<200); Estimated Glomerular Filt Rate > 60; HDL Cholesterol 82 mg/dL (>40); Potassium 4.1 mmol/L (3.3-5.1); Sodium 144 mmol/L (135-145); Total Protein 6.7 g/dL (6.5-8.0); Triglycerides 48 mg/dL (<150)
== END 2024-12-04 10:59 | disposition home or self-care (01) ==
LOC: HO.HMGCLDS 10:58
PROVIDERS: PCP Internal Medicine; Visit Provider Internal Medicine
DX: Z00.01 Encounter for general adult medical examination with abnormal findings (principal); E03.8 Other specified hypothyroidism; Z91.09 Other allergy status, other than to drugs and biological substances; J30.89 Other allergic rhinitis
CPT/HCPCS: 36415; 80053; 80061; 84443; 85025

== ENCOUNTER 2024-12-09 08:17 | Outpatient (AMB) | payer OTHER, SELFPAY ==
--- NOTE | 2024-12-09 08:22 | A.OFFPC_ITS ---
Vital Signs 12/09/24 08:23 Height 5 ft 4 in Weight 129 lb BMI 22.1 BP 100/60 Blood Pressure Location Lt brachial Position Sitting Respiration 16 Temp 97.7 F Temp Source Oral Intake Visit Reasons: 3 week follow RE Allergies No Known Allergies Allergy (Unknown, Verified 10/28/24 10:22) Medication List - Last Reconciled 12/09/24 by Theresa Mack MD amitriptyline 25 mg PO BEDTIME 30 days fluticasone propionate 50 mcg/actuation (Allergy Relief (fluticasone)) 2 sprays intranasal DAILY levothyroxine 100 mcg PO see below; Take 1 tablet Sun- Sun and 1/2 Tablet on Sunday 30 days Tobacco use date assessed: 12/09/24 Dental Screening Dental Screen Date: 12/09/24 Did you have a dental visit in the last 12 months?: Yes Did you have a dental problem in the last 6 months where you did not have access to dental care?: No Was dental information given to patient?: Patient has dentist HPI 3 week follow RE HPI Details History of Present Illness The patient is a 59-year-old female presenting for follow-up on headache man agement and review of lab results. Headache: - The patient reports that her current h eadache medication amitriptyline 25 mg, which she has been taking, initially provided relief but is no longer effective. She has seen improvement however headache is still coming off and on, she would like to be seen by a neurologist, referral placed Leukopenia: - The patient has a history of a fluctua ting white blood cell count. - Recent lab work shows a white count of 3.9, which is slightly below the normal range of 4.8 and above, but it has increased from 3.7 in February. Hypothyroidism: - The patient is being treated for a thy roid condition and takes levothyroxine. - Recent lab results show her thyroid le vels are normal. Allergic rhinitis: - The patient uses fluticasone nasal spr ay for an unspecified condition, taking it every other day or less frequently as instructed. Medical History: - Headache - Leukopenia - Hypothyroidism - Allergic rhinitis Medications: - Unspecified medication 25 mg for heada ches. - Levothyroxine - Fluticasone nasal spray, taken every o ther day or less frequently. - Flonase nasal spray Diagnostic Results: - White blood cell count: 3.9 (reference range >4.8), which is stable from 3.7 in February. - Anemia: None noted. - Electrolytes: Stable and normal. Chlor micah is 109, potassium and sodium are normal. - Creatinine: 0.56 (normal). - Glomerular filtration rate: >60 (danielito l). - Glucose: Normal. - Liver enzymes: Stable. - LDL Cholesterol: 104. - Thyroid function: Normal. Problem List - Headache - Leukopenia - Hypothyroidism - Allergic rhinitis Plan - Headache: Advised to try doubling the current amitriptyline 25 mg medication to 50 mg on a day off to assess efficacy and side effects, such as morning grogginess. - Placed a referral to a neurologist at [facility] for further evaluation of headaches; the neurology department will contact the patient to schedule an appointment. - Medications: Continue taking levothyro xine and fluticasone nasal spray as directed. - Lab Results: Labs were reviewed and ar e stable with no acute concerns. - Follow-up: The patient should keep her scheduled appointment for a physical ex am in July. 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 Skin: Normal turgor [facility] Medical History History of COVID-19 Osteoarthritis Hypothyroidism Surgical History History of hysterectomy Hx of colonoscopy H/O dilation and curettage Family History Father Alzheimer disease Mother Lung cancer Social History Household Members: Spouse Housing: House Are you a primary lead caregiver to a significant other at home: No Do you presently have visiting nurse or other home services: No Alcohol intake: current Alcohol intake frequency: a few times a month Patient Tobacco Use Status: Former Tobacco user Tobacco use type: Cigarette Cigarettes Per Day: 1 Years Smoked: 20 years e-Cigarette/Vaping Use: Never Used service: No Current occupational status: unemployed Sexual orientation: Straight/Heterosexual Gender identity: Female Cognitive needs: No Hearing needs: No Vision needs: No Female Reproductive History Menstrual Age of Menarche: 14 Questionnaire PHQ-9 Over the last 2 weeks, how often have you been bothered by any of the following problems? 1. Little interest or pleasure in doing things: not at all 2. Feeling down, depressed, or hopeless: not at all 3. Trouble falling or staying asleep, or sleeping too much: not at all 4. Feeling tired or having little energy: not at all 5. Poor appetite or overeating: not at all 6. Feeling bad about yourself - or that you are a failure or have let yourself or your family down: not at all 7. Trouble concentrating on things, such as reading the newspaper or watching television: not at all 8. Moving or speaking so slowly that other people could have noticed. Or the opposite - being so fidgety or restless that you have been moving around a lot more than usual: not at all 9. Thoughts that you would be better off or of hurting yourself in some way: not at all Total score: 0 Depression Screening Interpretation: Negative Depression Screening Done: Yes 72330 - PHQ-9 Billing: Yes Source: Developed by Drs. Iván Fuentes, Lyndsay Dias, Francis Hikcey and colleagues, with an educational samantha from [employer]. Thrive Questionnaire Date Thrive assessed: 02/26/24 I am a: Patient What is your living situation today?: I have a steady place to live Within the past 12 months, did the food you bought not last and you didn't have the money to get more?: Never true Within the past 12 months, did you worry whether your food would run out before you got money to buy more?: Never true Do you have trouble paying for medicines?: No Do you have trouble getting transportation to medical appointments?: No Do you have trouble paying your heating and electricity bill?: No Do you have trouble taking care of your child, family member or friend?: No Do you have trouble with day-to-day activities such as bathing, preparing meals, shopping, managing finances, etc.?: No Are you currently unemployed and looking for a job?: No Are you interested in more education?: No Please select the resources that you would like help with: None Currently or been in a relationship where the following occur: No concerns reported THRIVE Score: 0 AUDIT C Alcohol Use Questionnaire (AUDIT-C) 1. How often do you have a drink containing alcohol?: 2-4 times a month 2. How many drinks containing alcohol do you have on a typical day when you are drinking?: 1 or 2 3. How often do you have six or more drinks on one occasion?: Less than monthly Total Score: 3 RAJAT-7 AMB Questionnaire RAJAT-7 Date RAJAT - 7 assessed: 02/26/24 Feeling nervous, anxious, or on edge: 0 = Not at all Not being able to stop or control worryin = Not at all Worrying too much about different things: 0 = Not at all Trouble relaxin = Not at all Being so restless that it is hard to sit still: 0 = Not at all Becoming easily annoyed or irritable: 0 = Not at all Feeling afraid as if something awful might happen: 0 = Not at all Total RAJAT-7 score (0-4 normal; 5-9 mild; 10-14 moderate; 15-21 severe): 0 Source: Developed by Drs. Iván Fuentes, Lyndsay Dias, Francis Hickey and colleagues, with an educational samantha from [employer]. RAJAT-7 Assessment Billing RAJAT-7 Assessment Tool: RAJAT-7 Assessment 19887 Physical exam (Primary Care) Vital Signs: Last Vital Signs Temp 97.7 F 12/09/24 08:23 Resp 16 12/09/24 08:23 BP 100/60 12/09/24 08:23 BMI result Body Mass Index 22.1 Tobacco/Smoking Status: Tobacco use Status Tobacco use date assessed 12/09/24 12/09/24 08:26 Patient Tobacco Use Status Former Tobacco user 12/09/24 08:26 Tobacco use type Cigarette 12/09/24 08:26 e-Cigarette/Vaping Use Never Used 12/09/24 08:26 PHQ-9: PHQ-9 Score PHQ-9: Total score 0 12/09/24 08:32 Depression Screening Interpretation: Negative Thrive Assessment: Date of Thrive Assessment Date Thrive assessed 02/26/24 12/09/24 08:26 Currently or been in a relationship where the following occur: No concerns reported Coding Level of Care Code Est Pt Level 3 (53455) Diagnoses Headache syndrome G44.89 Additional Codes PHQ-9 - 52342 - PHQ-9 Billing: Yes ([id number]) RAJAT-7 Assessment Billing - RAJAT-7 Assessment Tool: RAJAT-7 Assessment 69274 ([id number]) Assessment & Plan Assessment & Plan (1) Headache syndrome: Code(s): G44.89 - Other headache syndrome Category: Medical Plan Headache: - The patient reports that her current headache medication amitriptyline 25 mg, which she has been taking, initially provided relief but is no longer effective. She has seen improvement however headache is still coming off and on, she would like to be seen by a neurologist, referral placed Leukopenia: - The patient has a history of a fluctuating white blood cell count. - Recent lab work shows a white count of 3.9, which is slightly below the normal range of 4.8 and above, but it has increased from 3.7 in February. Hypothyroidism: - The patient is being treated for a thyroid condition and takes levothyroxine. - Recent lab results show her thyroid levels are normal. Allergic rhinitis: - The patient uses fluticasone nasal spray for an unspecified condition, taking it every other day or less frequently as instructed. Medical History: - Headache - Leukopenia - Hypothyroidism - Allergic rhinitis Medications: - Unspecified medication 25 mg for headaches. - Levothyroxine - Fluticasone nasal spray, taken every other day or less frequently. - Flonase nasal spray Diagnostic Results: - White blood cell count: 3.9 (reference range >4.8), which is stable from 3.7 in February. - Anemia: None noted. - Electrolytes: Stable and normal. Chloride is 109, potassium and sodium are normal. - Creatinine: 0.56 (normal). - Glomerular filtration rate: >60 (normal). - Glucose: Normal. - Liver enzymes: Stable. - LDL Cholesterol: 104. - Thyroid function: Normal. Problem List - Headache - Leukopenia - Hypothyroidism - Allergic rhinitis Plan - Headache: Advised to try doubling the current amitriptyline 25 mg medication to 50 mg on a day off to assess efficacy and side effects, such as morning grogginess. - Placed a referral to a neurologist at [facility] for further evaluation of headaches; the neurology department will contact the patient to schedule an appointment. - Medications: Continue taking levothyroxine and fluticasone nasal spray as directed. - Lab Results: Labs were reviewed and are stable with no acute concerns. - Follow-up: The patient should keep her scheduled appointment for a physical exam in July. Orders: Referrals Neurology Referral G44.89 - Other headache syndrome
[2024-12-09 08:23] VITALS: BP 100/60; RESP 16; TEMP 36.5; BMI 22.1
--- OUTSIDE RECORDS SUMMARY | 2024-12-09 08:50 | XMS_ITS | Encounter Summary ---
Author Organization [employer] Address [address] [place] [address] [address] [place] [address] Care Team Providers Care Forensic Pathologist Name Role Phone Unavailable Primary Care Provider Unavailabl e Reason for Visit * Reason Onset Date Comments case back from lab? 06/27/2024 Encounter Details Date Type Department Care Team ([facility] st Contact Info) Description 06/27/2024 Telephone [facility] [address] [place] [address] Amarjit Lawrence, DMD [address], [place] [phone] case back from lab? Social History Tobacco Use Types Packs/Day Years [...] AM EDT documented as of this encounter Miscellaneous Notes * Telephone Encounter - Emelia Ghotra - 06/27/2024 8:33 AM EDT Patient states she is calling to verify if her case is back from lab ([facility]) She has a temp in and is looking to try to be delivered sooner if it is in due to leaving for vacation soon 07/07 She currently h as an appt scheduled for 07/17. documented in this encounter Plan of Treatment Not on file documented as of this encounter Visit Diagnoses Not on filedocumented in this encounter
--- OUTSIDE RECORDS SUMMARY | 2024-12-09 08:50 | XMS_ITS | Clinical Summary ---
Author Organization [employer] Address [address] [place] [address] [address] [place] [address] Care Team Providers Care Factory Manager Name Role Phone Unavailable Primary Care Provider [...] by mouth 2 times daily. 3 Active chlorhexidine (Peridex) 0.12 % solution Swish 15 mL morning and night for 1 minute. Spit, do not swallow. Do not eat or drink for 30 minutes following use. 473 mL 5 Active Active Problems Problem Noted Date Diagnosed Date Hypothyroidism 03/18/2010 Social History Tobacco Use Types Packs/Day Years [...] Sign Reading Time Taken Comments Blood Pressure 106/72 06/19/2024 8:07 AM EDT Pulse 65 10/02/2023 8:09 AM [...] Screening 1967 SDOH Screening 1967 Sigmoidoscopy 1967 Disability Screening 1967 Alcohol/Substance Use Screening 1979 Hepatitis C Screening 1985 Hepatitis B Vaccines (1 of 3 - 19+ 3-dose series) 1986 Pap Smear 01/11/1988 Cervical Cancer Screening 1997 HPV/Cotest 1997 Mammogram 2007 Pneumococcal Vaccine: 50+ Years (1 of 1 - PCV) 2017 Zoster Vaccines (1 of 2) 2017 Dental X-Ray: Bitewings 10/02/2024 10/02/19, 01/22/2023, 04/24/2022 COVID-19 Vaccine ( season) 2024 12/13/2020, 11/22/2020 Influenza Vaccine (#1) 2024 Dental Oral Exam 11/06/2024 05/05/2024, , 01/22/2023, Additional history exists Dental Prophylaxis 11/06/2024 05/05/2024, 0 10/02/2023, 01/22/2023, Additional history exists DTaP/Tdap/Td Vaccines (2 - Td or Tdap) 07/06/2025 07/07/2015 Tobacco Screening 08/05/2025 08/05/2024 Dental X-Ray: Full Mouth 10/02/2026 10/02/2023 RSV [...] patient's age to complete this topic Meningococcal B Vaccine Aged Out No l onger eligible based on patient's age to complete [...] Most Recently Relevant to Health Maintenance Insurance [facility] STAND AD[place]
--- OUTSIDE RECORDS SUMMARY | 2024-12-09 08:50 | XMS_ITS | Encounter Summary ---
Author Organization [employer] Address [address] [place] [address] 7 [place] [address] Care Team Providers Care Public Affairs Officer Name Role Phone Unavailable Primary Care Provider Unavailabl e Encounter Details Date Type Department Care Team (Latest Contact Info) Description 09/10/[address] [facility] CONVERSIONS Dental, Provider, DDS Social History [...]
--- OUTSIDE RECORDS SUMMARY | 2024-12-09 08:50 | XMS_ITS | Encounter Summary ---
Author Organization [employer] Address [address] [place] [address] 7 [place] [address] Care Team Providers Care Carpet Installation Specialist Name Role Phone Unavailable Primary Care Provider Unavailabl e Encounter Details Date Type Department Care Team (Latest Contact Info) Description 03/05/2020 Abstract [facility] CONVERSIONS Dental, Provider, DDS Social History [...]
== END 2024-12-09 09:23 | disposition home or self-care (01) ==
LOC: HO.HMCC 08:18
PROVIDERS: PCP Internal Medicine; Visit Provider Internal Medicine
DX: G44.89 Other headache syndrome (principal)

== ENCOUNTER → 2024-12-09 08:17 | Outpatient (BNVA) | payer OTHER, SELFPAY | PROVIDERS: PCP Internal Medicine; Visit Provider Internal Medicine | DX: G44.89 Other headache syndrome (principal); D72.819 Decreased white blood cell count, unspecified; E03.9 Hypothyroidism, unspecified; J30.9 Allergic rhinitis, unspecified | CPT/HCPCS: 96127; 99212 ==

== ENCOUNTER 2024-12-18 08:15 | Outpatient (REF) | payer OTHER, SELFPAY ==
[2024-12-18 12:55] LABS: Resp Syncy Virus RNA Qual PCR NEGATIVE (Negative); SARS COV2 PCR INHOUSE NEGATIVE (Negative)
== END 2024-12-18 08:16 | disposition home or self-care (01) ==
LOC: HO.LNP 08:15
PROVIDERS: PCP Internal Medicine; Visit Provider Physician Assistant Medical
DX: R05.1 Acute cough (principal); Z13.89 Encounter for screening for other disorder; Z87.891 Personal history of nicotine dependence
CPT/HCPCS: 81003; 87637; 87880; 99212

== ENCOUNTER 2024-12-18 08:15 | Outpatient (AMB) | payer OTHER, SELFPAY ==
[2024-12-18 08:28] VITALS: BP 108/60; PULSE 65; TEMP 36.6; O2SAT 98; BMI 22.0
--- NOTE | 2024-12-18 08:28 | AM.OFFWIN_ITS ---
Intake Vital Signs 12/18/24 08:28 Height 5 ft 4 in Weight 128 lb BMI 22.0 BP 108/60 Blood Pressure Location Lt brachial Position Sitting Pulse 65 Pulse Source Pulse Oximeter Temp 97.8 F Temp Source Oral Pulse Oximetry (%) 98 Oxygen Delivery Method Room Air Intake Visit Reasons: EP-cough, sore throat, mid back pain Patient Tobacco Use Status: Former Tobacco user Allergies No Known Allergies Allergy (Unknown, Verified 12/18/24 08:28) Do you need a note to return to daycare/school/sports/work: Yes HPI HPI Comments History of Present Illness Details History - The patient is a 59-year-old female pr esenting with a persistent cough. - The cough began approximately four day s ago and is described as persistent, similar to a bronchitis cough. - The cough is dry and worse at night. - The cough has been severe enough to di srupt sleep and is associated with musculoskeletal pain in the back due to coughing. - The illness appears to have spread wit hin the family, starting with the patient's nephew and affecting multiple family members. - The patient denies any history of asth ma, fever, sore throat, or ear pain. - The patient has a history of allergies but no smoking history. - She denies fever, chills, chest pain, SOB, abd pain, n/v/d. - She has no recent travel. Physical Exam General: Cooperative, healthy appearing, comfortable and no acute distress Orientation/consciousness: Patient oriented x3 Limitations: No limitations Head: Normal to inspection Ears: Hearing grossly normal bilaterally, external ears normal and TM's normal bilaterally Nose: Normal external nose present, normal nares present, and no nasal discharge present. Face and sinus: Sinuses nontender to palpation. Mouth: Normal oral and palatal mucosa present and moist mucous membranes noted. Throat: Tonsils normal. Uvula is midline. Posterior oropharynx with erythema and no exudates. Eyes: Appearance normal, both eyes and all related structures Neck: Normal visual inspection, full ROM. No lymphadenopathy noted. Respiratory: Clear to auscultation bilaterally. Normal respiratory effort, able to speak in complete sentences. No respiratory distress, not tachypneic, no tripod positioning and no use of accessory muscles. Cardiovascular: Regular rate and rhythm. Normal S1 and S2 Skin: No rashes or lesions noted Patient was informed and verbally consented to the use of an ambient scribe for clinic note documentation during this visit [facility] Medical History History of COVID-19 Osteoarthritis Hypothyroidism Surgical History History of hysterectomy Hx of colonoscopy H/O dilation and curettage Family History Father Alzheimer disease Mother Lung cancer Social History Household Members: Spouse Housing: House Are you a primary resident care coordinator to a significant other at home: No Do you presently have visiting nurse or other home services: No Alcohol intake: current Alcohol intake frequency: a few times a month Patient Tobacco Use Status: Former Tobacco user Tobacco use type: Cigarette Cigarettes Per Day: 1 Years Smoked: 20 years e-Cigarette/Vaping Use: Never Used service: No Current occupational status: unemployed Sexual orientation: Straight/Heterosexual Gender identity: Female Cognitive needs: No Hearing needs: No Vision needs: No Female Reproductive History Menstrual Age of Menarche: 14 Review of Systems Const All systems reviewed & are unremarkable except as noted in HPI and below Physical Exam Vital Signs: Last Vital Signs Temp 97.8 F 12/18/24 08:28 Pulse 65 12/18/24 08:28 BP 108/60 12/18/24 08:28 Pulse Ox 98 12/18/24 08:28 Oxygen Delivery Method Room Air 12/18/24 08:28 BMI result Body Mass Index 22.0 Results AMB Urinalysis, Automated UA Leukoctes 0 Chapito/uL Last Edit by Annita Yin CMA on 12/18/24 08:36 UA Nitrite Negative Last Edit by Annita Yin CMA on 12/18/24 08:36 UA Urobilinogen 0.2 mg/dL Last Edit by Annita Yin CMA on 12/18/24 08:36 UA Protein 0 mg/dL Last Edit by Annita Yin CMA on 12/18/24 08:36 UA pH 7.5 Last Edit by Annita Yin CMA on 12/18/24 08:36 UA Blood 0 Jordan/uL Last Edit by Annita Yin CMA on 12/18/24 08:36 UA Specific [place] 1.015 Last Edit by Annita Yin CMA on 12/18/24 08:36 UA Ketone Negative Last Edit by Annita Yin CMA on 12/18/24 08:36 UA Bilirubin 0 mg/dL Last Edit by Annita Yin CMA on 12/18/24 08:36 UA Glucose 0 mg/dL Last Edit by Annita Yin CMA on 12/18/24 08:36 AMB Rapid Strep AMB Rapid Strep Negative Last Edit by Ian Cardona CMA on 12/18/24 09 :09 Results Reviewed Results Reviewed: Laboratory Last Values Urine pH (Auto) 7.5 12/18/24 08:34 Specific [place] (Auto) 1.015 12/18/24 08:34 Urine Protein (Auto) 0 mg/dL 12/18/24 08:34 Glucose (UA)(Auto) 0 mg/dL 12/18/24 08:34 Urine Ketones (Auto) Negative 12/18/24 08:34 Urine Blood (Auto) 0 Jordan/uL 12/18/24 08:34 Urine Nitrite (Auto) Negative 12/18/24 08:34 Urine Bilirubin (Auto) 0 mg/dL 12/18/24 08:34 Urine Urobilinogen (Auto) 0.2 mg/dL 12/18/24 08:34 Leukocyte Esterase (Auto) 0 Chapito/uL 12/18/24 08:34 Strep Scn Rapid Clinic Negative 12/18/24 09:08 Assessment & Plan Assessment & Plan (1) Cough: Code(s): R05.9 - Cough, unspecified Qualifiers: Cough type: acute Qualified Code(s): R05.1 - Acute cough Plan Most likely URI vs covid vs flu vs RSV vs viral illness vs bronchitis rapid strep is negative plan - tylenol or motrin as needed - Prescribed prednisone and inhaler to reduce inflammation and ease breathing. - Prescribed cough medicine to manage symptoms and improve sleep quality. - Prescribed Z-Khris (azithromycin) to prevent secondary bacterial infection. - Advised to monitor symptoms and prevent further spread within the household. - will call her with the results - follow up with PCP. Orders: Orders SARS-CoV2/FLU/RSV Today R09.89 - Other specified symptoms and signs involving the circulatory and respiratory systems AMB Rapid Strep Screen Today Z13.9 - Encounter for screening, unspecified AMB Urinalysis Automated Today Z13.9 - Encounter for screening, unspecified Coding Level of Care Code Est Pt Level 3 (55862) Diagnoses Acute cough R05.1 Cough type: acute
--- OUTSIDE RECORDS SUMMARY | 2024-12-18 08:34 | XMS_ITS | Clinical Summary ---
Author Organization [employer] Address [address] [place] [address] [address] [place] [address] Care Team Providers Care Design Transferrer Name Role Phone Unavailable Primary Care Provider [...]
--- OUTSIDE RECORDS SUMMARY | 2024-12-18 08:34 | XMS_ITS | Encounter Summary ---
Author Organization [employer] Address [address] [place] [address] 7 [place] [address] Care Team Providers Care Various Exceptionalities Teacher Name Role Phone Unavailable Primary Care Provider Unavailabl e Encounter Details Date Type Department Care Team (Latest Contact Info) Description 09/10/2018 Abstract [facility] CONVERSIONS Dental, Provider, DDS Social History [...]
--- OUTSIDE RECORDS SUMMARY | 2024-12-18 08:34 | XMS_ITS | Encounter Summary ---
Author Organization [employer] Address [address] [place] [address] [address]t [place] [address] Care Team Providers Care Cell Stripper Final Name Role Phone Unavailable Primary Care Provider Unavailabl e Reason for Visit * Reason Onset Date Comments case back from lab? 06/27/2024 Encounter Details Date Type Department Care Team ([facility] st Contact Info) Description 06/27/2024 Telephone [facility]ULT [facility] [address] [place] [address] Amarjit Lawrence, DMD [address] [place], [place] [phone] case back from lab? Social History Tobacco [...]
--- OUTSIDE RECORDS SUMMARY | 2024-12-18 08:34 | XMS_ITS | Encounter Summary ---
Author Organization [employer] Address [address] [place] [address] [address] [place] [address] Care Team Providers Care Bead Wire Insulator Name Role Phone Unavailable Primary Care Provider Unavailabl e Encounter Details Date Type Department Care Team (Latest Contact Info) Description 03/05/[address] [facility] CONVERSIONS Dental, Provider, DDS Social History [...]
== END 2024-12-18 09:13 | disposition home or self-care (01) ==
PROVIDERS: PCP Internal Medicine; Visit Provider Physician Assistant Medical
DX: R05.1 Acute cough (principal); Z13.9 Encounter for screening, unspecified

== ENCOUNTER 2025-01-27 07:32 | Outpatient (AMB) | payer OTHER, SELFPAY ==
--- OUTSIDE RECORDS SUMMARY | 2025-01-27 07:36 | XMS_ITS | Encounter Summary ---
Author Organization [employer] Address [address] [place] [address] 7 [place] [address] Care Team Providers Care Yield Analyst Name Role Phone Unavailable Primary Care Provider Unavailabl e Encounter Details Date Type Department Care Team (Latest Contact Info) Description 03/05/2020 Abstract [facility] CONVERSIONS Dental, Provider, DDS Social History Tobacco [...]
--- OUTSIDE RECORDS SUMMARY | 2025-01-27 07:36 | XMS_ITS | Encounter Summary ---
Author Organization [employer] Address [address] [place] [address] [address] [place] [address] Care Team Providers Care Provider Scribe Name Role Phone Unavailable Primary Care Provider Unavailabl e Encounter Details Date Type Department Care Team (Latest Contact Info) Description 09/10/2018 Abstract [facility] CONVERSIONS Dental, Provider, DDS Social [...]
--- OUTSIDE RECORDS SUMMARY | 2025-01-27 07:36 | XMS_ITS | Encounter Summary ---
Author Organization [employer] Address [address] [place] [address] [address]t [place] [address] Care Team Providers Care Assistant Family Teacher Name Role Phone Unavailable Primary Care Provider Unavailabl e Reason for Visit * Reason Onset Date Comments case back from lab? 06/27/2024 Encounter Details Date Type Department Care Team ([facility] st Contact Info) Description 06/27/2024 Telephone [facility] ADULT DENTAL [address] [place] [address] Amarjit Lawrence, DMD [address] [place], [place] [phone] case back from lab? Social History Tobacco [...]
--- OUTSIDE RECORDS SUMMARY | 2025-01-27 07:36 | XMS_ITS | Clinical Summary ---
Author Organization [employer] Address [address] [place] [address] [address] [place] [address] Care Team Providers Care Holter Scanning Technician Name Role Phone Unavailable Primary Care Provider [...] Encounters Date Type Department Care Team Description 01/20/2025 Orders Only [facility] ADULT [facility] [address] [place] [address] Amarjit Lawrence DMD from Last 3 Months [...] Most Recently Relevant to Health Maintenance Insurance [facility] MEDICAID STAND ADULT
--- NOTE | 2025-01-27 07:37 | A.OFFVIS_ITS ---
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 No complaints. Last Pap was negative in 2011 was negative, the patient is status post hysterectomy for fibroids in Last Mammogram was BI-RADS 1 in 10/06 Last Colonoscopy was in 06/04, the recommendation was to repeat in 10 years [facility] Medical History History of COVID-19 Osteoarthritis Hypothyroidism Surgical History History of hysterectomy Hx of colonoscopy H/O dilation and curettage Family History Father Alzheimer disease Heart disease Mother Lung cancer Diabetes Social History Household Members: Spouse Housing: House Are you a primary care management coordinator to a significant other at home: No Do you presently have visiting nurse or other home services: No Alcohol intake: current Alcohol intake frequency: a few times a month Patient Tobacco Use Status: Former Tobacco user Tobacco use type: Cigarette Cigarettes Per Day: 1 Years Smoked: 20 years e-Cigarette/Vaping Use: Never Used service: No Current occupational status: unemployed Sexual orientation: Straight/Heterosexual Gender identity: Female Cognitive needs: No Hearing needs: No Vision needs: No Female Reproductive History Menstrual Age of Menarche: 14 Date of Mammogram: 09/08/24 Review of Systems Const All systems reviewed & are unremarkable except as noted in HPI and below Card Reports as per HPI and Reports no additional complaints Resp Reports as per HPI and Reports no additional complaints GI Reports as per HPI and Reports no additional complaints Reports as per HPI Physical Exam Vital Signs: BMI result Body Mass Index 22.3 Const General: cooperative, healthy appearing and comfortable General: Yes bladder normal to palpation External Female Exam: No lesion Speculum Exam - Vagina: normal appearance of the vagina, normal vaginal discharge and not erythematous Speculum Exam - Cervix: Cervix absent Bimanual exam- vagina & uterus: bladder normal to palpation and uterus absent Bimanual Exam- Adnexa, other: Other (No masses detected) Assessment & Plan Assessment & Plan (1) Well woman exam: Code(s): Z01.419 - Encounter for gynecological examination (general) (routine) without abnormal findings Category: Medical Plan: Co testing not indicated this year. Counseled the patient about the recommended dietary allowance of 1200 mg of Calcium & 600 IU of vitamin D. Instructions given the patient to schedule next screening Mammogram in 10/07. The patient was instructed to perform monthly self-breast exams and schedule annual exam in a year. All questions answered and the patient verbalized understanding. Coding Level of Care Code Est Pt Prev Care 40-64y(93842) Diagnoses Well woman exam Z01.419
[2025-01-27 07:39] VITALS: BMI 22.3
== END 2025-01-27 09:00 | disposition home or self-care (01) ==
LOC: HO.HWS 07:32
PROVIDERS: PCP Internal Medicine; Visit Provider Obstetrics & Gynecology
DX: Z01.419 Encounter for gynecological examination (general) (routine) without abnormal findings (principal)
CPT/HCPCS: 99396; 99459

== ENCOUNTER → 2025-01-27 07:32 | Outpatient (BNVA) | payer OTHER, SELFPAY | PROVIDERS: PCP Internal Medicine; Visit Provider Obstetrics & Gynecology | DX: Z01.419 Encounter for gynecological examination (general) (routine) without abnormal findings (principal); Z71.3 Dietary counseling and surveillance; Z68.22 Body mass index [BMI] 22.0-22.9, adult | CPT/HCPCS: 99396 ==